=== PATIENT | male | born 1965 | race Caucasian/White ===

== ENCOUNTER 2016-03-19 06:31 | Outpatient (CLI) | payer OTHER ==
[2016-01-05 14:41] VITALS: BMI 33.6
--- NOTE | 2016-03-20 09:15 | ECHO2D ---
Date of Exam: 03/19/16 Ordering Physician: KAUSHIK GONZALES Reason for Echo: SOB, CABG 2013 M-Mode Normal Adult Results LV Dimensions Normal Adult Results AoV Opening excursions >1.6 >1.6 LVEDD-base- 3.5-5.8 4.9 Ao root dimensions 2.0-3.7 3.4 LVESD-base- 3.1-4.6 L. Atrium dimensions 1.9-3.8 5.0 Post. Wall thickness 0.8-1.1 1.1 IV septum (thickness) 0.7-1.2 1.2 Post. Wall excursion 0.72-1.3 NORMAL Septal motion 0.4 Systolic motion R. Ventricular cavity 1.5-2.0 NORMAL LVEF 60% 45% Paradoxical septal wall motion 2-D : HYPOKINETIC SEPTUM/ENLARGED LEFT ATRIAL SIZE/NO EFFUSION, NO THROMBUS-- NORMAL LEFT VENTRICULAR SIZE M-MODE: MV: NORMAL AV: NORMAL TV: NORMAL PV: CHAMBER SIZE: ENLARGED LEFT ATRIAL CAVITY WALL MOTION: HYPOKINETIC SEPTUM PERICARDIUM: NORMAL INTERPRETATION: 1. BORDERLINE LEFT VENTRICULAR HYPERTROPHY, ENLARGED LEFT ATRIAL CAVITY 2. HYPOKINETIC SEPTUM--LEFT VENTRICULAR EJECTION FRACTION 45% 3. NORMAL VALVES MTDD
== END 2016-03-19 06:32 | disposition home or self-care (01) ==
LOC: CAR 06:31
PROVIDERS: ATTEND Emergency Medicine
DX: R06.02 Shortness of breath (principal)

== ENCOUNTER 2016-05-24 17:00 | Emergency (ER) ==
[2016-05-24 17:05] VITALS: BP 146/81; TEMP 99.2; BMI 34.2
[2016-05-24] MEDS ORDERED: DEMEROL 25 MG/ML SYRINGE IM STA (17:32)
[2016-05-24] MEDS ORDERED: ZOFRAN 4 MG/2 ML IM STA (17:32)
--- NOTE | 2016-05-24 17:35 | ED.PDOC ---
General ED Provider: Dr. KAUSHIK GONZALES Chief Complaint: Neck Injury Stated Complaint: Patient fell at home on , hurt right side of the neck. hurts to move, Time Seen by Physician: 17:33 Mode of Arrival: Walk-In Information Source: Patient Primary Care Provider: AIME MONROE Nursing and Triage Documentation Reviewed and Agree: Yes Musculoskeletal Complaint Exam - Neck Pain Complaint/Exam Mechanism of Injury: Reports: Trauma Symptoms Are: Still present Timing: Constant Episodes Lasting: Days Initial Severity: Moderate Current Severity: Severe Location: Reports: Radiating Character: Reports: Aching, Throbbing Aggravating: Reports: Movement Alleviating: Reports: None Associated Signs and Symptoms: Denies: Swelling, Redness, Bruising, Fever, Nuchal rigidity, Weakness, Headache, Paresthesia Meningitis Risk Factors: Reports: None Cervical Spine Injury Risk Factors: Reports: None Related Surgical History: Reports: None Carotid Bruit Present: No Pain on Passive Flexion: No Positive Kernig's Sign: No ROM Limited In: Present: Flexion, Extension Tenderness: Present: Midline, Paraspinal Radiates to: Present: Right arm Focal Weakness: Present: None Focal Sensory Loss: Reports: None Differential Diagnoses: Sprain, Trauma Review of Systems - Review Of Systems Constitutional: Reports: No symptoms Eyes: Reports: No symptoms Ears, Nose, Mouth, Throat: Reports: No symptoms Respiratory: Reports: No symptoms Cardiac: Reports: No symptoms GI: Reports: No symptoms : Reports: No symptoms Musculoskeletal: Reports: Back pain, Joint pain Skin: Reports: No symptoms Neurological: Reports: No symptoms Endocrine: Reports: No symptoms Hematologic/Lymphatic: Reports: No symptoms All Other Systems: Reviewed and Negative Past Medical History - Past Medical History Previously Healthy: Yes Endocrine: Reports: DM 2 Cardiovascular: Reports: None Respiratory: Reports: None Hematological: Reports: None Gastrointestinal: Reports: None Genitourinary: Reports: Kidney stones Neuro/Psych: Reports: None Musculoskeletal: Reports: Arthritis Cancer: Reports: None - Surgical History General Surgical History: Reports: CABG (2014), Back Surgery (left knee surgery , right shoulder, back surgery x 4) - Family History Family History: Reports: Unknown - Social History Smoking Status: Never smoker Hx Substance Use: No Alcohol Screening: None Physical Exam - Physical Exam Appearance: Ill-appearing, Obese Pain Distress: Moderate Eyes: MOUNA, EOMI, Conjunctiva clear ENT: Ears normal, Nose normal, Oropharynx normal Respiratory: Airway patent, Breath sounds clear, Breath sounds equal, Respirations nonlabored Cardiovascular: RRR, Pulses normal, No rub, No murmur GI/: Soft, Nontender, No masses, Bowel sounds normal, No Organomegaly Musculoskeletal: Limited ROM Skin: Warm, Dry, Normal color Neurological: Sensation intact, Motor intact, Reflexes intact, Cranial nerves intact, Alert, Oriented Psychiatric: Affect appropriate, Mood appropriate Interpretation - Radiology Interpretation Radiology Interpretation By: Radiologist Radiology Results: Negative Exam Interpreted: CT Scan Critical Care Note - Critical Care Note Total Time (mins): 0 Course - Course Orders, Labs, Meds: Orders Category Date Time Status Meperidine HCl/Pf [Demerol 25 mg/ml Syringe] MEDS 05/24/16 17:32 Discontinued 25 mg IM ONCE STA Ondansetron HCl/Pf [Zofran 4 mg/2 ml] MEDS 05/24/16 17:32 Discontinued 4 mg IM ONCE STA CT CERVICAL SPINE W/O CONTRAST Stat RADS 05/24/16 17:10 Completed Medications Discontinued Medications Generic Name Dose Route Start Last Admin Trade Name Konstantinq PRN Reason Stop Dose Admin Meperidine HCl 25 mg 05/24/16 17:32 Demerol 25 Mg/Ml Syringe IM 05/24/16 17:33 ONCE STA Ondansetron HCl 4 mg 05/24/16 17:32 Zofran 4 Mg/2 Ml IM 05/24/16 17:33 ONCE STA Vital Signs: Temp Pulse Resp BP Pulse Ox 05/24/16 17:01 99.2 F 89 16 146/81 H 96 Departure - Departure Time of Disposition: 18:09 Disposition: HOME SELF-CARE Discharge Problem: Injury of neck Cervical sprain Qualifiers: Encounter type: initial encounter Qualifier Code: (S13.9XXA) Sprain of joints and ligaments of unspecified parts of neck, initial encounter Instructions: Cervical Strain (ED) Condition: Stable Pt referred to PMD for follow-up: Yes Additional Instructions: rest hot pack [place] 7.5 po tid x 12 flexeril 5 po bid x 7 days prednisone 10 po bid x 7 days Prescriptions: Cyclobenzaprine HCl [Flexeril] 5 mg PO BID #14 tablet Hydrocodone Bit/Acetaminophen [[place] 7.5-325] 1 each PO Q8H #12 tablet Prednisone 10 mg PO BIDWM #14 tablet Allergies/Adverse Reactions: Allergies No Known Allergies Allergy (Unverified 05/24/16 17:06) Home Medications: Ambulatory Orders Atorvastatin Calcium [Lipitor] 40 mg PO BEDTIME 05/24/16 Cyclobenzaprine HCl [Flexeril] 5 mg PO BID #14 tablet 05/24/16 Hydrocodone Bit/Acetaminophen [[place] 7.5-325] 1 each PO Q8H #12 tablet 05/24/16 Lisinopril/Hydrochlorothiazide [Lisinopril-Hctz 10-12.5 mg Tab] 1 each PO DAILY 05/24/16 Prednisone 10 mg PO BIDWM #14 tablet 05/24/16 Propranolol HCl 40 mg PO DAILY 05/24/16 Disposition Discussed With: Patient, Family
--- NOTE | 2016-05-24 17:41 | CT ---
EXAM: CT scan cervical spine HISTORY: Trauma COMPARISON: None. FINDINGS: Contiguous axial images were obtained through the cervical spine utilizing 2-mm collimati on. Sagittal and coronal reconstructions were imaged and reviewed.. There is loss of the normal ce rvical lordosis suggesting paraspinal muscle spasm. The vertebral bodies are normal in height and a lignment. Degenerate disc disease is noted at C5-C6 and C6-C7. The facet joints are intact. There is multilevel central canal and foraminal stenosis. IMPRESSION: Loss normal cervical lordosis suggesting muscle spasm. No acute findings.
== END 2016-05-24 18:45 | disposition home or self-care (01) ==
LOC: ED 17:00
DX: S13.9XXA Sprain of joints and ligaments of unspecified parts of neck, initial encounter (principal); W19.XXXA Unspecified fall, initial encounter; Y92.009 Unspecified place in unspecified non-institutional (private) residence as the place of occurrence of the external cause
CPT/HCPCS: 96372; 99283

== ENCOUNTER 2016-06-23 14:16 | Emergency (ER) ==
[2016-06-23 14:16] VITALS: BMI 34.2
[2016-06-23 14:21] VITALS: BP 132/93; TEMP 98.5
--- NOTE | 2016-06-23 15:16 | ED.PDOC ---
General ED Provider: Dr. LAURA AGOSTO JR Chief Complaint: Back Pain Stated Complaint: patient felt pop in lower back when helping father out of wheelchair. states he has pain in both legs when he tries to put weight on them. c/o numbness to left leg all the way to toes. 45 MINUTES 98.5 8620 95% 132/93 8/10 Time Seen by Physician: 15:16 Mode of Arrival: Wheelchair Information Source: Patient Exam Limitations: No limitations Primary Care Provider: AIME MONROE Nursing and Triage Documentation Reviewed and Agree: No Review of Systems - Review Of Systems Constitutional: Reports: No symptoms Eyes: Reports: No symptoms Ears, Nose, Mouth, Throat: Reports: No symptoms Respiratory: Reports: No symptoms Cardiac: Reports: No symptoms GI: Reports: No symptoms : Reports: No symptoms Musculoskeletal: Reports: Back pain Skin: Reports: No symptoms Neurological: Reports: Tingling, Weakness Endocrine: Reports: No symptoms Hematologic/Lymphatic: Reports: No symptoms All Other Systems: Other Past Medical History - Past Medical History Previously Healthy: Yes Endocrine: Reports: DM 2 Cardiovascular: Reports: CAD Respiratory: Reports: None Hematological: Reports: None Gastrointestinal: Reports: None Genitourinary: Reports: Kidney stones Neuro/Psych: Reports: None Musculoskeletal: Reports: Arthritis Cancer: Reports: None - Surgical History General Surgical History: Reports: CABG (2014), Back Surgery (left knee surgery , right shoulder, back surgery x 4) - Family History Family History: Reports: Unknown - Social History Smoking Status: Never smoker Hx Substance Use: No Alcohol Screening: None Physical Exam - Physical Exam Appearance: Well-appearing, Obese Pain Distress: Moderate Eyes: MOUNA, EOMI, Conjunctiva clear ENT: Ears normal, Nose normal, Oropharynx normal Neck: Supple Respiratory: Airway patent, Breath sounds clear, Breath sounds equal, Respirations nonlabored Cardiovascular: RRR, Pulses normal, No rub, No murmur GI/: Soft, Nontender, No masses, Bowel sounds normal, No Organomegaly Musculoskeletal: Normal strength, ROM intact, No edema, No calf tenderness ( tender low back left>>right) Skin: Warm, Dry, Normal color Neurological: Sensation intact, Motor intact, Reflexes intact, Cranial nerves intact, Alert, Oriented Psychiatric: Affect appropriate, Mood appropriate Critical Care Note - Critical Care Note Total Time (mins): 0 Course - Course Orders, Labs, Meds: Orders Category Date Time Status Hydromorphone HCl/Pf [Dilaudid 2 mg/ml Syringe] MEDS 06/23/16 17:04 Discontinued 2 mg IM ONCE STA Ketorolac Tromethamine [Toradol] MEDS 06/23/16 15:34 Discontinued 60 mg IM ONCE STA Ondansetron HCl/Pf [Zofran 4 mg/2 ml] MEDS 06/23/16 17:04 Discontinued 4 mg IM ONCE STA Promethazine HCl [Phenergan 25 mg/ml Vial] MEDS 06/23/16 15:35 Discontinued 25 mg IM ONCE STA CT LUMBAR SPINE W/O CONTRAST Stat RADS 06/23/16 15:35 Completed Medications Discontinued Medications Generic Name Dose Route Start Last Admin Trade Name Freq PRN Reason Stop Dose Admin Hydromorphone HCl 2 mg 06/23/16 17:04 06/23/16 17:28 Dilaudid 2 Mg/Ml Syringe IM 06/23/16 17:05 2 mg ONCE STA Administration Ketorolac Tromethamine 60 mg 06/23/16 15:34 06/23/16 16:12 Toradol IM 06/23/16 15:35 60 mg ONCE STA Administration Ondansetron HCl 4 mg 06/23/16 17:04 06/23/16 17:28 Zofran 4 Mg/2 Ml IM 06/23/16 17:05 4 mg ONCE STA Administration Promethazine HCl 25 mg 06/23/16 15:35 06/23/16 16:13 Phenergan 25 Mg/Ml Vial IM 06/23/16 15:36 25 mg ONCE STA Administration Vital Signs: Temp Pulse Resp BP Pulse Ox 06/23/16 14:17 98.5 F 86 20 132/93 H 95 Departure - Departure Time of Disposition: 17:47 Disposition: HOME SELF-CARE Discharge Problem: Low back strain Instructions: Low Back Strain (ED), Lower Back Exercises (ED) Condition: Good Pt referred to PMD for follow-up: Yes Additional Instructions: limit lifting for two weeks recheck PMD one week avoid bed rest Please follow-up with Dr. Monroe in 1-5 days. Prescriptions: Hydrocodone Bit/Acetaminophen [[place] 10-325] 1 each PO Q6HR PRN #14 tablet PRN Reason: Severe Pain Naproxen [Naprosyn] 500 mg PO Q12HR PRN #30 tablet PRN Reason: PAIN Cyclobenzaprine HCl [Flexeril] 5 mg PO TID PRN #15 tablet PRN Reason: Spasms Allergies/Adverse Reactions: Allergies No Known Allergies Allergy (Unverified 05/24/16 17:06) Home Medications: Ambulatory Orders Atorvastatin Calcium [Lipitor] 40 mg PO BEDTIME 05/24/16 Lisinopril/Hydrochlorothiazide [Lisinopril-Hctz 10-12.5 mg Tab] 1 each PO DAILY 05/24/16 Propranolol HCl 40 mg PO DAILY 05/24/16 Canagliflozin [Invokana] 300 mg PO DAILY 06/23/16 Cyclobenzaprine HCl [Flexeril] 5 mg PO TID PRN #15 tablet 06/23/16 Hydrocodone Bit/Acetaminophen [[place] 10-325] 1 each PO Q6HR PRN #14 tablet 06/23 Insulin Glargine,Hum.rec.anlog [Lantus Solostar] 100 unit SQ BEDTIME 06/23/16 Insulin Lispro [Humalog] 10 unit SUBCUT TIDWM PRN 06/23/16 Naproxen [Naprosyn] 500 mg PO Q12HR PRN #30 tablet 06/23/16
[2016-06-23] MEDS ORDERED: TORADOL IM STA (15:34)
[2016-06-23] MEDS ORDERED: PHENERGAN 25 MG/ML VIAL IM STA (15:35)
--- NOTE | 2016-06-23 16:39 | CT ---
Exam: CT exam of the lumbar spine without intravenous contrast. Comparison: 12/16/2015. Reason for exam: Acute pain left lumbar spine. FINDINGS: Multilevel degenerative disc disease is seen throughout the lumbar spine with anterior and posterior osteophyte formation and facet hypertrophy and loss of intervertebral body disc space height. No acute fracture. The vertebral body heights are relatively well maintained. There is a similar a ppearing grade 1 retrolithesis of L5 on S1. T11-T12: Small broad-based disc bulge with minimal impression on the thecal sac and minimal foramin al narrowing secondary to facet hypertrophy. T11-L1: No significant impression on the central canal or foraminal narrowing. L1-L2: Small broad-based disc bulge with minimal impression on the thecal sac and mild foraminal na rrowing bilaterally secondary to a combination of extruded disc and facet hypertrophy. L2-L3: Small broad-based disc bulge with minimal impression on the thecal sac and mild bilateral fo raminal narrowing secondary to a combination of disc disease, ligamentous and facet hypertrophy. L3-L4: Small broad-based disc bulge causing minimal impression on the thecal sac and mild central c anal narrowing. There is mild right and moderate left foraminal narrowing secondary to a combinatio n of extruded disc with ligamentous and facet hypertrophy. There is vacuum disc phenomenon with mod erate degenerative changes in the left superior and inferior articulating facets at this level. L4-L5: Small broad-based disc bulge with vacuum disc phenomenon causing minimal impression on the ce ntral canal with mild right-sided foraminal narrowing and moderate left-sided foraminal narrowing se condary to a combination of ligamentous hypertrophy and facet arthropathy. There is moderate degene rative change in the articulating facets on the left at this level with vacuum disc phenomenon. L5-S1: Broad-based disc bulge with mild to moderate narrowing of the foramina bilaterally left wors e right secondary to extruded disc, posterior osteophyte formation, with ligamentous and facet hyper trophy. Impression: 1. No acute fracture is seen within the lumbar spine. 2. Multilevel degenerative disc disease with moderate to marked facet arthropathy and vacuum disc p henomenon with anterior osteophyte formation and intervertebral body disc space height loss. If clinical conc shena exists for radiculopathy or myelopathy MRI may be performed.
[2016-06-23] MEDS ORDERED: DILAUDID 2 MG/ML SYRINGE IM STA (17:04)
[2016-06-23] MEDS ORDERED: ZOFRAN 4 MG/2 ML IM STA (17:04)
== END 2016-06-23 18:22 | disposition home or self-care (01) ==
LOC: ED 14:16
DX: S39.012A Strain of muscle, fascia and tendon of lower back, initial encounter (principal); X50.0XXA Overexertion from strenuous movement or load, initial encounter
CPT/HCPCS: 96372; 99283

== ENCOUNTER 2016-06-27 10:19 | Inpatient (IN) ==
[2016-06-27 10:55] VITALS: BMI 36.1
[2016-06-27] MEDS ORDERED: DILAUDID 2 MG/ML SYRINGE IM STA (11:03)
[2016-06-27] MEDS ORDERED: DECADRON 4 MG/ML SDV IM STA (11:03)
[2016-06-27] MEDS ORDERED: DILAUDID 2 MG/ML SYRINGE ONE (11:37)
[2016-06-27] MEDS: TORADOL IVP SCH ×2 (14:42→21:50)
[2016-06-27] MEDS: NORCO 7.5-325 PO SCH ×2 (14:43→20:27)
[2016-06-27] MEDS: MOBIC PO SCH (17:08)
[2016-06-27] MEDS: PREDNISONE PO SCH (17:08)
[2016-06-27] MEDS: HUMULIN R SUBCUT PRN ×2 (17:20→20:21)
[2016-06-27] MEDS: LYRICA PO SCH (20:20)
[2016-06-27] MEDS: LIPITOR PO SCH (20:20)
[2016-06-27] MEDS: LANTUS SUBCUT SCH (20:21)
[2016-06-27] MEDS ORDERED: NON-FORMULARY MEDICATION (Atorvastatin Calcium [Lipitor] 40 MG) PO SCH ×22 (21:00)
[2016-06-27] MEDS ORDERED: FLEXERIL PO SCH (21:00)
[2016-06-27] MEDS ORDERED: INSULIN GLARGINE HUM REC ANLOG 70 UNIT SQ SCH (21:00)
[2016-06-27] MEDS ORDERED: VALIUM PO SCH (21:00)
[2016-06-28] MEDS: TORADOL IVP SCH ×3 (05:42→17:50)
[2016-06-28] MEDS: PROTONIX PO SCH (05:42)
[2016-06-28] MEDS: NORCO 7.5-325 PO SCH ×3 (05:42→20:47)
[2016-06-28] MEDS: HUMULIN R SUBCUT PRN ×4 (06:54→20:48)
[2016-06-28] MEDS: HYDROCHLOROTHIAZIDE PO SCH (08:55)
[2016-06-28] MEDS: PREDNISONE PO SCH ×2 (08:55→16:58)
[2016-06-28] MEDS: LANTUS SUBCUT SCH ×2 (09:07→20:47)
[2016-06-28] MEDS: LYRICA PO SCH ×2 (09:12→20:47)
[2016-06-28] MEDS: ZESTRIL PO SCH (09:12)
[2016-06-28] MEDS: TOPROL XL PO SCH (09:12)
[2016-06-28] MEDS: NON-FORMULARY MEDICATION (Canagliflozin [Invokana] 300 MG) PO SCH (09:18)
[2016-06-28 11:58] LABS: BASOPHILS % (AUTO) 0.2 % (0.0-3.0); EOSINOPHILS # (AUTO) 0.1 K/ul (0.0-0.7); EOSINOPHILS % (AUTO) 0.4 % (0.0-7.0); HEMOGLOBIN 13.7 g/dl (14.0-18.0); IMMATURE GRANULOCYTE % (AUTO) 0.5 % (0.0-5.0); LYMPHOCYTES # (AUTO) 1.8 K/uL (0.60-3.4); LYMPHOCYTES % (AUTO) 13.1 (10.0-50.0); MEAN CORPUSCULAR HEMOGLOBIN 31.1 pg (27.0-31.0); MEAN CORPUSCULAR HGB CONC 34.3 (31.8-35.4); MEAN CORPUSCULAR VOLUME 90.9 fl (80.0-94.0); MONOCYTES # (AUTO) 0.8 K/uL (0.4-2.0); MONOCYTES % (AUTO) 5.5 (0-10); NEUTROPHILS % (AUTO) 80.3; PLATELET COUNT 286 10^3/uL (140-440); WHITE BLOOD COUNT 13.73 K/ul (4.2-10.2)
[2016-06-28 12:19] LABS: ALBUMIN 3.8 g/dL (3.4-5.0); ANION GAP 16.1; BILIRUBIN,TOTAL 0.34 mg/dL (0.00-1.20); BUN/CREATININE RATIO 29.7; CALCIUM 10.1 mg/dL (8.2-10.2); CREATININE 1.01 mg/dL (0.60-1.10); POTASSIUM 4.1 mmol/L (3.5-5.1); TOTAL PROTEIN 7.6 g/dL (6.4-8.2)
--- NOTE | 2016-06-28 14:48 | DI ---
EXAM: Chest two views HISTORY: Cough COMPARISON: 05/20/2012 TECHNIQUE: Two views of the chest were performed FINDINGS: The lungs are clear. There is no pleural effusion or pneumothorax. The heart is mildly enlarged and unchanged in size. The mediastinal contour is normal. There are median sternotomy wire s. There are no acute abnormalities of the bones. IMPRESSION: Cardiomegaly. No acute cardiopulmonary process.
--- NOTE | 2016-06-28 16:51 | MRI ---
EXAM: Lumbar spine MRI without contrast. HISTORY: Back pain. COMPARISON: Lumbar spine CT scan 06/23/2016 and lumbar spine MRI 05/20/2010. TECHNIQUE: Multiplanar, multisequence MR images were acquired of the lumbar spine without contrast. FINDINGS: Five lumbar-type vertebra are present. There is there is 2.3 mm retrolisthesis of L3 on L 4 and 5.4 mm retrolisthesis of L5 on S1. The superior endplate of S1 is mildly smaller than the inf erior endplate of L5. The lumbar vertebra are normal in height and intrinsic bone marrow signal. A t L1-2, there is mild disc space narrowing and endplate irregularity with small chronic Schmorl's no ariane and disc desiccation. At L3-4, L4-5 and L5-S1, there is moderate disc space narrowing with mild to moderate degenerative endplate changes, disc desiccation and vacuum phenomenon. Conus medullari s ends at L1 and has normal signal intensity. Canal diameter is developmentally narrow. The visualized liver and kidneys are unremarkable. There are no paravertebral masses. L1-2: There is a minimal disc bulge and mild bilateral hypertrophic facet arthropathy and ligamentu m flavum hypertrophy. L2-3: There is a minimal disc bulge that minimally narrows inferior neural foramina bilaterally and mild to moderate bilateral hypertrophic facet arthropathy and ligamentum flavum hypertrophy. There is mild spinal stenosis and minor right and mild left neural foraminal stenosis. AP diameter of th e thecal sac is 9 mm. L3-4: There is a mild disc bulge and mild to moderate bilateral hypertrophic facet arthropathy and ligamentum flavum hypertrophy. This causes mild spinal stenosis, left lateral recess stenosis with possible encroachment on the left L4 nerve roots and mild right and mild to moderate left neural for aminal stenosis with encroachment on the exiting left L3 nerve. AP diameter of the thecal sac is 9. 4 mm. L4-5: There is a diffuse disc bulge that is asymmetric to the left with mild to moderate right and moderate left hypertrophic facet arthropathy and ligamentum flavum hypertrophy. There is a moderate left facet effusion. These findings cause mild spinal stenosis, left lateral recess stenosis with p ossible encroachment on the left L5 nerve roots and mild right and moderate left neural foraminal st enosis with encroachment on the left L4 nerve. AP diameter of the thecal sac is 9.4 mm. L5-S1: There are postoperative bilateral hemilaminectomy and partial medial facetectomy changes. T here is hypointense T1 soft tissue signal in the anterior and right lateral epidural space which ext ends into the medial right neural foramen partially surrounding the right L5 nerve and right S1 nerv e in the lateral recess. There is more focal soft tissue signal along the right posterolateral charles in of the disc that extends into the right neural foramen that may represent asymmetry of the disc b ulge and fibrosis. Contrast was not administered. There is a dorsal spondylotic ridge with a more focal central component that effaces the ventral thecal sac, contacts both anterior S1 nerves, grea ter on the right and narrows the inferior right neural foramen. Residual bilateral facet hypertrophy is present. There is severe bilateral neural foraminal stenosis, greater on the right with encroac hment on both L5 nerves. IMPRESSION: 1. Moderate lumbar degenerative spondylosis. 2. Mild spinal stenosis at L2-3, L3-4 and L4-5. 3. Status post bilateral L5-S1 hemilaminectomies and partial medial facetectomies. No central nina l stenosis. 4. Mild to moderate left L3-4, moderate left L4-5 and severe bilateral L5-S1 neural foraminal steno sis, greater on the right with encroachment on both L5 nerves.
[2016-06-28] MEDS: MOBIC PO SCH (16:58)
[2016-06-28] MEDS: LIPITOR PO SCH (20:47)
[2016-06-29] MEDS: TORADOL IVP SCH ×3 (00:50→17:11)
[2016-06-29] MEDS: HUMULIN R SUBCUT PRN ×4 (06:16→20:39)
[2016-06-29] MEDS: NORCO 7.5-325 PO SCH ×3 (06:17→20:40)
[2016-06-29] MEDS: PROTONIX PO SCH (06:17)
[2016-06-29 06:52] LABS: BASOPHILS % (AUTO) 0.3 % (0.0-3.0); EOSINOPHILS # (AUTO) 0.3 K/ul (0.0-0.7); EOSINOPHILS % (AUTO) 2.3 % (0.0-7.0); HEMATOCRIT 40.2 % (42.0-52.0); HEMOGLOBIN 13.7 g/dl (14.0-18.0); IMMATURE GRANULOCYTE % (AUTO) 0.3 % (0.0-5.0); LYMPHOCYTES # (AUTO) 3.3 K/uL (0.60-3.4); LYMPHOCYTES % (AUTO) 27.6 (10.0-50.0); MEAN CORPUSCULAR HEMOGLOBIN 31.1 pg (27.0-31.0); MEAN CORPUSCULAR HGB CONC 34.1 (31.8-35.4); MEAN CORPUSCULAR VOLUME 91.2 fl (80.0-94.0); MONOCYTES # (AUTO) 0.8 K/uL (0.4-2.0); MONOCYTES % (AUTO) 6.5 (0-10); NEUTROPHILS # (AUTO) 7.4 K/ul (2.0-6.9); PLATELET COUNT 270 10^3/uL (140-440); RED BLOOD COUNT 4.41 10^6/ul (4.70-6.10)
[2016-06-29 07:09] LABS: ALBUMIN 3.7 g/dL (3.4-5.0); ALBUMIN/GLOBULIN RATIO 1.03; ANION GAP 15.7; BILIRUBIN,TOTAL 0.34 mg/dL (0.00-1.20); BUN/CREATININE RATIO 26.89; CALCIUM 9.6 mg/dL (8.2-10.2); CREATININE 1.19 mg/dL (0.60-1.10); POTASSIUM 3.7 mmol/L (3.5-5.1); TOTAL PROTEIN 7.3 g/dL (6.4-8.2)
[2016-06-29] MEDS: ZESTRIL PO SCH (08:58)
[2016-06-29] MEDS: HYDROCHLOROTHIAZIDE PO SCH (08:58)
[2016-06-29] MEDS: TOPROL XL PO SCH (08:59)
[2016-06-29] MEDS: PREDNISONE PO SCH ×2 (08:59→16:46)
[2016-06-29] MEDS: LYRICA PO SCH ×2 (08:59→20:40)
[2016-06-29] MEDS: NON-FORMULARY MEDICATION (Canagliflozin [Invokana] 300 MG) PO SCH (09:00)
[2016-06-29] MEDS: LANTUS SUBCUT SCH ×2 (09:00→20:39)
[2016-06-29] MEDS: MOBIC PO SCH (16:45)
[2016-06-29] MEDS: LIPITOR PO SCH (20:39)
[2016-06-30] MEDS: TORADOL IVP SCH ×3 (01:43→17:35)
[2016-06-30] MEDS: PROTONIX PO SCH (05:48)
[2016-06-30] MEDS: HUMULIN R SUBCUT PRN ×4 (05:49→21:18)
[2016-06-30] MEDS: NORCO 7.5-325 PO SCH ×3 (05:49→21:17)
[2016-06-30 06:06] LABS: BASOPHILS # (AUTO) 0.1 K/uL (0-0.2); BASOPHILS % (AUTO) 0.5 % (0.0-3.0); EOSINOPHILS # (AUTO) 0.3 K/ul (0.0-0.7); EOSINOPHILS % (AUTO) 2.4 % (0.0-7.0); HEMATOCRIT 39.3 % (42.0-52.0); HEMOGLOBIN 13.5 g/dl (14.0-18.0); IMMATURE GRANULOCYTE % (AUTO) 0.6 % (0.0-5.0); LYMPHOCYTES # (AUTO) 2.9 K/uL (0.60-3.4); LYMPHOCYTES % (AUTO) 27.1 (10.0-50.0); MEAN CORPUSCULAR HGB CONC 34.4 (31.8-35.4); MEAN CORPUSCULAR VOLUME 90.3 fl (80.0-94.0); MONOCYTES # (AUTO) 0.9 K/uL (0.4-2.0); NEUTROPHILS # (AUTO) 6.6 K/ul (2.0-6.9); NEUTROPHILS % (AUTO) 61.4; PLATELET COUNT 262 10^3/uL (140-440); RED BLOOD COUNT 4.35 10^6/ul (4.70-6.10); WHITE BLOOD COUNT 10.79 K/ul (4.2-10.2)
[2016-06-30 06:23] LABS: ALBUMIN 3.5 g/dL (3.4-5.0); ALBUMIN/GLOBULIN RATIO 1.03; ANION GAP 13.9; BILIRUBIN,TOTAL 0.34 mg/dL (0.00-1.20); BUN/CREATININE RATIO 31.25; CALCIUM 9.3 mg/dL (8.2-10.2); CREATININE 0.96 mg/dL (0.60-1.10); POTASSIUM 3.9 mmol/L (3.5-5.1); TOTAL PROTEIN 6.9 g/dL (6.4-8.2)
[2016-06-30] MEDS ORDERED: NUBAIN IM STA (08:08)
[2016-06-30 08:27] LABS: CHOL/HDL RATIO 3.7 (4.5-6.4)
[2016-06-30] MEDS: ZESTRIL PO SCH (08:36)
[2016-06-30] MEDS: LYRICA PO SCH ×2 (08:36→21:17)
[2016-06-30] MEDS: PREDNISONE PO SCH (08:37)
[2016-06-30] MEDS: TOPROL XL PO SCH (08:37)
[2016-06-30] MEDS: HYDROCHLOROTHIAZIDE PO SCH (08:37)
[2016-06-30] MEDS: LANTUS SUBCUT SCH ×2 (08:39→21:17)
[2016-06-30] MEDS: NON-FORMULARY MEDICATION (Canagliflozin [Invokana] 300 MG) PO SCH (09:36)
--- NOTE | 2016-06-30 11:40 | PCM.PROG ---
Attending Provider: ATTENDING PROVIDER: Dr. AIME MONROE DATE OF SERVICE: 06/30/16 SUBJECTIVE: This 50 year old WHITE/ M was hospitalized 06/27/16. The patient is admitted with severe left sciatica with severe pain in left lower extremity with tingling and numbness. The pain is less than before 5 to 7 on a scale of 1 to 10. The patient is up to the bathroom with walker. The left lower extremity is thinner than the right. The patient is up and about. The pain is continuous; he had surgery done on his lower back. REVIEW OF SYSTEMS: CONSTITUTIONAL: No night sweats. No fatigue, malaise, lethargy. No fever or chills. HEENT: Eyes: No visual changes. No eye pain. No eye discharge. ENT: No runny nose. No epistaxis. No sinus pain. No odynophagia. No congestion. RESPIRATORY: No cough, no congestion. No hemoptysis. CARDIOVASCULAR: No angina symptoms. No CHF symptoms. No atypical chest pain for CAD. No palpitations. No shortness of breath. GASTROINTESTINAL: No abdominal pain. No nausea or vomiting. No diarrhea or constipation. No hematemesis. No hematochezia. GENITOURINARY: No urgency. No frequency. No dysuria. No hematuria. No obstructive symptoms. No discharge. No pain. No significant abnormal bleeding. MUSCULOSKELETAL: Pain in in left lower extremity with tingling and numbness. NEUROLOGICAL: Awake, alert, oriented to time, place and person. No headache. No neck pain. No syncope. No seizures. No dizziness. PSYCHIATRIC: Not anxious. No depression. No suicidal thoughts. No homicidal thoughts. SKIN: No rash. No lesions. No wounds. ENDOCRINE: No unexplained weight loss. No weight gain. HEMATOLOGIC/LYMPHATIC: No anemia. No purpura. No petechiae. No prolonged or excessive bleeding. No palpable lymph nodes. PHYSICAL EXAMINATION: GENERAL: The patient is awake, alert and oriented, lying/sitting in bed in no distress. VITAL SIGNS: Temperature 97.6 F, Pulse 64, Respiratory Rate 20, BP 92/56, Pulse Ox 95% HEENT: Head normocephalic, atraumatic. Eyes: Extraocular muscles are intact. Pupils are equal, round and reactive to light and accommodation. Ears: No lesions. Nose appeared normal. Throat: No exudate or erythema. NECK: Supple. No JVD, no carotid bruit. No lymphadenopathy or thyromegaly. LUNGS: Clear to auscultation. Percussion note normal. Chest symmetrical. HEART: S1, S2, no S3. No murmurs. No cyanosis or clubbing. No ascites. Pulses: Dorsalis pedis and posterior tibial pulses +1 to +2 both sides. ABDOMEN: Soft. Non-tender. Bowel sounds active. No CVA tenderness. No mass felt. EXTREMITIES: No edema. Full range of motion of all extremities, equal. NEUROLOGIC: Increased reflexes on left lower extremity. No headache, no double vision or headache. SKIN: Not dry. Intact. Turgor-normal. LYMPHATIC: No palpable lymph nodes/no lymphedema. MUSCULOSKELETAL: Normal joints with no swelling. Muscle tone is normal. LAB REVIEW: 06/30/16 06:02 06/30/16 06:02 06/30/16 06:02: WBC 10.79 H, RBC 4.35 L, Hgb 13.5 L, Hct 39.3 L, MCV 90.3, MCH 31.0, MCHC 34.4, RDW Coeff of Marit[place] 13.5, Plt Count 262, Immature Gran % (Auto) 0.6, Neut % (Auto) 61.4, Lymph % (Auto) 27.1, Hall % (Auto) 8.0, Eos % (Auto) 2.4, Baso % (Auto) 0.5, Immature Gran # (Auto) 0.1, Neut # 6.6, Lymph # 2.9, Hall # 0.9, Eos # 0.3, Baso # 0.1, Sodium 138, Potassium 3.9, Chloride 104, Carbon Dioxide 24, Anion Gap 13.9, BUN 30 H, Creatinine 0.96, Estimated GFR ( MDRD) 82.00, BUN/Creatinine Ratio 31.25, Glucose 176 H, Calcium 9.3, Total Bilirubin 0.34, AST 12 L, ALT 16, Alkaline Phosphatase 43 L, Total Protein 6.9, Albumin 3.5, Globulin 3.4, Albumin/Globulin Ratio 1.03 ASSESSMENT: 1. Sciatica with radiculopathy. 2. Status post back surgery. 3. Abnormal EKG. 4. Hypertension. 5. Hyperglycemia could be from steroids. PLAN: 1. Refer to [facility] to be seen by back specialist, the patient is to go to the walk in clinic. Also, could be picked up by pain management with them; however, the patient has a scheduled appointment on July 09, 2016, Dr. Gross [facility]. 2. Continue Toradol, [place] and Mobic. 3. Continue Prednisone 10 mg b.i.d. 4. Nubain 10 mg IM once STAT 5. EKG shows inferior wall, will do lipid profile and A1C. Plan and coordination of the patient's care discussed in the presence of Services Rep and nurse. CONDITION: Stable SCRIBED BY: NINA BAKER Surface Grinder Tender scribed while in presence of service performed by Dr. AIME MONROE on 06/30/16 ([id number])
--- NOTE | 2016-06-30 14:43 | PN ---
DATE OF SERVICE: 06/28/16 SUBJECTIVE: The patient is a 50 year old white male hospitalized with left sciatica with severe DJD of spine with couple of surgeries, discectomy in the past. The patient was practically unable to walk, the pain was 8-10 on scale of 1-10 and now the pain is rated as 5 out of scale of 1-10. He is feeling somewhat better and able to move around in the room. The numbness in the left foot and left leg is a little less. REVIEW OF SYSTEMS: CONSTITUTIONAL: No night sweats. No fatigue, malaise, lethargy. No fever or chills. HEENT: Eyes: No visual changes. No eye pain. No eye discharge. ENT: No runny nose. No epistaxis. No sinus pain. No sore throat. No odynophagia. No congestion. RESPIRATORY: No cough, no congestion. No hemoptysis. CARDIOVASCULAR: No angina symptoms. No CHF symptoms. No atypical chest pain for CAD. No palpitations. No shortness of breath. No. PND. No Orthopnea. GASTROINTESTINAL: No abdominal pain. No nausea or vomiting. No diarrhea or constipation. No hematemesis. No hematochezia. GENITOURINARY: No urgency. No frequency. No dysuria. No hematuria. No obstructive symptoms. No discharge. No pain. No significant abnormal bleeding. MUSCULOSKELETAL: No musculoskeletal pain; no joint swelling. Left sciatica pain better, rated as 5-6 on a scale of 1-10. NEUROLOGICAL: No headache. No neck pain. No syncope. No seizures. No dizziness. PSYCHIATRIC: Not anxious. No depression. No suicidal thoughts. No homicidal thoughts. SKIN: No rash. No lesions. No wounds. ENDOCRINE: No unexplained weight loss. No weight gain. HEMATOLOGIC/LYMPHATIC: No anemia. No purpura. No petechiae. No prolonged or excessive bleeding. No palpable lymph nodes. PHYSICAL EXAMINATION: GENERAL: The patient is oriented to time, place and person. VITAL SIGNS: Temperature 97.5, pulse 84, respiratory rate 20, blood pressure 109 /63 and pulse ox 96%. HEENT: Head normocephalic, atraumatic. Eyes: Extraocular muscles are intact. Pupils are equal, round and reactive to light and accommodation. Ears: No lesions. Nose appeared normal. Throat: No exudate or erythema. NECK: Supple. No JVD, no carotid bruit. No lymphadenopathy or thyromegaly. LUNGS: Decreased breath sounds but clear to auscultation. Percussion note normal. Chest symmetrical. HEART: S1, S2, no S3. No murmurs. No cyanosis or clubbing. No ascites. Pulses: Dorsalis pedis and posterior tibial pulses +1 to +2 both sides. ABDOMEN: Soft. Nontender. Bowel sounds active. No CVA tenderness. No mass felt. EXTREMITIES: No edema. Full range of motion of all extremities, equal. NEUROLOGIC: No focal deficit. Cranial nerves II through XII are grossly intact. No headache, no double vision or headache. SKIN: Not dry. Intact. Turgor - normal. LYMPHATIC: No palpable lymph nodes/no lymphedema. MUSCULOSKELETAL: Normal joints with no swelling. Muscle tone is normal. ASSESSMENT: 1. Left sciatica with history of two discectomies in the past PLAN: 1. Continue steroids 2. Continue analgesics 3. Continue exercises 4. MRI showed DJD of the spine. The patient explained about the findings and the patient is going to be referred to neurosurgeon and he agreed. The neurosurgeon may decided to [facility]. The patient already has an appointment with Pain Management with Dr. Hagen CONDITION: Stable. TIME SPENT: More than 30 minutes. Plan and coordination of the patient's care discussed in the presence of nurse. SUHA
--- NOTE | 2016-06-30 14:53 | PN ---
DATE OF SERVICE: 06/29/16 SUBJECTIVE: The patient is a 50 year old white male hospitalized with left sciatica. The patient had tingling and numbness practically unable to walk with severe pain, 9 -10 on scale of 1-10 on admission. The patient's condition has improved and his pain is still there but much less. He has been on steroids and analgesics and anti-inflammatory. MRI report again discussed with the patient and the patient is agreeable to be seen by neurosurgeon. The patient also has an appointment with Pain Management at [facility] pain clinic. REVIEW OF SYSTEMS: CONSTITUTIONAL: No night sweats. No fatigue, malaise, lethargy. No fever or chills. HEENT: Eyes: No visual changes. No eye pain. No eye discharge. ENT: No runny nose. No epistaxis. No sinus pain. No sore throat. No odynophagia. No congestion. RESPIRATORY: No cough, no congestion. No hemoptysis. CARDIOVASCULAR: No angina symptoms. No CHF symptoms. No atypical chest pain for CAD. No palpitations. No shortness of breath. GASTROINTESTINAL: No abdominal pain. No nausea or vomiting. No diarrhea or constipation. No hematemesis. No hematochezia. GENITOURINARY: No urgency. No frequency. No dysuria. No hematuria. No obstructive symptoms. No discharge. No pain. No significant abnormal bleeding. MUSCULOSKELETAL: No musculoskeletal pain; no joint swelling. Back pain. NEUROLOGICAL: No headache. No neck pain. No syncope. No seizures. No dizziness. PSYCHIATRIC: Not anxious. No depression. No suicidal thoughts. No homicidal thoughts. SKIN: No rash. No lesions. No wounds. ENDOCRINE: No unexplained weight loss. No weight gain. HEMATOLOGIC/LYMPHATIC: No anemia. No purpura. No petechiae. No prolonged or excessive bleeding. No palpable lymph nodes. PHYSICAL EXAMINATION: GENERAL: The patient is oriented to time, place and person. VITAL SIGNS: Temperature 97.6, pulse 68, respiratory rate 16, blood pressure 103/65 and pulse ox 96%. HEENT: Head normocephalic, atraumatic. Eyes: Extraocular muscles are intact. Pupils are equal, round and reactive to light and accommodation. Ears: No lesions. Nose appeared normal. Throat: No exudate or erythema. NECK: Supple. No JVD, no carotid bruit. No lymphadenopathy or thyromegaly. LUNGS: Decreased breath sounds but clear to auscultation. Percussion note normal. Chest symmetrical. HEART: S1, S2, no S3. No murmurs. No cyanosis or clubbing. No ascites. Pulses: Dorsalis pedis and posterior tibial pulses +1 to +2 both sides. ABDOMEN: Soft. Nontender. Bowel sounds active. No CVA tenderness. No mass felt. EXTREMITIES: No edema. Full range of motion of all extremities, equal. NEUROLOGIC: No focal deficit. Cranial nerves II through XII are grossly intact. No headache, no double vision or headache. SKIN: Not dry. Intact. Turgor - normal. LYMPHATIC: No palpable lymph nodes/no lymphedema. MUSCULOSKELETAL: Normal joints with no swelling. Muscle tone is normal. LABS: hgb 13.7, hct 40,WBC 11,800 normal differential, creatinine 1.1, BUN 32, potassium 3.7 and T4 TSH normal. ASSESSMENT: 1. Left sciatica with severe DJD of the spine with statue post back surgery PLAN: 1. BMI is 36 and advised to lose weight 2. Weight loss diet discussed 3. Back exercises discussed with the patient and advised back exercises every day 4. The patient is going to be referred to neurosurgeon. 5. Continue followup with Dr. Hagen pain clinic. 6. Narcotics and pain medication with addiction been discussed, Advised not to mix pain medication Narcotics with alcohol or over the counter medications. Advised to stagger the medicine. 7. The patient was explained about steroids, Prednisone, Decadron shot etc with side effects like avascular necrosis of the femur, cataracts, osteoporosis, hyperglycemia, fluid retention and weight gain in detail. CONDITION: Stable Again, discussed about non-steroidal anti-inflammatory and CKD and GI bleed and hypertension. TIME SPENT: More than 30 minutes. Plan and coordination of the patient's care discussed in the presence of nurse. SUHA
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
[2016-06-30] MEDS: MOBIC PO SCH (17:25)
[2016-06-30] MEDS: LIPITOR PO SCH (21:17)
[2016-07-01] MEDS: TORADOL IVP SCH ×3 (00:08→16:12)
[2016-07-01] MEDS: NORCO 7.5-325 PO SCH ×2 (04:53→12:09)
[2016-07-01 05:17] LABS: BASOPHILS # (AUTO) 0.1 K/uL (0-0.2); BASOPHILS % (AUTO) 0.5 % (0.0-3.0); EOSINOPHILS # (AUTO) 0.3 K/ul (0.0-0.7); EOSINOPHILS % (AUTO) 3.1 % (0.0-7.0); HEMATOCRIT 41.2 % (42.0-52.0); HEMOGLOBIN 13.8 g/dl (14.0-18.0); IMMATURE GRANULOCYTE % (AUTO) 0.4 % (0.0-5.0); LYMPHOCYTES # (AUTO) 4.1 K/uL (0.60-3.4); LYMPHOCYTES % (AUTO) 36.7 (10.0-50.0); MEAN CORPUSCULAR HEMOGLOBIN 30.7 pg (27.0-31.0); MEAN CORPUSCULAR HGB CONC 33.5 (31.8-35.4); MEAN CORPUSCULAR VOLUME 91.6 fl (80.0-94.0); MONOCYTES % (AUTO) 8.5 (0-10); NEUTROPHILS # (AUTO) 5.7 K/ul (2.0-6.9); NEUTROPHILS % (AUTO) 50.8; PLATELET COUNT 243 10^3/uL (140-440); WHITE BLOOD COUNT 11.14 K/ul (4.2-10.2)
[2016-07-01 05:40] LABS: ALBUMIN 3.3 g/dL (3.4-5.0); ANION GAP 13.6; BILIRUBIN,TOTAL 0.31 mg/dL (0.00-1.20); BUN/CREATININE RATIO 30.61; CALCIUM 9.3 mg/dL (8.2-10.2); CREATININE 0.98 mg/dL (0.60-1.10); POTASSIUM 3.6 mmol/L (3.5-5.1); TOTAL PROTEIN 6.6 g/dL (6.4-8.2)
[2016-07-01] MEDS: PROTONIX PO SCH (05:59)
[2016-07-01] MEDS ORDERED: PREDNISONE PO SCH (08:00)
[2016-07-01] MEDS ORDERED: VALIUM SYRINGE IVP STA (08:02)
[2016-07-01] MEDS: HYDROCHLOROTHIAZIDE PO SCH (08:25)
[2016-07-01] MEDS: NON-FORMULARY MEDICATION (Canagliflozin [Invokana] 300 MG) PO SCH (08:25)
[2016-07-01] MEDS: TOPROL XL PO SCH (08:26)
[2016-07-01] MEDS: LYRICA PO SCH (08:26)
[2016-07-01] MEDS: ZESTRIL PO SCH (08:26)
[2016-07-01] MEDS: LANTUS SUBCUT SCH (08:27)
[2016-07-01] MEDS ORDERED: NUBAIN IM PRN (08:45)
--- NOTE | 2016-07-01 10:13 | PCM.PROG ---
Attending Provider: ATTENDING PROVIDER: Dr. AIME MONROE DATE OF SERVICE: 07/01/16 SUBJECTIVE: This 50 year old WHITE/ M was hospitalized 06/27/16. The patient is hospitalized with left sciatica. The patient's condition improved initially. This morning he is having a muscle spasm, left lumbar area 6 to 8 on scale of 1 to 10 and quite painful. He states he went to the bathroom and his back started hurting. REVIEW OF SYSTEMS: CONSTITUTIONAL: No night sweats. No fatigue, malaise, lethargy. No fever or chills. HEENT: Eyes: No visual changes. No eye pain. No eye discharge. ENT: No runny nose. No epistaxis. No sinus pain. No odynophagia. No congestion. RESPIRATORY: No cough, no congestion. No hemoptysis. CARDIOVASCULAR: No angina symptoms. No CHF symptoms. No atypical chest pain for CAD. No palpitations. No shortness of breath. GASTROINTESTINAL: No abdominal pain. No nausea or vomiting. No diarrhea or constipation. No hematemesis. No hematochezia. GENITOURINARY: No urgency. No frequency. No dysuria. No hematuria. No obstructive symptoms. No discharge. No pain. No significant abnormal bleeding. MUSCULOSKELETAL: Left sciatica type of pain with muscle spasm. NEUROLOGICAL: Awake, alert, oriented to time, place and person. No headache. No neck pain. No syncope. No seizures. No dizziness. PSYCHIATRIC: Not anxious. No depression. No suicidal thoughts. No homicidal thoughts. SKIN: No rash. No lesions. No wounds. ENDOCRINE: No unexplained weight loss. No weight gain. HEMATOLOGIC/LYMPHATIC: No anemia. No purpura. No petechiae. No prolonged or excessive bleeding. No palpable lymph nodes. PHYSICAL EXAMINATION: GENERAL: The patient is awake, alert and oriented, lying in bed in mild distress. VITAL SIGNS: Temperature 97.0 F, Pulse 74, Respiratory Rate 20, BP 116/73, Pulse Ox 97% HEENT: Head normocephalic, atraumatic. Eyes: Extraocular muscles are intact. Pupils are equal, round and reactive to light and accommodation. Ears: No lesions. Nose appeared normal. Throat: No exudate or erythema. NECK: Supple. No JVD, no carotid bruit. No lymphadenopathy or thyromegaly. LUNGS: Clear to auscultation. Percussion note normal. Chest symmetrical. HEART: S1, S2, no S3. No murmurs. No cyanosis or clubbing. No ascites. Pulses: Dorsalis pedis and posterior tibial pulses +1 to +2 both sides. ABDOMEN: Soft. Non-tender. Bowel sounds active. No CVA tenderness. No mass felt. EXTREMITIES: No edema. Full range of motion of all extremities, equal. NEUROLOGIC: No focal deficit. Cranial nerves II through XII are grossly intact. No headache, no double vision or headache. SKIN: Not dry. Intact. Turgor-normal. LYMPHATIC: No palpable lymph nodes/no lymphedema. MUSCULOSKELETAL: Normal joints with no swelling. Muscle tone is normal. LAB REVIEW: 07/01/16 05:12 07/01/16 05:12 07/01/16 05:12: WBC 11.14 H, RBC 4.50 L, Hgb 13.8 L, Hct 41.2 L, MCV 91.6, MCH 30.7, MCHC 33.5, RDW Coeff of [place]it[place] 13.6, Plt Count 243, Immature Gran % (Auto) 0.4, Neut % (Auto) 50.8, Lymph % (Auto) 36.7, [place] % (Auto) 8.5, Eos % (Auto) 3.1, Baso % (Auto) 0.5, Immature Gran # (Auto) 0.1, Neut # 5.7, Lymph # 4.1 H, Min[place] # 1.0, Eos # 0.3, Baso # 0.1, Sodium 141, Potassium 3.6, Chloride 105, Carbon Dioxide 26, Anion Gap 13.6, BUN 30 H, Creatinine 0.98, Estimated GFR ( MDRD) 80.00, BUN/Creatinine Ratio 30.61, Glucose 133 H, Calcium 9.3, Total Bilirubin 0.31, AST 11 L, ALT 15, Alkaline Phosphatase 53, Total Protein 6.6, Albumin 3.3 L, Globulin 3.3, Albumin/Globulin Ratio 1.00 06/30/16 05:40: Hemoglobin A1c 10.0 H, Triglycerides 214 H, Cholesterol 140, LDL Cholesterol, Calc 59, VLDL Cholesterol 43 H, HDL Cholesterol 38, Cholesterol /HDL Ratio 3.7 L ASSESSMENT: 1. Sciatica, left with radiculopathy. 2. Severe DJD spine status post back surgery 3. CABG status post stents times two 4. Status post back surgery 5. Abnormal EKG. 6. Hypertension. 7. Hyperglycemia could be from steroids. PLAN: 1. Left hip x-ray 2. Valium 2 mg IV now 3. Toradol 30 mg IV 4. Nubain 2 mg IM if needed 5. Again, advised walk-in at the [facility] - will instruct him and we will see how his condition is and depending on that may discharge him. Plan and coordination of the patient's care discussed in the presence of Ophthalmic Technologist and nurse. CONDITION: Stable SCRIBED BY: NINA BAKER Inspector Barrel scribed while in presence of service performed by Dr. AIME MONROE on 07/01/16 ([id number])
--- NOTE | 2016-07-01 11:13 | CT ---
EXAM: CT left hip without contrast HISTORY: Fell a week ago, pain in left hip COMPARISON: CT abdomen pelvis 01/05/2016 TECHNIQUE: CT left hip performed without intravenous contrast. Coronal and sagittal reformatted im ages obtained. FINDINGS: Bone mineralization is normal. No fracture or dislocation. Mild osteoarthritis left hip with joint space narrowing and small osteophyte formation. Left sacroiliac joints intact. Degenera tive change in the spine is incompletely imaged. There is atherosclerosis. Small fat-containing left inguinal hernia. IMPRESSION: 1. No fracture or dislocation. 2. Mild osteoarthritis left hip. 3. Degenerative change in the spine, incompletely imaged. 4. Atherosclerosis
[2016-07-01] MEDS: HUMULIN R SUBCUT PRN ×2 (11:21→17:10)
--- NOTE | 2016-07-01 13:36 | CM.DICTOOL ---
ADMISSION: 06/27/16 10:19 DISCHARGE: 07/01/16 DATE OF SERVICE: 07/01/16 FINAL DIAGNOSIS LEFT SCIATICA WITH RADICULOPATHY SEVERE DJD OF THE SPINE HYPERTENSION HYPERGLYCEMIA (POSSIBLY STERIOD ETIOLOGY) DM, TYPE 2 CAD HYPERTENSION ARTHRITIS RENAL STONES NEVER SMOKER CABG, 2014 BACK SURGERIES X4 LEFT KNEE SURGERY RIGHT SHOULDER SURGERY LAST VITALS Temp Pulse Resp BP Pulse Ox 97.4 F L 79 20 126/85 98 07/01/16 10:00 07/01/16 10:00 07/01/16 10:00 07/01/16 10:00 07/01/16 10:00 ACTIVE MEDICATIONS Acetaminophen/Hydrocodone Bitart ([place] 10-325) 1 tab PO Q8HR [facility] Last Admin: 07/01/16 04:53 Dose: 1 tab Atorvastatin Calcium (Lipitor) 40 mg PO BEDTIME [facility] Last Admin: 06/30/16 21:17 Dose: 40 mg Insulin Glargine (Lantus) 70 unit SUBCUT BID [facility] Last Admin: 07/01/16 08:27 Dose: 70 unit Lisinopril (Zestril) 10 mg/Hydrochlorothiazide (Hydrochlorothiazide) 12.5 mg PO DAILY [facility] Last Admin: 07/01/16 08:26 Dose: 10-12.5 mg Metoprolol Succinate (Toprol Xl) 25 mg PO DAILY [facility] Last Admin: 07/01/16 08:26 Dose: 25 mg Canagliflozin [Invokana] 300 mg PO DAILY [facility] Last Admin: 07/01/16 08:25 Dose: Not Given Pantoprazole Sodium (Protonix) 40 mg PO QDAC [facility] Last Admin: 07/01/16 05:59 Dose: 40 mg Prednisone (Prednisone) 10 mg PO DAILYWM X 5 DAYS [facility] Last Admin: 07/01/16 08:26 Dose: 10 mg Pregabalin (Lyrica) 75 mg PO BID [facility] Last Admin: 07/01/16 08:26 Dose: 75 mg MEDICATIONS TO BE PRESCRIBED AT DISCHARGE ALLERGIES No Known Allergies Allergy (Unverified 05/24/16 17:06) NEW PRESCRIPTIONS: PREDNISONE 10 MG, TAKE ONE TABLET BY MOUTH DAILY FOR 5 DAYS WITH FOOD PROTONIX 30 MG, TAKE ONE TABLET BY MOUTH DAILY WITH A MEAL SMOKING: NONSMOKER DISEASE SPECIFIC EDUCATION: RADICULOPATHY BACK PAIN FOLLOW UP HOME MEDICATIONS NEW PRESCRIPTIONS [facility]TH[facility] REFERRAL PAIN MANAGEMENT REFERRAL LAB REVIEW: 07/01/16 05:12 07/01/16 05:12 07/01/16 05:12: WBC 11.14 H, RBC 4.50 L, Hgb 13.8 L, Hct 41.2 L, MCV 91.6, MCH 30.7, MCHC 33.5, RDW Coeff of [place] 13.6, Plt Count 243, Immature Gran % (Auto) 0.4, Neut % (Auto) 50.8, Lymph % (Auto) 36.7, [place] % (Auto) 8.5, Eos % (Auto) 3.1, Baso % (Auto) 0.5, Immature Gran # (Auto) 0.1, Neut # 5.7, Lymph # 4.1 H, [place] # 1.0, Eos # 0.3, Baso # 0.1, Sodium 141, Potassium 3.6, Chloride 105, Carbon Dioxide 26, Anion Gap 13.6, BUN 30 H, Creatinine 0.98, Estimated GFR ( MDRD) 80.00, BUN/Creatinine Ratio 30.61, Glucose 133 H, Calcium 9.3, Total Bilirubin 0.31, AST 11 L, ALT 15, Alkaline Phosphatase 53, Total Protein 6.6, Albumin 3.3 L, Globulin 3.3, Albumin/Globulin Ratio 1.00 PLAN: DISCHARGE HOME TODAY RETURN TO SEE DR. MONROE IN 7-10 DAYS. PLEASE PHONE HIS OFFICE TO SCHEDULE YOUR FOLLOW UP APPOINTMENT [phone] KEEP YOUR APPOINTMENT AT PAIN MANAGEMENT ON 07/09/16. [facility] [address][phone] RESUME YOUR HOME MEDICATIONS PER LIST PROVIDED BY THE NURSING STAFF NEW PRESCRIPTIONS: PREDNISONE 10 MG, TAKE ONE TABLET BY MOUTH DAILY FOR 5 DAYS WITH FOOD PROTONIX 30 MG, TAKE ONE TABLET BY MOUTH DAILY WITH A MEAL ACTIVITY: REST AT HOME. GRADUALLY INCREASE YOUR ACTIVITY LEVEL ACCORDING TO YOUR TOLERATION DIET: CONSISTENT CARBS SUMMARY: THE PATIENT IS ALERT AND ORIENTED X3. HE CURRENTLY RESIDES AT HOME WITH HIS GIRLFRIEND AND DESIRES TO RETURN THERE AT DISCHARGE. HE HAS BEEN INDEPENDENT WITH [employer]. HE HAS A CANE AVAILABLE FOR USE IF NEEDED BUT SAYS HE HAS NOT NEEDED TO USE IT. HE HAS NO HOME HEALTH OR HOMEMAKING SERVICES CURRENTLY AND WILL NOT REQUIRE THESE SERVICES AT DISCHARGE. HIS SKIN TURGOR IS INTACT AND WITHOUT DECUBITUS ULCERS AT DISCHARGE. HIS HYDRATION STATUS AND APPETITE ARE GOOD. HE IS AWARE AND AGREEABLE FOR DISCHARGE TODAY. AIME MONROE M.D.
[2016-07-01 14:10] VITALS: TEMP 97
[2016-07-01] MEDS: MOBIC PO SCH (16:10)
[2016-07-01] MEDS ORDERED: NORCO 7.5-325 PO STA (16:41)
[2016-07-01 17:41] VITALS: BP 131/60
--- NOTE | 2016-07-02 10:42 | ECHO2D ---
Date of Exam: 07/01/16 Ordering Physician: AIME MONROE Reason for Echo: CAD, HTN, HX CHF, COPD, CABG 2013 M-Mode Normal Adult Results LV Dimensions Normal Adult Results AoV Opening excursions >1.6 >1.6 LVEDD-base- 3.5-5.8 5.2 Ao root dimensions 2.0-3.7 3.2 LVESD-base- 3.1-4.6 L. Atrium dimensions 1.9-3.8 4.3 Post. Wall thickness 0.8-1.1 1.3 IV septum (thickness) 0.7-1.2 1.2 Post. Wall excursion 0.72-1.3 NORMAL Septal motion 0.3 Systolic motion R. Ventricular cavity 1.5-2.0 NORMAL LVEF 60% 40% Paradoxical septal wall motion NORMAL 2-D : HYPOKINETIC SEPTUM, NORMAL VALVES, ENLARGED LEFT ATRIAL CAVITY--NO EFFUSION, NO THROMBUS, NORMAL LEFT VENTRICULAR CONTRACTILITY M-MODE: MV: NORMAL AV: NORMAL TV: NORMAL PV: CHAMBER SIZE: ENLARGED LEFT ATRIAL CAVITY WALL MOTION: HYPOKINETIC SEPTUM PERICARDIUM: NORMAL INTERPRETATION: 1. HYPOKINETIC SEPTUM--LEFT VENTRICULAR EJECTION FRACTION 40% 2. LEFT VENTRICULAR HYPERTROPHY 3. ENLARGED LEFT ATRIAL CAVITY 4. NORMAL VALVES MTDD
--- NOTE | 2016-07-02 15:12 | DS ---
DATE OF SERVICE: 07/01/16 FINAL DIAGNOSIS: 1. Left sciatica with radiculopathy 2. Severe DJD of the spine 3. Hypertension 4. Hyperglycemia (possibly steroid etiology) 5. Diabetes mellitus, type 2 6. Coronary artery disease 7. Hypertension 8. Arthritis 9. Renal stone 10.CABG, 2014 11.Back surgeries x4 12.Left knee surgery 13.Right shoulder surgery LAST VITALS: Temperature 97.4, pulse 79, respiratory 20, blood pressure 126/85 and pulse ox 98%. DISCHARGE INSTRUCTIONS: Discharge home today. Return to see Dr. Murphy in 7-10 days. Keep appointment at Pain management on 07/09/16. Go to [facility]. Resume home medication as per list provided by the nursing staff. MEDICATIONS AT DISCHARGE: [place] 10-325 PO Q 8 hours Lipitor 40mg PO bedtime Lantus 70 units SUBCUT twice a day Zestril 10mg/Hydrochlorothiazide 12.5mg PO daily Toprol XL 25mg Po daily Invokana 300mg Po daily Protonix 40mg PO QDAC Prednisone 10mg Po daily Lyrica 75mg PO twice a day ALLERGIES: No known allergies NEW PRESCRIPTIONS: Prednisone 10mg take one tablet by mouth daily for five days with food Protonix 30mg take one tablet by mouth daily with a meal DIET INSTRUCTIONS: Consistent Carbohydrates. ACTIVITY: Rest at home. Gradually increase your activity level according to toleration. SMOKING: Non-smoker DISEASE SPECIFIC EDUCATION: Radiculopathy Back pain Followup Home medications New Prescriptions Ortho referral Pain management referral LABS: Hgb 13.8, hct 41, WBC 11,000 normal differential, creatinine 0.9, BUN 30, potassium 3.6, glucose 133. The patient's cholesterol was 140 with triglycerides dropped to 14. T4 TSH were negative. His A1c is more than 9. Adjustment of his medications will be made as an outpatient. HOSPITAL COURSE: The patient is a 50 year old white male hospitalized with severe left sciatica. The patient's pain was rated at 8-9 or even 10 out of 10 on 1-10 scale on admission. The patient's pain is still fluctuating. The patient is up and about going to the bathroom and still has pain rated from 2-6. The patient had muscle spasm the morning of discharge which was taken care by Marylou. The patient has been on narcotic also the patient has been waiting for his appointment at [facility] at Dr. Hagen but in the mean time the MRI showed that his DJD of the spine is creating neural foramen narrowing with spinal stenosis and he needs to see Neurosurgeon for which he has agreed. The patient could walk in. The patient was explained about this [facility] in [place]. The patient says that the doesn't have transportation so he is going to go whenever he could get transportation to [facility]. If the patient goes to [facility] he will be taken care of immediately and be able to get help in a way of seeing Neurosurgeons along with possibility of pain management. The patient's BMI is 36 and he is advised to lose weight. Counseling for that was done. Back exercises were also discussed with the patient. The patient has history of coronary bypass surgery and EKG showing inferior wall TN. Echocardiogram was done which revealed hypokinetic septal wall motion with LV ejection fraction of 40% with enlarged LA cavity. The patient's cardiovascular status is stable. Condition at the time of discharge is stable. CONDITION: Stable. TIME SPENT: More than 60 minutes. MTDD
== END 2016-07-01 18:55 | disposition home or self-care (01) | DRG 552 ==
LOC: MEDSURG B 10:19
PROVIDERS: ADMIT Internal Medicine; ATTEND Internal Medicine
DX: M47.26 Other spondylosis with radiculopathy, lumbar region (principal); M54.42 Lumbago with sciatica, left side; M48.06 Spinal stenosis, lumbar region; I51.7 Cardiomegaly; R94.39 Abnormal result of other cardiovascular function study; I10 Essential (primary) hypertension; E11.9 Type 2 diabetes mellitus without complications; R73.9 Hyperglycemia, unspecified; I25.10 Atherosclerotic heart disease of native coronary artery without angina pectoris; M19.90 Unspecified osteoarthritis, unspecified site; F17.220 Nicotine dependence, chewing tobacco, uncomplicated; I25.2 Old myocardial infarction; Z98.890 Other specified postprocedural states; Z95.1 Presence of aortocoronary bypass graft; Z79.4 Long term (current) use of insulin; Z79.899 Other long term (current) drug therapy
CPT/HCPCS: 36415; 80053; 80061; 82962; 83036; 84439; 84443; 85025; 93005; 93010

== ENCOUNTER 2016-07-21 17:28 | Emergency (ER) ==
[2016-07-21 17:30] VITALS: BP 107/73; TEMP 99.4; BMI 34.9
[2016-07-21] MEDS ORDERED: PHENERGAN 25 MG/ML VIAL IM STA (18:41)
[2016-07-21] MEDS ORDERED: DILAUDID 2 MG/ML SYRINGE IM STA (18:41)
--- NOTE | 2016-07-21 18:44 | ED.PDOC ---
General ED Provider: Dr. CAYETANO BOWLING-ER Chief Complaint: Back Pain Stated Complaint: my back hurts--im scheduled to see dr tee this week Time Seen by Physician: 17:30 Mode of Arrival: Wheelchair Information Source: Patient Exam Limitations: No limitations Primary Care Provider: AIME MONROE Nursing and Triage Documentation Reviewed and Agree: Yes Musculoskeletal Complaint Exam - Back Pain Complaint/Exam Mechanism of Injury: Reports: No known trauma Onset/Duration: several weeks Symptoms Are: Still present Timing: Constant Episodes Lasting: Weeks Initial Severity: Moderate Location: Reports: Discrete Character: Reports: Spasmodic, Stiffness Aggravating: Reports: Movements, Lifting, Bending, Walking Alleviating: Reports: None Associated Signs and Symptoms: Denies: Swelling, Redness, Bruising, Fever, Weakness, Numbness, Tingling, Abdominal pain, Flank pain, Bladder incontinence, Bowel incontinence, Weight loss, Pain with weight bearing TAD Risk Factors: Reports: None AAA Risk Factors: Reports: None Cauda Equina Risk Factors: Reports: None Epidural Abcess Risk Factors: Reports: None Related Surgical History: Reports: None Focal Tenderness: Yes Paraspinal Muscle Tenderness: Yes Paraspinal Muscle Spasm: No Scoliosis: No Lordosis: No Kyphosis: No SLR Test: Right Negative, Left Negative Hip Motion Testing Pain: Right Negative, Left Negative Focal Weakness: Present: None Focal Sensory Loss: Present: None Gait: Present: Abnormal Differential Diagnoses: Strain, Sprain Review of Systems - Review Of Systems Constitutional: Reports: No symptoms Eyes: Reports: No symptoms Ears, Nose, Mouth, Throat: Reports: No symptoms Respiratory: Reports: No symptoms Cardiac: Reports: No symptoms GI: Reports: No symptoms : Reports: No symptoms Musculoskeletal: Reports: Back pain Skin: Reports: No symptoms Neurological: Reports: No symptoms Endocrine: Reports: No symptoms Hematologic/Lymphatic: Reports: No symptoms All Other Systems: Reviewed and Negative Past Medical History - Past Medical History Previously Healthy: Yes Endocrine: Reports: DM 2 Cardiovascular: Reports: CAD Respiratory: Reports: None Hematological: Reports: None Gastrointestinal: Reports: None Genitourinary: Reports: Kidney stones Neuro/Psych: Reports: None Musculoskeletal: Reports: Arthritis Cancer: Reports: None - Surgical History General Surgical History: Reports: CABG (2014), Back Surgery (left knee surgery , right shoulder, back surgery x 4) - Family History Family History: Reports: Unknown - Social History Smoking Status: Former smoker Hx Substance Use: No Alcohol Screening: None Lives: With family Physical Exam - Physical Exam Appearance: Well-appearing, No pain distress, Well-nourished Pain Distress: Moderate Eyes: MOUNA ENT: Ears normal, Nose normal, Oropharynx normal Neck: Supple Respiratory: Airway patent, Breath sounds clear, Breath sounds equal, Respirations nonlabored Cardiovascular: RRR, Pulses normal, No rub, No murmur GI/: Soft Musculoskeletal: Limited ROM Skin: Warm, Dry, Normal color Neurological: Sensation intact, Motor intact, Reflexes intact, Cranial nerves intact, Alert, Oriented Psychiatric: Affect appropriate Re-Evaluation - Re-Evaluation Time of Re-Evaluation: 18:43 Status: Improved Critical Care Note - Critical Care Note Total Time (mins): 0 Course - Course Orders, Labs, Meds: Orders Category Date Time Status Hydromorphone HCl/Pf [Dilaudid 2 mg/ml Syringe] MEDS 07/21/16 18:41 Discontinued 2 mg IM ONCE STA Promethazine HCl [Phenergan 25 mg/ml Vial] MEDS 07/21/16 18:41 Discontinued 25 mg IM ONCE STA Medications Discontinued Medications Generic Name Dose Route Start Last Admin Trade Name Freq PRN Reason Stop Dose Admin Hydromorphone HCl 2 mg 07/21/16 18:41 Dilaudid 2 Mg/Ml Syringe IM 07/21/16 18:42 ONCE STA Promethazine HCl 25 mg 07/21/16 18:41 Phenergan 25 Mg/Ml Vial IM 07/21/16 18:42 ONCE STA Vital Signs: Temp Pulse Resp BP Pulse Ox 07/21/16 17:28 99.4 F 77 22 107/73 96 Departure - Departure Time of Disposition: 18:44 Disposition: HOME SELF-CARE Discharge Problem: Low back pain Qualifiers: Chronicity: unspecified Back pain laterality: unspecified Sciatica presence: with sciatica Sciatica laterality: sciatica laterality unspecified Qualifier Code: (M54.40) Lumbago with sciatica, unspecified side Instructions: Lumbar Radiculopathy (ED) Condition: Good Pt referred to PMD for follow-up: Yes Additional Instructions: keep appt with back specialist Allergies/Adverse Reactions: Allergies No Known Allergies Allergy (Verified 07/21/16 17:30) Home Medications: Ambulatory Orders Atorvastatin Calcium [Lipitor] 40 mg PO BEDTIME 05/24/16 Lisinopril/Hydrochlorothiazide [Lisinopril-Hctz 10-12.5 mg Tab] 1 each PO DAILY 05/24/16 Canagliflozin [Invokana] 300 mg PO DAILY 06/23/16 Insulin Glargine,Hum.rec.anlog [Lantus Solostar] 70 unit SQ BID 06/23/16 Insulin Lispro [Humalog] 10 unit SUBCUT TIDWM PRN 06/23/16 Diazepam [Valium] 2 mg PO DAILY 06/27/16 Pregabalin [Lyrica] 75 mg PO BID 06/27/16 Pantoprazole Sodium [Protonix] 40 mg PO QDAC #30 tablet. 07/01/16 Disposition Discussed With: Patient, Family
== END 2016-07-21 19:05 | disposition home or self-care (01) ==
LOC: ED 17:28
DX: M54.40 Lumbago with sciatica, unspecified side (principal)
CPT/HCPCS: 96372; 99282

== ENCOUNTER 2016-09-24 15:24 | Observation (INO) | payer OTHER ==
[2016-09-24 16:15] LABS: BASOPHILS # (AUTO) 0.1 K/uL (0-0.2); BASOPHILS % (AUTO) 0.4 % (0.0-3.0); EOSINOPHILS # (AUTO) 0.3 K/ul (0.0-0.7); EOSINOPHILS % (AUTO) 2.2 % (0.0-7.0); HEMATOCRIT 43.9 % (42.0-52.0); HEMOGLOBIN 15.7 g/dl (14.0-18.0); IMMATURE GRANULOCYTE % (AUTO) 0.4 % (0.0-5.0); LYMPHOCYTES # (AUTO) 2.5 K/uL (0.60-3.4); LYMPHOCYTES % (AUTO) 18.9 (10.0-50.0); MEAN CORPUSCULAR HEMOGLOBIN 31.2 pg (27.0-31.0); MEAN CORPUSCULAR HGB CONC 35.8 (31.8-35.4); MEAN CORPUSCULAR VOLUME 87.1 fl (80.0-94.0); MONOCYTES # (AUTO) 0.8 K/uL (0.4-2.0); MONOCYTES % (AUTO) 5.6 (0-10); NEUTROPHILS # (AUTO) 9.8 K/ul (2.0-6.9); NEUTROPHILS % (AUTO) 72.5; PLATELET COUNT 311 10^3/uL (140-440); RED BLOOD COUNT 5.04 10^6/ul (4.70-6.10); WHITE BLOOD COUNT 13.47 K/ul (4.2-10.2)
[2016-09-24 16:50] LABS: ALANINE AMINOTRANSFERASE 24 U/L (12-78); ALBUMIN 3.7 g/dL (3.4-5.0); ALBUMIN/GLOBULIN RATIO 0.93; ALKALINE PHOSPHATASE 68 U/L (50-136); AMYLASE 18 U/L (25-115); ANION GAP 21.7; ASPARTATE AMINO TRANSFERASE 17 U/L (15-37); BILIRUBIN,TOTAL 0.32 mg/dL (0.00-1.20); BLOOD UREA NITROGEN 14 mg/dL (7-18); BUN/CREATININE RATIO 14.14; CALCIUM 8.8 mg/dL (8.2-10.2); CARBON DIOXIDE 17 mmol/L (21-32); CHLORIDE 101 mmol/L (98-107); CREATINE KINASE 62 U/L; CREATININE 0.99 mg/dL (0.60-1.10); GLUCOSE 283 mg/dL (70-100); LIPASE 10 U/L (8-78); POTASSIUM 3.7 mmol/L (3.5-5.1); SODIUM 136 mmol/L (136-145); TOTAL PROTEIN 7.7 g/dL (6.4-8.2)
--- NOTE | 2016-09-24 16:50 | CT ---
EXAM: CT ABDOMEN AND PELVIS HISTORY: Abdominal pain, nausea and vomiting TECHNIQUE: CT abdomen and pelvis without intravenous contrast. Images were reconstructed using 5 m m section thickness. Reformations were prepared. COMPARISON: 01/05/2016 FINDINGS: Diagnostic limitations exist without including contrast enhanced images. No focal hepatic or spleni c lesions. Gallbladder, pancreas and adrenal glands are within normal limits. There is no hydronep hrosis or definite nephrolithiasis. Ureters are clear. Minimal atherosclerotic disease. Stomach is unremarkable. Normal appendix. Mild distension of the rectum with retained fecal matter. Otherwise no excessive retention is identified and the bowel gas pattern is normal. Urinary bladd er and prostate appear normal. There is no ascites or inflammatory infiltration of the abdominal fa t. Abdominal wall is intact. The bones reveal moderate degenerative disc and facet disease of the lowe r lumbar spine and lumbosacral junction as well as the sacroiliac joints. Bilateral mild to moderat e hip osteoarthritis. Lung bases are clear. No pneumoperitoneum. IMPRESSION: 1. Slight excess fecal retention within the rectum. Consider constipation. Normal bowel gas patte rn. 2. Minimal atherosclerosis. 3. Arthritic changes.
[2016-09-24 17:11] LABS: BILIRUBIN,URINE Negative (NEGATIVE); KETONES,URINE 1+ (NEGATIVE); LEUKOCYTE ESTERASE ,URINE Negative (NEGATIVE); NITRITE,URINE Negative (NEGATIVE); PH,URINE 5.5 (5-9); PROTEIN,URINE Negative (NEGATIVE); URINE, BLOOD Negative (NEGATIVE)
[2016-09-24 17:12] LABS: ADD URINE MICROSCOPIC NO
--- NOTE | 2016-09-24 17:28 | ED.PDOC ---
General ED Provider: Dr. BERNA ENAMORADO Chief Complaint: Abdominal Pain Stated Complaint: abdominal pain/constipation Time Seen by Physician: 15:25 (see with staff had stent place 4 days ago) Information Source: Patient Exam Limitations: No limitations Primary Care Provider: AIME MONROE Nursing and Triage Documentation Reviewed and Agree: Yes (pmd notified ) GI Complaint Exam - Abdominal Pain Complaint/Exam Onset: Gradual Duration: 2 days ago Symptoms Are: Still present Timing: Intermittent Initial Severity: Moderate Current Severity: Moderate Location of Pain: Diffuse Character: Reports: Aching Aggravating: Reports: None Alleviating: Reports: None Associated Signs and Symptoms: Denies: Diaphoresis, Fever, Cough, Chest pain, Dizziness, Back pain, Constipation, Blood in stool, Dysuria, Urinary frequency, Decreased urine output, Decreased appetite, Discharge, Nausea, Vomiting, Diarrhea, Decreased activity Related History: Reports: Similar episode AAA Risk Factors: Reports: None Cardiac Risk Factors: Reports: DM, CAD Testicular Torsion Risk Factors: Reports: None Surgical Obstruction Risk Factors: Reports: None Related Surgical History: Reports: None Abdominal Findings: Present: None Differential Diagnoses: Appendicitis, Bowel Obstruction, Constipation, Diverticulitis, Gastroenteritis, Pancreatitis Review of Systems - Review Of Systems Constitutional: Reports: No symptoms Eyes: Reports: No symptoms Ears, Nose, Mouth, Throat: Reports: No symptoms Respiratory: Reports: No symptoms Cardiac: Reports: No symptoms GI: Reports: Abdominal pain : Reports: No symptoms Musculoskeletal: Reports: No symptoms Skin: Reports: No symptoms Neurological: Reports: No symptoms Endocrine: Reports: No symptoms Hematologic/Lymphatic: Reports: No symptoms All Other Systems: Reviewed and Negative Past Medical History - Past Medical History Previously Healthy: Yes Endocrine: Reports: DM 2 Cardiovascular: Reports: CAD Respiratory: Reports: None Hematological: Reports: None Gastrointestinal: Reports: None Genitourinary: Reports: Kidney stones Neuro/Psych: Reports: None Musculoskeletal: Reports: Arthritis Cancer: Reports: None - Surgical History General Surgical History: Reports: CABG (2014), Back Surgery (left knee surgery , right shoulder, back surgery x 4) - Family History Family History: Reports: Unknown - Social History Smoking Status: Former smoker Hx Substance Use: No Alcohol Screening: None Physical Exam - Physical Exam Appearance: Well-appearing, No pain distress, Well-nourished Eyes: MOUNA, EOMI, Conjunctiva clear ENT: Ears normal, Nose normal, Oropharynx normal Respiratory: Airway patent, Breath sounds clear, Breath sounds equal, Respirations nonlabored Cardiovascular: RRR, Pulses normal, No rub, No murmur GI/: Soft, Nontender, No masses, Bowel sounds normal, No Organomegaly Musculoskeletal: Normal strength, ROM intact, No edema, No calf tenderness Skin: Warm, Dry, Normal color Neurological: Sensation intact, Motor intact, Reflexes intact, Cranial nerves intact, Alert, Oriented Psychiatric: Affect appropriate, Mood appropriate Interpretation - Radiology Interpretation Radiology Interpretation By: Radiologist Radiology Results: No acute changes Physician Notification - Case Discussed Physician Notified: pmd Time of Notification: 17:29 Critical Care Note - Critical Care Note Total Time (mins): 0 Course - Course Hematology/Chemistry: 09/24/16 15:50 09/24/16 15:50 Orders, Labs, Meds: Lab Review 09/24/16 09/24/16 15:50 17:05 WBC 13.47 H RBC 5.04 Hgb 15.7 Hct 43.9 MCV 87.1 MCH 31.2 H MCHC 35.8 H RDW Coeff of Maritza 13.1 Plt Count 311 Immature Gran % (Auto) 0.4 Neut % (Auto) 72.5 Lymph % (Auto) 18.9 Kaufman % (Auto) 5.6 Eos % (Auto) 2.2 Baso % (Auto) 0.4 Immature Gran # (Auto) 0.1 Neut # 9.8 H Lymph # 2.5 Kaufman # 0.8 Eos # 0.3 Baso # 0.1 Sodium 136 Potassium 3.7 Chloride 101 Carbon Dioxide 17 L Anion Gap 21.7 BUN 14 Creatinine 0.99 Estimated GFR (MDRD) 79.00 BUN/Creatinine Ratio 14.14 Glucose 283 H Calcium 8.8 Total Bilirubin 0.32 AST 17 ALT 24 Alkaline Phosphatase 68 Total Creatine Kinase 62 Troponin I < 0.0100 Total Protein 7.7 Albumin 3.7 Globulin 4.0 Albumin/Globulin Ratio 0.93 Amylase 18 L Lipase 10 Urine Color Yellow Urine Clarity Clear Urine pH 5.5 Ur Specific [place] 1.010 Urine Protein Negative Urine Glucose (UA) 2+ Urine Ketones 1+ Urine Blood Negative Urine Nitrite Negative Urine Bilirubin Negative Urine Urobilinogen 0.2 Ur Leukocyte Esterase Negative Orders Category Date Time Status EKG-(ED ONLY) Stat CARDIO 09/24/16 16:01 Completed AMYLASE Stat LAB 09/24/16 15:50 Completed CBC W/ AUTO DIFF Stat LAB 09/24/16 15:50 Completed COMPREHENSIVE METABOLIC PANEL Stat LAB 09/24/16 15:50 Completed CREATINE KINASE Stat LAB 09/24/16 15:50 Completed LIPASE Stat LAB 09/24/16 15:50 Completed TROPONIN I Stat LAB 09/24/16 15:50 Completed URINALYSIS C & S IF INDICATED Stat LAB 09/24/16 17:[address] ABDOMEN/PELVIS WO CONTRAST Stat RADS 09/24/16 16:01 Completed Vital Signs: Temp Pulse Resp BP Pulse Ox 09/24/16 15:25 97.7 F 84 20 117/77 96 Departure - Departure Time of Disposition: 17:30 (admiited after discussion with PMD ) Disposition: PLACED OBSERVATION Discharge Problem: Abdominal pain Instructions: Abdominal Pain (ED) Condition: Good Pt referred to PMD for follow-up: Yes Allergies/Adverse Reactions: Allergies No Known Allergies Allergy (Verified 09/24/16 15:31) Home Medications: Ambulatory Orders Atorvastatin Calcium [Lipitor] 40 mg PO BEDTIME 05/24/16 Lisinopril/Hydrochlorothiazide [Lisinopril-Hctz 10-12.5 mg Tab] 1 each PO DAILY 05/24/16 Canagliflozin [Invokana] 300 mg PO DAILY 06/23/16 Insulin Glargine,Hum.rec.anlog [Lantus Solostar] 70 unit SQ BID 06/23/16 Insulin Lispro [Humalog] 10 unit SUBCUT TIDWM PRN 06/23/16 Diazepam [Valium] 2 mg PO DAILY 06/27/16 Pregabalin [Lyrica] 75 mg PO BID 06/27/16 Pantoprazole Sodium [Protonix] 40 mg PO QDAC #30 tablet. 07/01/16 Ticagrelor [Brilinta] 90 mg PO BID 09/24/16
[2016-09-24] MEDS ORDERED: CITRATE OF MAGNESIA PO STA (17:34)
[2016-09-24] MEDS ORDERED: HUMULIN R SUBCUT STA (17:37)
[2016-09-24] MEDS ORDERED: SODIUM CHLORIDE 1,000 ML IV SCH (18:00)
[2016-09-24 19:49] VITALS: BMI 34.4
[2016-09-24] MEDS ORDERED: VALIUM ONE (20:17)
[2016-09-24] MEDS ORDERED: NORCO 10-325 ONE (20:17)
[2016-09-24] MEDS ORDERED: LIPITOR ONE (20:17)
[2016-09-24] MEDS ORDERED: BRILINTA ONE (20:18)
[2016-09-24] MEDS ORDERED: NON-FORMULARY MEDICATION (Atorvastatin Calcium [Lipitor] 40 MG) PO SCH ×22 (21:00)
[2016-09-24] MEDS ORDERED: INSULIN GLARGINE HUM REC ANLOG 75 UNIT SQ SCH (21:00)
[2016-09-24] MEDS ORDERED: BRILINTA PO SCH (21:00)
[2016-09-24] MEDS ORDERED: NORCO 5-325 PO SCH (21:00)
[2016-09-24] MEDS ORDERED: VALIUM PO SCH (21:00)
[2016-09-24] MEDS ORDERED: NORCO 10-325 PO SCH (21:00)
[2016-09-24] MEDS ORDERED: PROTONIX PO STA (21:20)
[2016-09-24] MEDS ORDERED: GI COCKTAIL PO STA (21:21)
[2016-09-24] MEDS ORDERED: NEURONTIN PO SCH (21:30)
[2016-09-24] MEDS ORDERED: PROTONIX ONE (21:34)
[2016-09-25] MEDS ORDERED: HUMALOG SUBCUT PRN (01:25)
[2016-09-25 04:49] LABS: BASOPHILS # (AUTO) 0.1 K/uL (0-0.2); BASOPHILS % (AUTO) 0.7 % (0.0-3.0); EOSINOPHILS # (AUTO) 0.4 K/ul (0.0-0.7); EOSINOPHILS % (AUTO) 3.2 % (0.0-7.0); HEMATOCRIT 43.6 % (42.0-52.0); HEMOGLOBIN 14.7 g/dl (14.0-18.0); IMMATURE GRANULOCYTE % (AUTO) 0.3 % (0.0-5.0); LYMPHOCYTES # (AUTO) 3.3 K/uL (0.60-3.4); LYMPHOCYTES % (AUTO) 27.5 (10.0-50.0); MEAN CORPUSCULAR HGB CONC 33.7 (31.8-35.4); MONOCYTES # (AUTO) 0.9 K/uL (0.4-2.0); MONOCYTES % (AUTO) 7.2 (0-10); NEUTROPHILS # (AUTO) 7.3 K/ul (2.0-6.9); NEUTROPHILS % (AUTO) 61.1; PLATELET COUNT 288 10^3/uL (140-440); WHITE BLOOD COUNT 11.88 K/ul (4.2-10.2)
[2016-09-25 05:17] LABS: ALBUMIN 3.6 g/dL (3.4-5.0); ALBUMIN/GLOBULIN RATIO 0.95; ANION GAP 22.1; BILIRUBIN,TOTAL 0.29 mg/dL (0.00-1.20); BUN/CREATININE RATIO 17.34; CALCIUM 9.1 mg/dL (8.2-10.2); CREATININE 0.98 mg/dL (0.60-1.10); POTASSIUM 4.1 mmol/L (3.5-5.1); TOTAL PROTEIN 7.4 g/dL (6.4-8.2)
[2016-09-25 05:24] VITALS: TEMP 97.8
[2016-09-25] MEDS ORDERED: PROTONIX ONE (05:58)
[2016-09-25] MEDS ORDERED: PROTONIX PO SCH (06:30)
[2016-09-25] MEDS ORDERED: ASPIRIN EC PO SCH (08:00)
[2016-09-25] MEDS ORDERED: VALIUM PO SCH ×2 (09:00→21:00)
[2016-09-25] MEDS ORDERED: NON-FORMULARY MEDICATION (Canagliflozin [Invokana] 300 MG) PO SCH (09:00)
[2016-09-25] MEDS ORDERED: TOPROL XL PO SCH (09:00)
[2016-09-25] MEDS ORDERED: INSULIN GLARGINE HUM REC ANLOG 75 UNIT SQ SCH (09:00)
[2016-09-25] MEDS ORDERED: BRILINTA PO SCH (09:00)
[2016-09-25 09:57] VITALS: BP 111/76
--- NOTE | 2016-09-25 10:19 | HP ---
DATE OF SERVICE: 09/24/16 REASON FOR HOSPITALIZATION: Abdominal pain HISTORY OF PRESENT ILLNESS: The patient is a 50 year old white male called the office because he has abdominal pain with reflux type of symptoms. We advised him to go the emergency room because the patient just had a stent placement four days ago at [facility] by Dr. Tirado. REVIEW OF SYSTEMS: CONSTITUTIONAL: No night sweats. Mild fatigue, malaise, lethargy. No fever or chills. HEENT: Eyes: No visual changes. No eye pain. No eye discharge. ENT: No runny nose. No epistaxis. No sinus pain. No sore throat. No odynophagia. No ear pain. No congestion. RESPIRATORY: No cough, no congestion. No hemoptysis. CARDIOVASCULAR: No angina symptoms. No CHF symptoms. No atypical chest pain for CAD. No palpitations. No shortness of breath. Reflux type of symptoms with heartburns with epigastric pain. No PND. No orthopnea. GASTROINTESTINAL: No abdominal pain. No nausea or vomiting. No diarrhea or constipation. No hematemesis. No hematochezia. GENITOURINARY: No urgency. No frequency. No dysuria. No hematuria. No obstructive symptoms. No discharge. No pain. No significant abnormal bleeding. MUSCULOSKELETAL: No musculoskeletal pain. No joint swelling. No arthritis. NEUROLOGICAL: No headache. No neck pain. No syncope. No seizures. No dizziness. PSYCHIATRIC: Not anxious. No depression. No suicidal thoughts. No homicidal thoughts. SKIN: No rash. No lesions. No wounds. ENDOCRINE: No unexplained weight loss. No weight gain. HEMATOLOGIC/LYMPHATIC: No anemia. No purpura. No petechiae. No prolonged or excessive bleeding. No palpable lymph nodes. PERSONAL/FAMILY/SOCIAL HISTORY: The patient is a former smoker. He does all activity of daily living with no alcohol abuse. PAST MEDICAL/SURGICAL PROBLEMS: Coronary bypass surgery, 2013; stent in March 2016 and stent put in he same bypass graft by [facility] just four days ago. Status post back surgery x4 Left knee surgery Right shoulder MEDICATIONS: Atorvastatin 40mg PO daily Lisinopril/ Hydrochlorothiazide 10-12.5mg daily Invokana 300mg PO daily Insulin Glargine, Lantus Solostar 70 SUBCUT twice a day Humalog 10 units SUBCUT three times a day Valium 2mg PO daily Lyrica 75mg twice a day Pantoprazole 40mg PO QAM Brilinta 90mg PO twice a day ALLERGIES: No known allergies PHYSICAL EXAMINATION: GENERAL: The patient is oriented to time, place and person. VITAL SIGNS: Temperature 97.7, pulse 84, respiratory rate 20, blood pressure 117/77 and pulse ox 96%. HEENT: Head normocephalic, atraumatic. Eyes: Extraocular muscles are intact. Pupils are equal, round and reactive to light and accommodation. Ears: No lesions. Nose appeared normal. Throat: No exudate or erythema. NECK: Supple. No JVP, no carotid bruit. No lymphadenopathy or thyromegaly. LUNGS: Decreased breath sounds but clear to auscultation. Percussion note normal. Chest symmetrical. HEART: S1, S2, no S3. No murmurs. No cyanosis or clubbing. No ascites. Pulses: Dorsalis pedis and posterior tibial pulses +1 bilaterally. No pericardial rub. ABDOMEN: Soft. Nontender. Bowel sounds active. No CVA tenderness. No mass felt. EXTREMITIES: No edema. Full range of motion of all extremities, equal. NEUROLOGIC: No focal deficit. Cranial nerves II through XII are grossly intact. No headache, no double vision or headache. SKIN: Not dry. Intact. Turgor - normal. LYMPHATIC: No palpable lymph nodes/no lymphedema. MUSCULOSKELETAL: Normal joints with no swelling. Muscle tone is normal. LABS: WBC 13,000 normal differential, hgb 15, creatinine 0.9, BUN 14, liver profile is negative, cardiac markers are negative. UA showed 2+ glucose, negative for protein. ASSESSMENT: 1. Reflux symptoms 2. Abdominal pain, likely combination of reflux and constipation. CT scan shows excess of retention within rectum. 3. Coronary bypass surgery, 2014 followed by two stents last one four days ago 4. Obesity 5. Dyslipidemia 6. Hypertension 7. Diabetes Mellitus 8. Left knee surgery 9. Right shoulder surgery 10.Back surgery x4 PLAN: 1. Bottle of Magnesium Citrate 2. Fluid enema if needed 3. Monitor telemetry 4. EKG showed sinus rhythm, inferior wall CT and no acute changes 5. Cardiac Markers are negative CONDITION: Stable TIME SPENT: More than 70 minutes. [facility]
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
--- NOTE | 2016-09-25 11:52 | PCM.PROG ---
Attending Provider: ATTENDING PROVIDER: Dr. AIME MONROE DATE OF SERVICE: 09/25/16 - ADMITTING NOTE SUBJECTIVE: This 50 year old WHITE/ M was hospitalized 09/24/16. The patient is seen with Audra, Nurse Practitioner. The patient is lying in bed alert. The patient was admitted for fecal retention. He had large bowel movement last night and is feeling better today. Appetite is good. No abdominal pain. REVIEW OF SYSTEMS: CONSTITUTIONAL: No night sweats. No fatigue, malaise, lethargy. No fever or chills. HEENT: Eyes: No visual changes. No eye pain. No eye discharge. ENT: No runny nose. No epistaxis. No sinus pain. No odynophagia. No congestion. RESPIRATORY: No cough, no congestion. No hemoptysis. CARDIOVASCULAR: No angina symptoms. No CHF symptoms. No atypical chest pain for CAD. No palpitations. No shortness of breath. GASTROINTESTINAL: No abdominal pain. No nausea or vomiting. No diarrhea or constipation. No hematemesis. No hematochezia. GENITOURINARY: No urgency. No frequency. No dysuria. No hematuria. No obstructive symptoms. No discharge. No pain. No significant abnormal bleeding. MUSCULOSKELETAL: No musculoskeletal pain; no joint swelling. NEUROLOGICAL: Awake, alert, oriented to time, place and person. No headache. No neck pain. No syncope. No seizures. No dizziness. PSYCHIATRIC: Not anxious. No depression. No suicidal thoughts. No homicidal thoughts. SKIN: No rash. No lesions. No wounds. ENDOCRINE: No unexplained weight loss. No weight gain. HEMATOLOGIC/LYMPHATIC: No anemia. No purpura. No petechiae. No prolonged or excessive bleeding. No palpable lymph nodes. PHYSICAL EXAMINATION: GENERAL: The patient is awake, alert and oriented, lying in bed in no distress. VITAL SIGNS: Temperature 97.8 F, Pulse 73, Respiratory Rate 20, BP 107/71, Pulse Ox 98% HEENT: Head normocephalic, atraumatic. Eyes: Extraocular muscles are intact. Pupils are equal, round and reactive to light and accommodation. Ears: No lesions. Nose appeared normal. Throat: No exudate or erythema. NECK: Supple. No JVD, no carotid bruit. No lymphadenopathy or thyromegaly. LUNGS: Clear to auscultation and equally diminished. Percussion note normal. Chest symmetrical. HEART: S1, S2, no S3. No murmurs. No cyanosis or clubbing. No ascites. Pulses: Dorsalis pedis and posterior tibial pulses +1 to +2 both sides. ABDOMEN: Soft. Non-tender. Bowel sounds active. No CVA tenderness. No mass felt. EXTREMITIES: No edema. Full range of motion of all extremities, equal. NEUROLOGIC: No focal deficit. Cranial nerves II through XII are grossly intact. No headache, no double vision or headache. SKIN: Not dry. Intact. Turgor-normal. LYMPHATIC: No palpable lymph nodes/no lymphedema. MUSCULOSKELETAL: Normal joints with no swelling. Muscle tone is normal. LAB REVIEW: 09/25/16 04:15 09/25/16 04:15 09/25/16 04:15: WBC 11.88 H, RBC 4.90, Hgb 14.7, Hct 43.6, MCV 89.0, MCH 30.0, MCHC 33.7, RDW Coeff of Maritza 13.1, Plt Count 288, Immature Gran % (Auto) 0.3, Neut % (Auto) 61.1, Lymph % (Auto) 27.5, [place] % (Auto) 7.2, Eos % (Auto) 3.2, Baso % (Auto) 0.7, Immature Gran # (Auto) 0.0, Neut # 7.3 H, Lymph # 3.3, [place] # 0.9, Eos # 0.4, Baso # 0.1, Sodium 138, Potassium 4.1, Chloride 100, Carbon Dioxide 20 L, Anion Gap 22.1, BUN 17, Creatinine 0.98, Estimated GFR (MDRD) 80.00, BUN/Creatinine Ratio 17.34, Glucose 166 H D, Calcium 9.1, Total Bilirubin 0.29, AST 13 L, ALT 21, Alkaline Phosphatase 68, Total Protein 7.4, Albumin 3.6, Globulin 3.8, Albumin/Globulin Ratio 0.95 ASSESSMENT: 1. Fecal retention 2. Abdominal pain, resolved 3. Neuropathy 4. CAD with stents 09/21/16 PLAN: 1. Discharge home 2. Colace 100 mg at h.s. 3. Discontinue Lyrica 4. Start Neurontin 300 mg b.i.d. Plan and coordination of the patient's care discussed in the presence of Payroll Master and nurse. EDUCATION: Discussed with the patient constipation with opiate use. The side effects of Neurontin discussed. CONDITION: Stable SCRIBED BY: NINA BAKER Senior Manager [employer] scribed while in presence of service performed by Dr. AIME MONROE/AUDRA SINGH APRN on 09/25/16 ([id number])
[2016-09-25] MEDS ORDERED: NORCO 10-325 PO SCH (21:00)
[2016-09-25] MEDS ORDERED: NON-FORMULARY MEDICATION (Atorvastatin Calcium [Lipitor] 40 MG) PO SCH ×22 (21:00)
[2016-09-26] MEDS ORDERED: PROTONIX PO SCH (06:30)
== END 2016-09-25 10:40 | disposition home or self-care (01) ==
LOC: ED 15:24 → MEDSURG B 17:52
PROVIDERS: ADMIT Internal Medicine; ATTEND Internal Medicine
DX: K59.00 Constipation, unspecified (principal); R10.13 Epigastric pain; I10 Essential (primary) hypertension; E11.9 Type 2 diabetes mellitus without complications; I25.10 Atherosclerotic heart disease of native coronary artery without angina pectoris; E78.5 Hyperlipidemia, unspecified; G62.9 Polyneuropathy, unspecified; Z95.5 Presence of coronary angioplasty implant and graft; Z68.35 Body mass index [BMI] 35.0-35.9, adult; Z79.4 Long term (current) use of insulin; Z79.899 Other long term (current) drug therapy; Z87.891 Personal history of nicotine dependence; Z98.890 Other specified postprocedural states
CPT/HCPCS: 36415; 80053; 81001; 82150; 82550; 82962; 83690; 84484; 85025; 87081; 93005; 93010; 99284

== ENCOUNTER 2016-10-07 16:38 | Emergency (ER) | payer OTHER ==
[2016-10-07 16:47] VITALS: BP 153/96; TEMP 97.6; BMI 34.2
[2016-10-07] MEDS ORDERED: MORPHINE 4 MG/ML SYRINGE IM STA (17:13)
[2016-10-07] MEDS ORDERED: ZOFRAN 4 MG/2 ML IM STA (17:13)
[2016-10-07 17:31] LABS: BASOPHILS # (AUTO) 0.1 K/uL (0-0.2); BASOPHILS % (AUTO) 0.7 % (0.0-3.0); EOSINOPHILS # (AUTO) 0.4 K/ul (0.0-0.7); HEMATOCRIT 42.2 % (42.0-52.0); HEMOGLOBIN 14.6 g/dl (14.0-18.0); IMMATURE GRANULOCYTE % (AUTO) 0.4 % (0.0-5.0); LYMPHOCYTES # (AUTO) 2.3 K/uL (0.60-3.4); LYMPHOCYTES % (AUTO) 22.8 (10.0-50.0); MEAN CORPUSCULAR HEMOGLOBIN 30.5 pg (27.0-31.0); MEAN CORPUSCULAR HGB CONC 34.6 (31.8-35.4); MEAN CORPUSCULAR VOLUME 88.1 fl (80.0-94.0); MONOCYTES # (AUTO) 0.7 K/uL (0.4-2.0); MONOCYTES % (AUTO) 6.9 (0-10); NEUTROPHILS # (AUTO) 6.6 K/ul (2.0-6.9); NEUTROPHILS % (AUTO) 65.2; PLATELET COUNT 276 10^3/uL (140-440); RED BLOOD COUNT 4.79 10^6/ul (4.70-6.10); WHITE BLOOD COUNT 10.13 K/ul (4.2-10.2)
[2016-10-07 17:48] LABS: ALBUMIN 3.9 g/dL (3.4-5.0); ANION GAP 16.3; BILIRUBIN,TOTAL 0.23 mg/dL (0.00-1.20); BUN/CREATININE RATIO 11.23; CALCIUM 9.9 mg/dL (8.2-10.2); CREATININE 0.89 mg/dL (0.60-1.10); POTASSIUM 4.3 mmol/L (3.5-5.1); TOTAL PROTEIN 7.8 g/dL (6.4-8.2)
--- NOTE | 2016-10-07 18:00 | ED.PDOC ---
General ED Provider: Dr. BERNA ENAMORADO Chief Complaint: Headache Stated Complaint: headache Time Seen by Physician: 16:40 (notice small amount of blood from right ear) Mode of Arrival: Walk-In Information Source: Patient Exam Limitations: No limitations Primary Care Provider: AIME MONROE Nursing and Triage Documentation Reviewed and Agree: Yes Neurological Complaint Exam - Headache Complaint/Exam Onset: Gradual Duration: today Symptoms Are: Still present Timing: Constant Worst Headache Ever: Yes (almost) Initial Severity: Moderate Current Severity: Moderate Location: Temporal Character: Reports: Dull Aggravating: Reports: None Alleviating: Reports: None Associated Signs and Symptoms: Denies: Dizziness, Seizure, Nausea, Vomiting, Sinus pressure, Fever, Neck pain, Neck stiffness, Decreased LOC, Visual changes Related History: Reports: Similar episode Related Surgical History: Reports: None SAH Risk Factors: Reports: None Meningitis Risk Factors: Reports: None SDH Risk Factors: Reports: Male Temporal Arteritis Risk Factors: Reports: Fundoscopic Exam: Present: Normal Findings Papilledema Present: No Temporal Artery Tenderness: Present: None Sinus Tenderness: Present: None TMJ Tenderness: Present: None Glascow Coma Scale (see protocol): 15 Meningeal Signs Positive: No Pain on Passive Flexion-Positive Kernig's: No ROM Limited In: No Limitiations Focal Weakness: Present: None Focal Sensory Loss: Present: None Gait: Normal Nystagmus Present: No Gag Reflex Present: Yes Differential Diagnoses: Tension Headache Review of Systems - Review Of Systems Constitutional: Reports: No symptoms Eyes: Reports: No symptoms Ears, Nose, Mouth, Throat: Reports: No symptoms Respiratory: Reports: No symptoms Cardiac: Reports: No symptoms GI: Reports: No symptoms : Reports: No symptoms Musculoskeletal: Reports: No symptoms Skin: Reports: No symptoms Neurological: Reports: Headache Endocrine: Reports: No symptoms Hematologic/Lymphatic: Reports: No symptoms All Other Systems: Reviewed and Negative Past Medical History - Past Medical History Previously Healthy: Yes Endocrine: Reports: DM 2 Cardiovascular: Reports: CAD Respiratory: Reports: None Hematological: Reports: None Gastrointestinal: Reports: None Genitourinary: Reports: Kidney stones Neuro/Psych: Reports: None Musculoskeletal: Reports: Arthritis Cancer: Reports: None - Surgical History General Surgical History: Reports: CABG (2014), Back Surgery (left knee surgery , right shoulder, back surgery x 4) - Family History Family History: Reports: Unknown - Social History Smoking Status: Former smoker Hx Substance Use: No Alcohol Screening: None Physical Exam - Physical Exam Appearance: Well-appearing, No pain distress, Well-nourished Eyes: MOUNA, EOMI, Conjunctiva clear ENT: Ears normal, Nose normal, Oropharynx normal Respiratory: Airway patent, Breath sounds clear, Breath sounds equal, Respirations nonlabored Cardiovascular: RRR, Pulses normal, No rub, No murmur GI/: Soft, Nontender, No masses, Bowel sounds normal, No Organomegaly Musculoskeletal: Normal strength, ROM intact, No edema, No calf tenderness Skin: Warm, Dry, Normal color Neurological: Sensation intact, Motor intact, Reflexes intact, Cranial nerves intact, Alert, Oriented Psychiatric: Affect appropriate, Mood appropriate Interpretation - Radiology Interpretation Radiology Interpretation By: Radiologist Radiology Results: No acute changes Critical Care Note - Critical Care Note Total Time (mins): 0 Course - Course Hematology/Chemistry: 10/07/16 17:25 10/07/16 17:25 Orders, Labs, Meds: Lab Review 10/07/16 17:25 WBC 10.13 RBC 4.79 Hgb 14.6 Hct 42.2 MCV 88.1 MCH 30.5 MCHC 34.6 RDW Coeff of Maritza 13.0 Plt Count 276 Immature Gran % (Auto) 0.4 Neut % (Auto) 65.2 Lymph % (Auto) 22.8 [place] % (Auto) 6.9 Eos % (Auto) 4.0 Baso % (Auto) 0.7 Immature Gran # (Auto) 0.0 Neut # 6.6 Lymph # 2.3 [place] # 0.7 Eos # 0.4 Baso # 0.1 Sodium 136 Potassium 4.3 Chloride 100 Carbon Dioxide 24 Anion Gap 16.3 BUN 10 Creatinine 0.89 Estimated GFR (MDRD) 89.00 BUN/Creatinine Ratio 11.23 Glucose 328 H Calcium 9.9 Total Bilirubin 0.23 AST 12 L ALT 26 Alkaline Phosphatase 83 Total Protein 7.8 Albumin 3.9 Globulin 3.9 Albumin/Globulin Ratio 1.00 Orders Category Date Time Status BLOOD CULTURE Stat LAB 10/07/16 17:13 Ordered CBC W/ AUTO DIFF Stat LAB 10/07/16 17:13 Ordered COMPREHENSIVE METABOLIC PANEL Stat LAB 10/07/16 17:13 Ordered Morphine Sulfate [Morphine 4 mg/ml Syringe] MEDS 10/07/16 17:13 Stat 4 mg IM ONCE STA Ondansetron HCl/Pf [Zofran 4 mg/2 ml] MEDS 10/07/16 17:13 Stat 4 mg IM ONCE STA CT HEAD W/O CONTRAST Stat RADS 10/07/16 17:13 Ordered Medications Discontinued Medications Generic Name Dose Route Start Last Admin Trade Name Freq PRN Reason Stop Dose Admin Morphine Sulfate 4 mg 10/07/16 17:13 10/07/16 17:31 Morphine 4 Mg/Ml Syringe IM 10/07/16 17:14 4 mg ONCE STA Administration Ondansetron HCl 4 mg 10/07/16 17:13 10/07/16 17:30 Zofran 4 Mg/2 Ml IM 10/07/16 17:14 4 mg ONCE STA Administration Vital Signs: Temp Pulse Resp BP Pulse Ox 10/07/16 16:39 97.6 F 82 20 153/96 H 96 Departure - Departure Time of Disposition: 17:59 Disposition: HOME SELF-CARE Discharge Problem: Headache, Otitis media Instructions: Acute Headache (ED) Condition: Good Pt referred to PMD for follow-up: Yes Allergies/Adverse Reactions: Allergies No Known Allergies Allergy (Verified 10/07/16 16:45) Home Medications: Ambulatory Orders Atorvastatin Calcium [Lipitor] 40 mg PO BEDTIME 05/24/16 Lisinopril/Hydrochlorothiazide [Lisinopril-Hctz 10-12.5 mg Tab] 1 each PO DAILY 05/24/16 Canagliflozin [Invokana] 300 mg PO DAILY 06/23/16 Insulin Glargine,Hum.rec.anlog [Lantus Solostar] 75 unit SQ BID 06/23/16 Insulin Lispro [Humalog] 10 unit SUBCUT TIDWM PRN 06/23/16 Diazepam [Valium] 2 mg PO BEDTIME 06/27/16 Pantoprazole Sodium [Protonix] 40 mg PO QDAC #30 tablet. 07/01/16 Aspirin [Aspirin EC] 81 mg PO 0800 09/24/16 Hydrocodone Bit/Acetaminophen [[place] 5-325] 2 tab PO BEDTIME 09/24/16 Metoprolol Succinate 25 mg PO DAILY 09/24/16 Ticagrelor [Brilinta] 90 mg PO BID 09/24/16 Docusate Sodium [Colace] 100 mg PO DAILY #30 capsule 09/25/16 Gabapentin [Neurontin] 300 mg PO BID #60 capsule 09/25/16 Disposition Discussed With: Patient
--- NOTE | 2016-10-07 18:10 | CT ---
EXAM: CT head without contrast. HISTORY: Headache. PROCEDURE: Contiguous axial CT images of the head without contrast with coronal reformats. FINDINGS : The ventricles and basal cisterns are normal in size and configuration. No evidence of m ass or midline shift. No intracranial hemorrhage or evidence of large vessel infarct. No extra-axi al fluid collection. There is minimal mucosal thickening in the paranasal sinuses. The mastoid air cells are well-aerated. Impression: Negative CT of the head. Paranasal sinusitis.
== END 2016-10-07 18:16 | disposition home or self-care (01) ==
LOC: ED 16:38
DX: J32.9 Chronic sinusitis, unspecified (principal); H66.90 Otitis media, unspecified, unspecified ear; E11.9 Type 2 diabetes mellitus without complications; I25.810 Atherosclerosis of coronary artery bypass graft(s) without angina pectoris; Z79.899 Other long term (current) drug therapy
CPT/HCPCS: 36415; 80053; 85025; 87040; 96372; 99283

== ENCOUNTER 2016-11-26 10:53 | Inpatient (IN) | payer OTHER ==
--- NOTE | 2016-11-26 10:59 | ED.PDOC ---
General ED Provider: Dr. BAYRON TAYLOR Chief Complaint: Chest Pain Stated Complaint: Chest pain, left arm pain and posterior head and neck pain, intermittently for several weeks, constant x 4 days. Saw PCP today who sent him to ED. Time Seen by Physician: 11:02 Mode of Arrival: Walk-In Information Source: Patient Exam Limitations: No limitations Primary Care Provider: AIME MONROE Nursing and Triage Documentation Reviewed and Agree: Yes Cardiovascular Complaint Exam - Chest Pain Complaint/Exam Onset: Sudden Duration: 4 days Symptoms Are: Still present Timing: Constant, Intermittent (intermittent x 3 weeks, constant x 4 days) Length of Chest Pain Episodes: 5- 10 minutes Initial Severity: Moderate Current Severity: Moderate Location: Reports: Midsternal Pain Radiates: Reports: Left shoulder, Neck, Other (occiput) Character: Reports: Aching, Tightness Aggravating: Reports: Exertion Alleviating: Reports: None Associated Signs and Symptoms: Reports: Diaphoresis, Nausea, Short of air Related History: Reports: Similar episode (same symptoms in 2013 which were dx' d as angina and led to 6V CABG) Related Surgical History: Reports: Cardiac Cath, CABG (02/2014) History of Healthcare-Acquired Pneumonia: Reports: No AMI/ACS Risk Factors: Reports: Myocardial Infarction, Diabetes, Hypertension, Smoking TAD Risk Factors: Reports: Hypertension, Smoking Prior Care for this Complaint: No Recent Stress Test: No Recent Echo/LV Function: No JVD Present: No Subcutaneous Emphysema Present: No Diminshed Breath Sounds: No Reproducible Chest Wall Pain: No Bilateral Pulses Present: No Unequal Pulses Noted: No If Risk Factors for AMI/ACS Consider: EKG, Cardiac Enzymes, Oxygen, Aspirin Documents Reviewed: Labs, Imaging, EKG Care and Dx Studies Discussed With: Family Differential Diagnoses: Acute NV, Unstable Angina, GI Diseasae, Lower Resp. Infection Quality Indicators For Acute NV or Cardiac Chest Pain: EKG in 10min., ASA if indicated Quality Indicator For Non-Traumatic Chest Pain/Syncope: EKG Performed Patient Advised to Stop Smoking: Yes Review of Systems - Review Of Systems Constitutional: Reports: Weakness Eyes: Reports: No symptoms Ears, Nose, Mouth, Throat: Reports: No symptoms Respiratory: Reports: Short of air Cardiac: Reports: Chest pain GI: Reports: Nausea : Reports: No symptoms Musculoskeletal: Reports: No symptoms Skin: Reports: No symptoms Neurological: Reports: No symptoms All Other Systems: Reviewed and Negative Past Medical History - Past Medical History Previously Healthy: Yes Endocrine: Reports: DM 2 Cardiovascular: Reports: CAD Respiratory: Reports: None Hematological: Reports: None Gastrointestinal: Reports: None Genitourinary: Reports: Kidney stones Neuro/Psych: Reports: None Musculoskeletal: Reports: Arthritis Cancer: Reports: None - Surgical History General Surgical History: Reports: CABG (2014), Back Surgery (left knee surgery , right shoulder, back surgery x 4) - Family History Family History: Reports: Unknown - Social History Smoking Status: Former smoker Hx Substance Use: No Alcohol Screening: None Lives: With family - Immunizations Tetanus Shot up to Date: No Influenza Vaccine within 12 Months: No Pneumococcal Vaccine up to Date: No Physical Exam - Physical Exam Appearance: Well-appearing, Well-nourished, Obese Ill-appearing: None Pain Distress: Mild Eyes: MOUNA, EOMI, Conjunctiva clear ENT: Ears normal, Nose normal, Oropharynx normal Neck: Supple Respiratory: Airway patent, Breath sounds clear, Breath sounds equal, Respirations nonlabored Cardiovascular: RRR, Pulses normal, No rub, No murmur GI/: Soft, Nontender, No masses, Bowel sounds normal, No Organomegaly Musculoskeletal: Normal strength, ROM intact, No edema, No calf tenderness Skin: Warm, Dry, Normal color Neurological: Sensation intact, Motor intact, Reflexes intact, Cranial nerves intact, Alert, Oriented Psychiatric: Affect appropriate, Mood appropriate Interpretation - Radiology Interpretation Radiology Interpretation By: Radiologist Radiology Results: Negative Exam Interpreted: Portable CXR Xray Comments: unremarkable - EKG Interpretation Time of EKG #1: 11:10 Rate: Normal Rhythm: Sinus Ectopy: None [place]: NL ST Segment: Normal Interpretation: Old inf wall NV, possible lateral infarct, age undetermined Re-Evaluation - Re-Evaluation Time of Re-Evaluation: 13:19 Status: Improved Vital Signs Stable: Yes (except BP) Pain Level: 6 Appearance: NAD Lungs: Clear Skin: Warm and Dry Neuro: Alert and Oriented X3 CV: RRR Additional Comments: Pain persists after SL nitro, but hurts more with movement Physician Notification - Case Discussed Physician Notified: Dr. Monroe Time of Notification: 13:15 (observation admission & give Toradol IV for pain) Critical Care Note - Critical Care Note Total Time (mins): 0 Course - Course Hematology/Chemistry: 11/26/16 11:05 11/26/16 11:05 Orders, Labs, Meds: Lab Review 11/26/16 11/26/16 11:05 11:05 WBC 11.14 H RBC 4.97 Hgb 14.7 Hct 43.3 MCV 87.1 MCH 29.6 MCHC 33.9 RDW Coeff of Maritza 13.6 Plt Count 304 Immature Gran % (Auto) 0.4 Neut % (Auto) 70.5 Lymph % (Auto) 18.2 [place] % (Auto) 5.7 Eos % (Auto) 4.4 Baso % (Auto) 0.8 Immature Gran # (Auto) 0.0 Neut # 7.9 H Lymph # 2.0 [place] # 0.6 Eos # 0.5 Baso # 0.1 Sodium 133 L Potassium 4.1 Chloride 98 Carbon Dioxide 22 Anion Gap 17.1 BUN 18 Creatinine 1.16 H Estimated GFR (MDRD) 66.00 BUN/Creatinine Ratio 15.51 Glucose 415 H Calcium 9.9 Total Bilirubin 0.43 AST 16 ALT 25 Alkaline Phosphatase 83 Total Creatine Kinase 107 Troponin I 0.0230 Total Protein 8.2 Albumin 4.0 Globulin 4.2 Albumin/Globulin Ratio 0.95 Orders Category Date Time Status EKG-(ED ONLY) Stat CARDIO 11/26/16 11:09 Completed ED APPLY O2 .ONCE EMERGENCY 11/26/16 11:09 Active ED PLATEN PRESS OPERATOR APPRENTICE APPLIED .ONCE EMERGENCY 11/26/16 11:09 Active CBC W/ AUTO DIFF Stat LAB 11/26/16 11:05 Completed COMPREHENSIVE METABOLIC PANEL Stat LAB 11/26/16 11:05 Completed CREATINE KINASE Stat LAB 11/26/16 11:05 Completed TROPONIN I Stat LAB 11/26/16 11:05 Completed Aspirin [Aspirin Chewable] MEDS 11/26/16 11:24 Discontinued 243 mg .ROUTE .STK-MED ONE Aspirin [Aspirin Chewable] MEDS 11/26/16 11:24 Discontinued 243 mg PO ONCE STA Nitroglycerin [Nitrostat] MEDS 11/26/16 11:41 Discontinued 0.4 mg SL ONCE STA Nitroglycerin [Nitrostat] MEDS 11/26/16 12:25 Discontinued 0.4 mg SL ONCE STA CHEST, 1V AP ONLY Stat RADS 11/26/16 11:09 Completed Medications Discontinued Medications Generic Name Dose Route Start Last Admin Trade Name Freq PRN Reason Stop Dose Admin Aspirin 243 mg 11/26/16 11:24 11/26/16 11:40 Aspirin Chewable PO 11/26/16 11:25 Not Given ONCE STA Nitroglycerin 0.4 mg 11/26/16 11:41 11/26/16 11:46 Nitrostat SL 11/26/16 11:42 0.4 mg ONCE STA Administration Nitroglycerin 0.4 mg 11/26/16 12:25 11/26/16 12:26 Nitrostat SL 11/26/16 12:26 0.4 mg ONCE STA Administration Vital Signs: Temp Pulse Resp BP Pulse Ox 11/26/16 10:54 99.0 F 84 20 121/79 97 AMI Core - Clinical Trial Participant Clinical Trial Participant: No - Statins Reason for not ordering Statins: not indicated - EKG Initial Interpretation EKG Initial Interpretation Date: 11/26/16 (old IWMI, nothing acute) DAMIÁN Risk Score Age >/= 65: No >/= 3 CAD Risk Factors: Yes Known CAD (Stenosis >/= 50%): Yes ASA Use in Past 7 Days: Yes Severe Angina (>/= 2 episodes in 24 hours): Yes EKG ST Changes >/= 0.5mm: No Postive Cardiac Marker: No DAMIÁN Total Score: 4 DAMIÁN Risk Score: Risk Score Odds of by 30D 0 0.1 (0.1-0.2) 1 0.3 (0.2-0.3) 2 0.4 (0.3-0.5) 3 0.7 (0.6-0.9) 4 1.2 (1.0-1.5) 5 2.2 (1.9-2.6) 6 3.0 (2.5-3.6) 7 4.8 (3.8-6.1) Departure - Departure Time of Disposition: 13:34 Disposition: PLACED OBSERVATION Discharge Problem: Chest pain in adult Instructions: Chest Pain (ED) Condition: Good Pt referred to PMD for follow-up: Yes (Will see as inpatient) Allergies/Adverse Reactions: Allergies No Known Allergies Allergy (Verified 11/26/16 11:03) Home Medications: Ambulatory Orders Atorvastatin Calcium [Lipitor] 40 mg PO BEDTIME 05/24/16 Lisinopril/Hydrochlorothiazide [Lisinopril-Hctz 10-12.5 mg Tab] 1 each PO DAILY 05/24/16 Canagliflozin [Invokana] 300 mg PO DAILY 06/23/16 Insulin Glargine,Hum.rec.anlog [Lantus Solostar] 75 unit SQ BID 06/23/16 Insulin Lispro [Humalog] 10 unit SUBCUT TIDWM PRN 06/23/16 Diazepam [Valium] 2 mg PO BEDTIME 06/27/16 Pantoprazole Sodium [Protonix] 40 mg PO QDAC #30 tablet. 07/01/16 Aspirin [Aspirin EC] 81 mg PO 0800 09/24/16 Metoprolol Succinate 25 mg PO DAILY 09/24/16 Ticagrelor [Brilinta] 90 mg PO BID 09/24/16 Gabapentin [Neurontin] 300 mg PO BID #60 capsule 09/25/16 Docusate Sodium [Colace] 100 mg PO DAILY PRN 11/26/16 Hydrocodone/Acetaminophen [[place] 10-325 Tablet] 1 each PO Q8HR PRN 11/26/16 Disposition Discussed With: Patient
[2016-11-26] MEDS ORDERED: ASPIRIN CHEWABLE ONE (11:24)
[2016-11-26] MEDS ORDERED: ASPIRIN CHEWABLE PO STA (11:24)
[2016-11-26 11:35] LABS: BASOPHILS # (AUTO) 0.1 K/uL (0-0.2); BASOPHILS % (AUTO) 0.8 % (0.0-3.0); EOSINOPHILS # (AUTO) 0.5 K/ul (0.0-0.7); EOSINOPHILS % (AUTO) 4.4 % (0.0-7.0); HEMATOCRIT 43.3 % (42.0-52.0); HEMOGLOBIN 14.7 g/dl (14.0-18.0); IMMATURE GRANULOCYTE % (AUTO) 0.4 % (0.0-5.0); LYMPHOCYTES % (AUTO) 18.2 (10.0-50.0); MEAN CORPUSCULAR HEMOGLOBIN 29.6 pg (27.0-31.0); MEAN CORPUSCULAR HGB CONC 33.9 (31.8-35.4); MEAN CORPUSCULAR VOLUME 87.1 fl (80.0-94.0); MONOCYTES # (AUTO) 0.6 K/uL (0.4-2.0); MONOCYTES % (AUTO) 5.7 (0-10); NEUTROPHILS # (AUTO) 7.9 K/ul (2.0-6.9); NEUTROPHILS % (AUTO) 70.5; PLATELET COUNT 304 10^3/uL (140-440); RED BLOOD COUNT 4.97 10^6/ul (4.70-6.10); WHITE BLOOD COUNT 11.14 K/ul (4.2-10.2)
[2016-11-26] MEDS ORDERED: NITROSTAT SL STA ×2 (11:41→12:25)
[2016-11-26 11:58] LABS: ALBUMIN/GLOBULIN RATIO 0.95; ANION GAP 17.1; BILIRUBIN,TOTAL 0.43 mg/dL (0.00-1.20); BUN/CREATININE RATIO 15.51; CALCIUM 9.9 mg/dL (8.2-10.2); CREATININE 1.16 mg/dL (0.60-1.10); POTASSIUM 4.1 mmol/L (3.5-5.1); TOTAL PROTEIN 8.2 g/dL (6.4-8.2); TROPONIN I 0.023 ng/ml (0.0000-0.4000)
--- NOTE | 2016-11-26 11:58 | DI ---
EXAM: Single frontal view of the chest HISTORY: Chest pain. COMPARISON: Chest x-ray 06/28/2016 and multiple priors FINDINGS: Cardiomediastinal silhouette is unchanged and minimally enlarged with intact sternotomy wir es. There is no pneumothorax or pleural effusion. There is no consolidation, nodule or mass. The o sseous structures are unremarkable. IMPRESSION: No acute cardiopulmonary process or significant interval change.
[2016-11-26] MEDS ORDERED: TORADOL IVP STA (13:16)
[2016-11-26] MEDS ORDERED: MORPHINE 4 MG/ML VIAL IVP PRN (13:23)
[2016-11-26] MEDS ORDERED: NITROSTAT SL PRN (13:23)
[2016-11-26] MEDS ORDERED: ATROPINE SULFATE PFS IVP PRN (13:23)
[2016-11-26] MEDS ORDERED: TYLENOL PO PRN (13:23)
[2016-11-26] MEDS ORDERED: MORPHINE 4 MG/ML SYRINGE IVP PRN (14:20)
[2016-11-26 14:57] VITALS: BMI 36.0
[2016-11-26] MEDS ORDERED: DECADRON 4 MG/ML SDV IM STA (14:58)
[2016-11-26] MEDS ORDERED: TORADOL IVP PRN (15:02)
--- NOTE | 2016-11-26 16:17 | CT ---
EXAM: CT cervical spine without contrast HISTORY: Back pain, left shoulder and neck 4 days, numbness right arm, no known injury COMPARISON: 05/23/2016 TECHNIQUE: CT cervical spine performed without intravenous contrast. Coronal and sagittal reformatt ed images obtained. FINDINGS: Vertebral bodies normal in height. No fracture. No subluxation. Straightening of the no rmal cervical lordosis. Multilevel marginal osteophyte formation. Mild to moderate intervertebral s pace narrowing C6-C7. Multilevel facet and uncovertebral hypertrophy. Prevertebral soft tissues hema ear normal. C2-C3: No central canal or neural foraminal narrowing. C3-C4: Posterior disc osteophyte complex and facet arthrosis causing mild bilateral neural foraminal narrowing. C4-C5: Posterior disc osteophyte complex and facet arthrosis causing mild central canal and mild michelle ateral neural foraminal narrowing. C5-C6: Posterior disc osteophyte complex and facet arthrosis causing mild central canal narrowing. C6-C7: Central canal partially obscured secondary to streak artifact. Posterior disc osteophyte com plex and facet arthrosis causing probably mild central canal, fall mild right and moderate left neura l foramen and C7-C1: No definite central canal or neural foraminal narrowing. IMPRESSION: 1. No fracture or subluxation. 2. Chronic discogenic degenerative disease and facet arthrosis. Please see segmental analysis. 3. Straightening of the normal cervical lordosis.
--- NOTE | 2016-11-26 16:22 | US ---
EXAM: Bilateral carotid artery Doppler History: Headaches and chest pain. Technique: Multiple sonographic images through the bilateral internal carotid arteries were obtained . Color duplex Doppler was used to interrogate vascular flow. Findings: The right ICA peak systolic velocity is within normal limits measuring 80 cm/sec. The right ICA/cca PSV ratio is normal at 1.3. The right vertebral artery was not visualized. Katz scale images demons trate mild plaque buildup within the right internal carotid artery. The left ICA peak systolic velocity is within normal limits measuring 90 cm/sec. The left ICA/cca PS V ratio is normal at 0.8. The left vertebral artery is patent and demonstrates antegrade flow. Katz scale images demonstrate mild to moderate plaque buildup within the left internal carotid artery Impression: 1. No significant hemodynamic stenosis of the bilateral internal carotid arteries. 2. Nonvisualization of the right vertebral artery.
[2016-11-26] MEDS ORDERED: NORCO 10-325 PO PRN (16:57)
[2016-11-26] MEDS ORDERED: COLACE PO PRN (16:57)
[2016-11-26] MEDS ORDERED: HUMALOG SUBCUT PRN (16:57)
[2016-11-26] MEDS ORDERED: NORCO 10-325 ONE (17:33)
[2016-11-26] MEDS: NORCO 10-325 PO PRN (17:44)
[2016-11-26 19:14] LABS: TROPONIN I 0.01 ng/ml (0.0000-0.4000)
[2016-11-26] MEDS ORDERED: VALIUM PO SCH (21:00)
[2016-11-26] MEDS ORDERED: TICAGRELOR 90 MG PO SCH ×21 (21:00)
[2016-11-26] MEDS ORDERED: INSULIN GLARGINE HUM REC ANLOG 75 UNIT SQ SCH (21:00)
[2016-11-26] MEDS ORDERED: NON-FORMULARY MEDICATION (Atorvastatin Calcium [Lipitor] 40 MG) PO SCH ×22 (21:00)
[2016-11-26] MEDS ORDERED: LANTUS SUBCUT ONE (21:25)
[2016-11-26] MEDS ORDERED: LIPITOR ONE (21:25)
[2016-11-26] MEDS: NEURONTIN PO SCH (21:29)
[2016-11-26] MEDS: MORPHINE 2 MG/ML SYRINGE IVP PRN (21:37)
[2016-11-27] MEDS: SODIUM CHLORIDE 1,000 ML IV SCH ×2 (00:28→05:54)
[2016-11-27 03:18] LABS: BASOPHILS % (AUTO) 0.3 % (0.0-3.0); EOSINOPHILS % (AUTO) 0.2 % (0.0-7.0); HEMATOCRIT 44.4 % (42.0-52.0); HEMOGLOBIN 14.8 g/dl (14.0-18.0); IMMATURE GRANULOCYTE % (AUTO) 0.6 % (0.0-5.0); LYMPHOCYTES # (AUTO) 0.9 K/uL (0.60-3.4); LYMPHOCYTES % (AUTO) 10.1 (10.0-50.0); MEAN CORPUSCULAR HEMOGLOBIN 29.1 pg (27.0-31.0); MEAN CORPUSCULAR HGB CONC 33.3 (31.8-35.4); MEAN CORPUSCULAR VOLUME 87.4 fl (80.0-94.0); MONOCYTES # (AUTO) 0.1 K/uL (0.4-2.0); MONOCYTES % (AUTO) 1.3 (0-10); NEUTROPHILS # (AUTO) 7.8 K/ul (2.0-6.9); NEUTROPHILS % (AUTO) 87.5; PLATELET COUNT 321 10^3/uL (140-440); RED BLOOD COUNT 5.08 10^6/ul (4.70-6.10); WHITE BLOOD COUNT 8.93 K/ul (4.2-10.2)
[2016-11-27 03:41] LABS: TROPONIN I 0.017 ng/ml (0.0000-0.4000)
[2016-11-27 03:57] LABS: ALBUMIN 3.9 g/dL (3.4-5.0); ALBUMIN/GLOBULIN RATIO 0.91; ANION GAP 17.6; BILIRUBIN,TOTAL 0.58 mg/dL (0.00-1.20); BUN/CREATININE RATIO 18.44; CALCIUM 10.4 mg/dL (8.2-10.2); CREATININE 1.03 mg/dL (0.60-1.10); POTASSIUM 4.6 mmol/L (3.5-5.1); TOTAL PROTEIN 8.2 g/dL (6.4-8.2)
[2016-11-27] MEDS ORDERED: NORCO 10-325 ONE (05:43)
[2016-11-27] MEDS: NORCO 10-325 PO PRN (05:44)
[2016-11-27] MEDS ORDERED: PROTONIX PO SCH (06:30)
[2016-11-27] MEDS ORDERED: ASPIRIN EC PO SCH (08:00)
[2016-11-27] MEDS: NEURONTIN PO SCH (08:38)
[2016-11-27] MEDS: MORPHINE 2 MG/ML SYRINGE IVP PRN (08:46)
[2016-11-27] MEDS ORDERED: LANTUS SUBCUT SCH (09:00)
[2016-11-27] MEDS ORDERED: TOPROL XL PO SCH (09:00)
[2016-11-27] MEDS ORDERED: NON-FORMULARY MEDICATION (Canagliflozin [Invokana] 300 MG) PO SCH (09:00)
[2016-11-27] MEDS ORDERED: BRILINTA PO SCH (09:00)
--- NOTE | 2016-11-27 09:27 | PCM.PROG ---
Attending Provider: ATTENDING PROVIDER: Dr. AIME MONROE DATE OF SERVICE: 11/27/16 SUBJECTIVE: This 51 year old WHITE/ M was hospitalized 11/26/16. The patient is seen with Audra, Nurse Practitioner. The patient is alert, lying in bed. He states he feels right-sided pain is a tingly feeling. CT scan showed degenerative disk disease of C-Spine. REVIEW OF SYSTEMS: CONSTITUTIONAL: No night sweats. No fatigue, malaise, lethargy. No fever or chills. HEENT: Eyes: No visual changes. No eye pain. No eye discharge. ENT: No runny nose. No epistaxis. No sinus pain. No odynophagia. No congestion. RESPIRATORY: No cough, no congestion. No hemoptysis. No shortness of breath. CARDIOVASCULAR: No angina symptoms. No CHF symptoms. No atypical chest pain for CAD. No palpitations. No orthopnea.. GASTROINTESTINAL: No abdominal pain. No nausea or vomiting. No diarrhea or constipation. No hematemesis. No hematochezia. GENITOURINARY: No urgency. No frequency. No dysuria. No hematuria. No obstructive symptoms. No discharge. No pain. No significant abnormal bleeding. MUSCULOSKELETAL: No musculoskeletal pain; no joint swelling. NEUROLOGICAL: Awake, alert, oriented to time, place and person. Positive for neck pain. Arm tingling. No headache. No syncope. No seizures. No dizziness. PSYCHIATRIC: Not anxious. No depression. No suicidal thoughts. No homicidal thoughts. SKIN: No rash. No lesions. No wounds. ENDOCRINE: No unexplained weight loss. No weight gain. HEMATOLOGIC/LYMPHATIC: No anemia. No purpura. No petechiae. No prolonged or excessive bleeding. No palpable lymph nodes. PHYSICAL EXAMINATION: GENERAL: The patient is awake, alert and oriented, lying in bed in no distress. VITAL SIGNS: Temperature 98.0 F, Pulse 87, Respiratory Rate 16, BP 136/95, Pulse Ox 98% HEENT: Head normocephalic, atraumatic. Eyes: Extraocular muscles are intact. Pupils are equal, round and reactive to light and accommodation. Ears: No lesions. Nose appeared normal. Throat: No exudate or erythema. NECK: Supple. No JVD, no carotid bruit. No lymphadenopathy or thyromegaly. LUNGS: Diminished breath sounds bilaterally. Clear to auscultation. Percussion note normal. Chest symmetrical. HEART: S1, S2, no S3. No murmurs. No cyanosis or clubbing. No ascites. Pulses: Dorsalis pedis and posterior tibial pulses +1 to +2 both sides. ABDOMEN: Soft. Non-tender. Bowel sounds active. No CVA tenderness. No mass felt. EXTREMITIES: No edema. Full range of motion of all extremities, equal. NEUROLOGIC: No focal deficit. Cranial nerves II through XII are grossly intact. Neck pain. Arm tingly. No headache, no double vision or headache. SKIN: Not dry. Intact. Turgor-normal. LYMPHATIC: No palpable lymph nodes/no lymphedema. MUSCULOSKELETAL: Normal joints with no swelling. Muscle tone is normal. LAB REVIEW: 11/27/16 03:10 11/27/16 03:10 11/27/16 03:10: Sodium 136, Potassium 4.6, Chloride 101, Carbon Dioxide 22, Anion Gap 17.6, BUN 19 H, Creatinine 1.03, Estimated GFR (MDRD) 76.00, BUN/ Creatinine Ratio 18.44, Glucose 246 H D, Calcium 10.4 H, Total Bilirubin 0.58, AST 16, ALT 25, Alkaline Phosphatase 71, Total Protein 8.2, Albumin 3.9, Globulin 4.3, Albumin/Globulin Ratio 0.91 11/27/16 03:10: WBC 8.93, RBC 5.08, Hgb 14.8, Hct 44.4, MCV 87.4, MCH 29.1, MCHC 33.3, RDW Coeff of Maritza 13.4, Plt Count 321, Immature Gran % (Auto) 0.6, Neut % (Auto) 87.5, Lymph % (Auto) 10.1, [place] % (Auto) 1.3, Eos % (Auto) 0.2, Baso % (Auto) 0.3, Immature Gran # (Auto) 0.1, Neut # 7.8 H, Lymph # 0.9, Mcleod # 0.1 L, Eos # 0.0, Baso # 0.0 11/27/16 03:10: Total Creatine Kinase 91, Myoglobin 43, Troponin I 0.0170 11/26/16 18:45: Total Creatine Kinase 79, Myoglobin 47, Troponin I 0.0100 ASSESSMENT: 1. Atypical chest pain 2. Right cervical radiculopathy 3. C-spine DJD PLAN: 1. Decadron 1 cc today 2. Stretching and exercises discussed 3. Smoking cessation provided Plan and coordination of the patient's care discussed in the presence of Masonry Teacher and nurse. CONDITION: Stable SCRIBED BY: NINA BAKER Veterinary Receptionist scribed while in presence of service performed by Dr. AIME MONROE/AUDRA SINGH APRN on 11/27/16 ([id number])
[2016-11-27 10:20] VITALS: BP 119/67; TEMP 98
[2016-11-27] MEDS ORDERED: HYDROCHLOROTHIAZIDE PO SCH (11:00)
[2016-11-27] MEDS ORDERED: ZESTRIL PO SCH (11:00)
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
[2016-11-27] MEDS ORDERED: LIPITOR PO SCH (21:00)
[2016-11-28] MEDS ORDERED: DECADRON 4 MG/ML SDV IM SCH (06:00)
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
== END 2016-11-27 11:23 | disposition home or self-care (01) | DRG 313 ==
LOC: ED 10:53 → MEDSURG B 13:35 → OBSVTOIN 13:35
PROVIDERS: ADMIT Internal Medicine; ATTEND Internal Medicine
DX: R07.89 Other chest pain (principal); M54.12 Radiculopathy, cervical region; M50.33 Other cervical disc degeneration, cervicothoracic region; M47.9 Spondylosis, unspecified; I10 Essential (primary) hypertension; E11.9 Type 2 diabetes mellitus without complications; E66.9 Obesity, unspecified; E78.5 Hyperlipidemia, unspecified; K21.9 Gastro-esophageal reflux disease without esophagitis; G62.9 Polyneuropathy, unspecified; F41.9 Anxiety disorder, unspecified; M79.602 Pain in left arm; R51 Headache; R61 Generalized hyperhidrosis; R11.0 Nausea; R06.02 Shortness of breath; I25.10 Atherosclerotic heart disease of native coronary artery without angina pectoris; I25.2 Old myocardial infarction; Z95.1 Presence of aortocoronary bypass graft; Z79.4 Long term (current) use of insulin; Z95.5 Presence of coronary angioplasty implant and graft; Z87.891 Personal history of nicotine dependence; Z68.36 Body mass index [BMI] 36.0-36.9, adult
CPT/HCPCS: 36415; 80053; 82550; 82962; 83874; 84484; 85025; 85379; 93005; 93010; 96361; 96374; 99284

== ENCOUNTER 2016-12-16 18:34 | Outpatient (CLI) ==
[2016-12-17 00:21] VITALS: BMI 33.0
== END 2016-12-16 18:55 | disposition short-term general hospital (02) ==
LOC: AMBL 18:34
PROVIDERS: ATTEND Internal Medicine
DX: M54.5 Low back pain (principal); G89.29 Other chronic pain

== ENCOUNTER 2016-12-16 23:46 | Outpatient (CLI) ==
[2016-12-17 00:21] VITALS: BMI 33.0
== END 2016-12-16 23:50 | disposition short-term general hospital (02) ==
LOC: AMBL 23:46
PROVIDERS: ATTEND Internal Medicine Geriatric Medicine
DX: M54.5 Low back pain (principal)

== ENCOUNTER 2016-12-17 00:19 | Emergency (ER) | payer OTHER ==
[2016-12-17 00:21] VITALS: BP 148/78; TEMP 98.1; BMI 33.0
[2016-12-17] MEDS: DECADRON 4 MG/ML SDV IM STA (00:34)
[2016-12-17] MEDS: ZOFRAN ODT PO STA (00:34)
--- NOTE | 2016-12-17 00:35 | ED.PDOC ---
General ED Provider: Dr. VANNESSA HENDERSON Chief Complaint: Back Pain Stated Complaint: Patient states he was seen at [facility] today for acute excercerbation of chronic back pain. He was given Toradol and Flexeril. He states that he had some nausea and vomiting after. He states that his pain is still not controlled. Refused to be taken back to [facility]. Is on chronic norco and states that pain management doctors will not see him due to being on some medications that they cannot stop. Reports back pain as spasms denies any trauma. Time Seen by Physician: 00:30 Mode of Arrival: Ambulance Information Source: Patient Primary Care Provider: AIME MONROE Seen Within Last 72 Hours for Same Complaint By: ED (today relased at 1030 pm from [facility]) Nursing and Triage Documentation Reviewed and Agree: Yes Musculoskeletal Complaint Exam - Back Pain Complaint/Exam Mechanism of Injury: Reports: No known trauma Onset/Duration: today Symptoms Are: Still present Timing: Constant Initial Severity: Moderate Current Severity: Severe Location: Reports: Radiating (Left leg ) Character: Reports: Aching, Throbbing, Spasmodic Aggravating: Reports: Movements, Bending, Walking Alleviating: Reports: None Associated Signs and Symptoms: Denies: Swelling, Redness, Bruising, Fever, Weakness, Numbness, Tingling, Abdominal pain, Flank pain, Bladder incontinence, Bowel incontinence, Weight loss, Pain with weight bearing Related History: Reports: Similar episode (chronic back pain ) TAD Risk Factors: Reports: None AAA Risk Factors: Reports: None Cauda Equina Risk Factors: Reports: None Epidural Abcess Risk Factors: Reports: None Related Surgical History: Reports: None Focal Tenderness: No Paraspinal Muscle Tenderness: No Paraspinal Muscle Spasm: Yes Scoliosis: No Lordosis: No Kyphosis: No SLR Test: Right Positive Focal Weakness: Present: None Focal Sensory Loss: Present: None Differential Diagnoses: Strain, Sprain Review of Systems - Review Of Systems Constitutional: Reports: No symptoms Eyes: Reports: No symptoms Ears, Nose, Mouth, Throat: Reports: No symptoms Respiratory: Reports: No symptoms Cardiac: Reports: No symptoms GI: Reports: Nausea, Vomiting : Reports: No symptoms Musculoskeletal: Reports: Back pain Skin: Reports: No symptoms Neurological: Reports: No symptoms Endocrine: Reports: No symptoms Hematologic/Lymphatic: Reports: No symptoms All Other Systems: Reviewed and Negative Past Medical History - Past Medical History Previously Healthy: Yes Endocrine: Reports: DM 2 Cardiovascular: Reports: CAD Respiratory: Reports: None Hematological: Reports: None Gastrointestinal: Reports: None Genitourinary: Reports: Kidney stones Neuro/Psych: Reports: None Musculoskeletal: Reports: Arthritis, Back Pain Cancer: Reports: None - Surgical History General Surgical History: Reports: CABG (2014), Back Surgery (left knee surgery , right shoulder, back surgery x 4) - Family History Family History: Reports: Unknown - Social History Smoking Status: Former smoker Hx Substance Use: No Alcohol Screening: None - Immunizations Tetanus Shot up to Date: Yes Influenza Vaccine within 12 Months: No Pneumococcal Vaccine up to Date: No Physical Exam - Physical Exam Appearance: Ill-appearing, Well-nourished Pain Distress: Severe Neck: Supple Respiratory: Airway patent, Breath sounds clear, Breath sounds equal, Respirations nonlabored Cardiovascular: RRR, Pulses normal, No rub, No murmur GI/: Soft, Nontender Musculoskeletal: Normal strength, Limited ROM (of lower ext due to back pain and Spasms) Skin: Warm, Dry Neurological: Sensation intact, Motor intact, Reflexes intact, Cranial nerves intact, Alert, Oriented Psychiatric: Anxious Critical Care Note - Critical Care Note Total Time (mins): 0 Course - Course Orders, Labs, Meds: Orders Category Date Time Status Butorphanol Tartrate [Stadol] MEDS 12/17/16 00:45 Discontinued 1 mg IM ONCE STA Dexamethasone 4 mg/ml Inj [Decadron 4 mg/ml Sdv] MEDS 12/17/16 00:28 Discontinued 8 mg IM ONCE STA Ondansetron [Zofran Odt] MEDS 12/17/16 00:28 Discontinued 4 mg PO ONCE STA Medications Discontinued Medications Generic Name Dose Route Start Last Admin Trade Name Freq PRN Reason Stop Dose Admin Butorphanol Tartrate 1 mg 12/17/16 00:45 12/17/16 00:57 Stadol IM 12/17/16 00:46 1 mg ONCE STA Administration Dexamethasone Sodium Phosphate 8 mg 12/17/16 00:28 12/17/16 00:34 Decadron 4 Mg/Ml Sdv IM 12/17/16 00:29 8 mg ONCE STA Administration Ondansetron HCl 4 mg 12/17/16 00:28 12/17/16 00:34 Zofran Odt PO 12/17/16 00:29 4 mg ONCE STA Administration Vital Signs: Temp Pulse Resp BP Pulse Ox 12/17/16 00:20 98.1 F 78 22 148/78 H 96 Departure - Departure Time of Disposition: 01:15 Disposition: HOME SELF-CARE Discharge Problem: Backache Sciatic pain Qualifiers: Laterality: left Qualified Code(s): M54.32 - Sciatica, left side Instructions: Chronic Back Pain (ED), Back Pain (ED) Condition: Stable Pt referred to PMD for follow-up: Yes (1 day ) Additional Instructions: Continue home medications Follow up with PCP in 1-2 days Allergies/Adverse Reactions: Allergies No Known Allergies Allergy (Verified 11/26/16 11:03) Home Medications: Ambulatory Orders Atorvastatin Calcium [Lipitor] 40 mg PO BEDTIME 05/24/16 Lisinopril/Hydrochlorothiazide [Lisinopril-Hctz 10-12.5 mg Tab] 1 each PO DAILY 05/24/16 Canagliflozin [Invokana] 300 mg PO DAILY 06/23/16 Insulin Glargine,Hum.rec.anlog [Lantus Solostar] 75 unit SQ BID 06/23/16 Insulin Lispro [Humalog] 10 unit SUBCUT TIDWM PRN 06/23/16 Diazepam [Valium] 2 mg PO BEDTIME 06/27/16 Pantoprazole Sodium [Protonix] 40 mg PO QDAC #30 tablet. 07/01/16 Aspirin [Aspirin EC] 81 mg PO 0800 09/24/16 Metoprolol Succinate 25 mg PO DAILY 09/24/16 Ticagrelor [Brilinta] 90 mg PO BID 09/24/16 Gabapentin [Neurontin] 300 mg PO BID #60 capsule 09/25/16 Docusate Sodium [Colace] 100 mg PO DAILY PRN 11/26/16 Hydrocodone/Acetaminophen [[place] 10-325 Tablet] 1 each PO Q8HR PRN 11/26/16 Methylprednisolone [Medrol Dosepak] 4 mg PO DIRECTED #1 tab.ds.pk 11/27/16
[2016-12-17] MEDS: STADOL IM STA (00:57)
== END 2016-12-17 01:14 | disposition home or self-care (01) ==
LOC: ED 00:19
DX: M54.40 Lumbago with sciatica, unspecified side (principal); G89.29 Other chronic pain
CPT/HCPCS: 36415; 80053; 80061; 84443; 85025; 96372; 99283

== ENCOUNTER 2016-12-17 15:53 | Outpatient (CLI) | payer OTHER ==
[2016-12-17 17:24] VITALS: BMI 34.2
== END 2016-12-17 16:17 | disposition short-term general hospital (02) ==
LOC: AMBL 15:53
DX: M54.5 Low back pain (principal)

== ENCOUNTER 2016-12-17 17:13 | Emergency (ER) | payer OTHER ==
[2016-12-17 17:24] VITALS: BP 125/76; TEMP 97.4; BMI 34.2
[2016-12-17] MEDS: DILAUDID 2 MG/ML SYRINGE IM STA (19:02)
[2016-12-17] MEDS: ZOFRAN 4 MG/2 ML IM STA (19:03)
--- NOTE | 2016-12-17 19:18 | CT ---
Examination: CT lumbar spine without contrast 12/17/2016 Clinical information: Low back pain. Comparison: MRI lumbar spine 06/27/2016. TECHNIQUE: Noncontrast helical imaging was performed through the lumbar spine. 2 mm sagittal, 2 mm coronal and 3 mm axial images are submitted for review. FINDINGS: There is no acute fracture or subluxation. There are minor chronic anterior wedge deformi ties of T12, L1 and L2 which are likely developmental. Slight retrolistheses of L1 on L2, L3 on L4 a nd L5 on S1 up to 4 mm. There is multilevel ventral spondylosis. There is loss of disc height and v acuum disc phenomenon at L1-L2, L3-L4, L4-L5 and L5-S1. Dorsal discogenic endplate irregularity at L 5-S1 eccentric toward the right. Minor discogenic endplate irregularity at L3-L4 and L4-L5. There a re bridging lower thoracic ventral osteophytes. Bridging right sacroiliac ventral osteophytes. At the T12-L1 level, there is mild bilateral hypertrophic facet arthropathy. At the L1-L2 level, there is a diffuse spondylotic disc bulge eccentric right. There is modest left greater than right hypertrophic facet arthropathy. No significant central spinal canal stenosis. Th ere is minimal right neural foraminal stenosis. At the L2-L3 level, there is mild central spinal canal stenosis. A diffuse spondylotic disc bulge. Moderate bilateral hypertrophic facet arthropathy. There is mild bilateral foraminal stenosis. At the L3-L4 level, there is mild central spinal canal stenosis. A diffuse spondylotic disc bulge ec centric left with asymmetric left lateral recess stenosis. There is moderate bilateral facet hypertr ophy. There is severe left and mild-moderate right foraminal stenosis. At the L4-L5 level, there is a diffuse spondylotic disc bulge eccentric left with far left lateral en dplate osteophyte formation. There are postoperative left hemilaminotomy changes. Marked right grea ter than left hypertrophic facet arthropathy. There is no significant central spinal canal stenosis. There is severe left and moderate right foraminal stenosis. At the L5-S1 level, there is a diffuse spondylotic disc bulge eccentric right with far right lateral endplate osteophyte formation. There are postoperative laminectomy changes. Moderate right and left hypertrophic facet arthropathy. No significant central spinal canal stenosis. Marked bilateral for aminal stenosis. Impression: 1. No acute fracture or subluxation. 2. Multilevel degenerative spondylosis and hypertrophic facet arthropathy. Mild L2-L3 and L3-L4 angella tral spinal canal stenosis. 3. Multilevel foraminal stenosis as noted level by level, most severe at L5-S1. 4. Postoperative L5-S1 laminectomies. Left L4-L5 hemilaminotomy changes. 5. Slight retrolistheses of L1 on L2, L3 on L4, and L5 on S1.
--- NOTE | 2016-12-17 19:25 | ED.PDOC ---
General ED Provider: Dr. CAYETANO BOWLING-ER Chief Complaint: Back Pain Stated Complaint: my back hurts to move Time Seen by Physician: 19:00 Information Source: Patient, EMT Exam Limitations: No limitations Primary Care Provider: AIME ESPINO Nursing and Triage Documentation Reviewed and Agree: Yes Musculoskeletal Complaint Exam - Back Pain Complaint/Exam Mechanism of Injury: Reports: No known trauma Onset/Duration: several days Symptoms Are: Still present Timing: Constant Initial Severity: Mild Current Severity: Moderate Location: Reports: Discrete (lumbar spuine) Character: Reports: Dull, Aching, Throbbing, Spasmodic, Stiffness Aggravating: Reports: Movements, Lifting, Bending, Walking Alleviating: Reports: None Associated Signs and Symptoms: Denies: Swelling, Redness, Bruising, Fever, Weakness, Numbness, Tingling, Abdominal pain, Flank pain, Bladder incontinence, Bowel incontinence, Weight loss, Pain with weight bearing Related History: Reports: Previous back injury TAD Risk Factors: Reports: None AAA Risk Factors: Reports: None Cauda Equina Risk Factors: Reports: None Epidural Abcess Risk Factors: Reports: None Related Surgical History: Reports: Back Surgery Focal Tenderness: Yes Paraspinal Muscle Tenderness: Yes Paraspinal Muscle Spasm: No Scoliosis: No Lordosis: No Kyphosis: No SLR Test: Right Negative, Left Negative Hip Motion Testing Pain: Right Negative, Left Negative Focal Weakness: Present: None Focal Sensory Loss: Present: None Gait: Present: Normal Differential Diagnoses: Fracture, Herniated Disk Review of Systems - Review Of Systems Constitutional: Reports: No symptoms Eyes: Reports: No symptoms Ears, Nose, Mouth, Throat: Reports: No symptoms Respiratory: Reports: No symptoms Cardiac: Reports: No symptoms GI: Reports: No symptoms : Reports: No symptoms Musculoskeletal: Reports: Muscle stiffness Skin: Reports: No symptoms Neurological: Reports: No symptoms Endocrine: Reports: No symptoms Hematologic/Lymphatic: Reports: No symptoms All Other Systems: Reviewed and Negative Past Medical History - Past Medical History Previously Healthy: Yes Endocrine: Reports: DM 2 Cardiovascular: Reports: CAD Respiratory: Reports: None Hematological: Reports: None Gastrointestinal: Reports: None Genitourinary: Reports: Kidney stones Neuro/Psych: Reports: None Musculoskeletal: Reports: Arthritis, Back Pain Cancer: Reports: None - Surgical History General Surgical History: Reports: CABG (2014), Back Surgery (left knee surgery , right shoulder, back surgery x 4) - Family History Family History: Reports: Unknown - Social History Smoking Status: Former smoker Hx Substance Use: No Alcohol Screening: None Lives: With family - Immunizations Influenza Vaccine within 12 Months: No Pneumococcal Vaccine up to Date: No Physical Exam - Physical Exam Appearance: Well-appearing, No pain distress, Well-nourished Pain Distress: Moderate Eyes: MOUNA, EOMI, Conjunctiva clear ENT: Ears normal, Nose normal, Oropharynx normal Neck: Supple Respiratory: Airway patent, Breath sounds clear, Breath sounds equal, Respirations nonlabored Cardiovascular: RRR, Pulses normal, No rub, No murmur GI/: Soft, Nontender, No masses, Bowel sounds normal, No Organomegaly Musculoskeletal: Limited ROM Skin: Warm, Dry, Normal color Neurological: Sensation intact, Motor intact, Reflexes intact, Cranial nerves intact, Alert, Oriented Psychiatric: Affect appropriate, Mood appropriate Interpretation - Radiology Interpretation Radiology Interpretation By: Radiologist Radiology Results: Positive Exam Interpreted: CT Scan Critical Care Note - Critical Care Note Total Time (mins): 0 Course - Course Orders, Labs, Meds: Orders Category Date Time Status Hydromorphone HCl/Pf [Dilaudid 2 mg/ml Syringe] MEDS 12/17/16 18:43 Discontinued 2 mg IM ONCE STA Ondansetron HCl/Pf [Zofran 4 mg/2 ml] MEDS 12/17/16 18:43 Discontinued 4 mg IM ONCE STA CT LUMBAR SPINE W/O CONTRAST Stat RADS 12/17/16 18:43 Completed Medications Discontinued Medications Generic Name Dose Route Start Last Admin Trade Name Freq PRN Reason Stop Dose Admin Hydromorphone HCl 2 mg 12/17/16 18:43 12/17/16 19:02 Dilaudid 2 Mg/Ml Syringe IM 12/17/16 18:44 2 mg ONCE STA Administration Ondansetron HCl 4 mg 12/17/16 18:43 12/17/16 19:03 Zofran 4 Mg/2 Ml IM 12/17/16 18:44 4 mg ONCE STA Administration Vital Signs: Temp Pulse Resp BP Pulse Ox 12/17/16 17:14 97.4 F L 76 20 125/76 94 L Departure - Departure Time of Disposition: 19:25 Disposition: HOME SELF-CARE Discharge Problem: Backache Instructions: Chronic Back Pain (ED) Condition: Good Pt referred to PMD for follow-up: Yes Additional Instructions: keep appt with dr espino this week Allergies/Adverse Reactions: Allergies No Known Allergies Allergy (Verified 12/17/16 18:12) Home Medications: Ambulatory Orders Atorvastatin Calcium [Lipitor] 40 mg PO BEDTIME 05/24/16 Lisinopril/Hydrochlorothiazide [Lisinopril-Hctz 10-12.5 mg Tab] 1 each PO DAILY 05/24/16 Canagliflozin [Invokana] 300 mg PO DAILY 06/23/16 Insulin Glargine,Hum.rec.anlog [Lantus Solostar] 75 unit SQ BID 06/23/16 Insulin Lispro [Humalog] 10 unit SUBCUT TIDWM PRN 06/23/16 Diazepam [Valium] 2 mg PO BEDTIME 06/27/16 Pantoprazole Sodium [Protonix] 40 mg PO QDAC #30 tablet. 07/01/16 Aspirin [Aspirin EC] 81 mg PO 0800 09/24/16 Metoprolol Succinate 25 mg PO DAILY 09/24/16 Ticagrelor [Brilinta] 90 mg PO BID 09/24/16 Gabapentin [Neurontin] 300 mg PO BID #60 capsule 09/25/16 Docusate Sodium [Colace] 100 mg PO DAILY PRN 11/26/16 Hydrocodone/Acetaminophen [[place] 10-325 Tablet] 1 each PO Q8HR PRN 11/26/16 Disposition Discussed With: Patient
== END 2016-12-17 19:30 | disposition home or self-care (01) ==
LOC: ED 17:13
DX: M54.5 Low back pain (principal)
CPT/HCPCS: 96372; 99283

== ENCOUNTER 2016-12-25 22:03 | Outpatient (CLI) | payer OTHER ==
[2016-12-23 13:58] VITALS: BMI 34.9
== END 2016-12-25 22:04 | disposition home or self-care (01) ==
LOC: AMBL 22:03
PROVIDERS: ATTEND Internal Medicine Geriatric Medicine
DX: R07.9 Chest pain, unspecified (principal); Z95.1 Presence of aortocoronary bypass graft; Z95.5 Presence of coronary angioplasty implant and graft

== ENCOUNTER 2017-01-26 08:26 | Emergency (ER) | payer OTHER ==
[2017-01-26 08:34] VITALS: BP 139/84; TEMP 98.2; BMI 34.7
--- NOTE | 2017-01-26 08:36 | ED.PDOC ---
General ED Provider: Dr. AMELIA LESTER Chief Complaint: Abscess Stated Complaint: Abscess L groin; started 2 days ago Time Seen by Physician: 08:40 Mode of Arrival: Walk-In Information Source: Patient Primary Care Provider: AIME MONROE Nursing and Triage Documentation Reviewed and Agree: Yes Review of Systems - Review Of Systems Constitutional: Reports: No symptoms Skin: Reports: Change in color, Lesions (L groin; redness, swelling and tenderness) All Other Systems: Reviewed and Negative Past Medical History - Past Medical History Previously Healthy: Yes Endocrine: Reports: DM 2 Cardiovascular: Reports: CAD Respiratory: Reports: None Hematological: Reports: None Gastrointestinal: Reports: None Genitourinary: Reports: Kidney stones Neuro/Psych: Reports: None Musculoskeletal: Reports: Arthritis, Back Pain Cancer: Reports: None - Surgical History General Surgical History: Reports: CABG (2013), Back Surgery (left knee surgery , right shoulder, back surgery x 4) - Family History Family History: Reports: Unknown - Social History Smoking Status: Former smoker Hx Substance Use: No Alcohol Screening: None - Immunizations Influenza Vaccine within 12 Months: No Pneumococcal Vaccine up to Date: No Physical Exam - Physical Exam Appearance: Well-appearing Pain Distress: Moderate Skin: Warm, Dry, Normal color (Exscept Left groin/upper thigh - swelling approx 2 X 2 cm, marked erythema, no floculance) Neurological: Sensation intact, Motor intact Psychiatric: Affect appropriate, Mood appropriate Critical Care Note - Critical Care Note Total Time (mins): 7 Course - Course Vital Signs: Temp Pulse Resp BP Pulse Ox 01/26/17 08:26 98.2 F 79 20 139/84 97 Departure - Departure Time of Disposition: 08:44 Disposition: HOME SELF-CARE Discharge Problem: Cellulitis and abscess of left leg Instructions: Cellulitis (ED) Condition: Good Pt referred to PMD for follow-up: Yes (Call for appointment) Additional Instructions: Take antibiotic as prescribed; use warm compresses every 2 hours (when able) next 24 hours. Follow up with primary care provider. Return to ER if markedly worsening in next 36 hours. Prescriptions: Cephalexin [Keflex] 500 mg PO Q8HR #30 capsule Allergies/Adverse Reactions: Allergies ketorolac [From Toradol] Adverse Reaction (Verified 01/26/17 08:29) orphenadrine [From Norflex] Adverse Reaction (Verified 01/26/17 08:29) Home Medications: Ambulatory Orders Atorvastatin Calcium [Lipitor] 40 mg PO BEDTIME 05/24/16 Lisinopril/Hydrochlorothiazide [Lisinopril-Hctz 10-12.5 mg Tab] 1 each PO DAILY 05/24/16 Canagliflozin [Invokana] 300 mg PO DAILY 06/23/16 Insulin Glargine,Hum.rec.anlog [Lantus Solostar] 80 unit SQ BID 06/23/16 Insulin Lispro [Humalog] 10 unit SUBCUT TIDWM PRN 06/23/16 Diazepam [Valium] 2 mg PO BEDTIME 06/27/16 Pantoprazole Sodium [Protonix] 40 mg PO QDAC #30 tablet. 07/01/16 Aspirin [Aspirin EC] 81 mg PO 0800 09/24/16 Metoprolol Succinate 25 mg PO DAILY 09/24/16 Ticagrelor [Brilinta] 90 mg PO BID 09/24/16 Gabapentin [Neurontin] 300 mg PO BID #60 capsule 09/25/16 Docusate Sodium [Colace] 100 mg PO DAILY PRN 11/26/16 Hydrocodone/Acetaminophen [[place] 10-325 Tablet] 1 each PO Q8HR #6 tablet Cephalexin [Keflex] 500 mg PO Q8HR #30 capsule 01/26/17
== END 2017-01-26 08:57 | disposition home or self-care (01) ==
LOC: ED 08:26
DX: L02.416 Cutaneous abscess of left lower limb (principal); L03.116 Cellulitis of left lower limb
CPT/HCPCS: 99282

== ENCOUNTER 2017-02-16 13:52 | Outpatient (CLI) | END 2017-02-16 13:53 | disposition short-term general hospital (02) | LOC: AMBL 13:52 | PROVIDERS: ATTEND Internal Medicine | DX: S39.92XA Unspecified injury of lower back, initial encounter (principal); S09.90XA Unspecified injury of head, initial encounter; S19.9XXA Unspecified injury of neck, initial encounter; W19.XXXA Unspecified fall, initial encounter ==

== ENCOUNTER 2017-02-22 12:44 | Emergency (ER) ==
[2017-02-22 12:47] VITALS: BP 123/81; TEMP 98.2; BMI 34.9
[2017-02-22] MEDS ORDERED: STADOL IM STA (13:49)
[2017-02-22] MEDS ORDERED: VALIUM PO STA (13:49)
--- NOTE | 2017-02-22 14:03 | ED.PDOC ---
General ED Provider: Dr. VANNESSA HENDERSON Chief Complaint: Back Pain Stated Complaint: patient is a 51 year old male who states that as he sat down at [employer] he felt spasms start in his back. He also states he was suppose to have surgery a month ago but they cancelled due to having an abscess in groin that he had to have surgery on. Dr Monroe also confirms history. Time Seen by Physician: 13:49 Mode of Arrival: Walk-In Information Source: Patient Exam Limitations: No limitations Primary Care Provider: AIME MONROE Nursing and Triage Documentation Reviewed and Agree: Yes Musculoskeletal Complaint Exam - Back Pain Complaint/Exam Mechanism of Injury: Reports: No known trauma Onset/Duration: 1 day Symptoms Are: Still present Timing: Constant Initial Severity: Moderate Current Severity: Moderate Location: Reports: Diffuse Character: Reports: Spasmodic Aggravating: Reports: Movements Alleviating: Reports: None Associated Signs and Symptoms: Denies: Swelling, Redness, Bruising, Fever, Weakness, Numbness, Tingling, Abdominal pain, Flank pain, Bladder incontinence, Bowel incontinence, Weight loss, Pain with weight bearing Related History: Reports: Similar episode TAD Risk Factors: Reports: None AAA Risk Factors: Reports: None Cauda Equina Risk Factors: Reports: None Epidural Abcess Risk Factors: Reports: None Related Surgical History: Reports: None Focal Tenderness: Yes Paraspinal Muscle Tenderness: Yes Paraspinal Muscle Spasm: Yes Scoliosis: No Lordosis: No Kyphosis: No SLR Test: Right Positive, Left Positive Hip Motion Testing Pain: Right Negative, Left Negative Focal Weakness: Present: None Focal Sensory Loss: Present: None Gait: Present: Abnormal (due to pain ) Back Picture: 1 - pain and spams. Differential Diagnoses: Strain, Sprain Review of Systems - Review Of Systems Constitutional: Reports: No symptoms Eyes: Reports: No symptoms Ears, Nose, Mouth, Throat: Reports: No symptoms Respiratory: Reports: No symptoms Cardiac: Reports: No symptoms GI: Reports: No symptoms : Reports: No symptoms Musculoskeletal: Reports: Back pain, Muscle stiffness Skin: Reports: No symptoms Neurological: Reports: No symptoms Endocrine: Reports: No symptoms Hematologic/Lymphatic: Reports: No symptoms All Other Systems: Reviewed and Negative Past Medical History - Past Medical History Previously Healthy: Yes Endocrine: Reports: DM 2 Cardiovascular: Reports: CAD Respiratory: Reports: None Hematological: Reports: None Gastrointestinal: Reports: None Genitourinary: Reports: Kidney stones Neuro/Psych: Reports: None Musculoskeletal: Reports: Arthritis, Back Pain Cancer: Reports: None - Surgical History General Surgical History: Reports: CABG (2014), Back Surgery (left knee surgery , right shoulder, back surgery x 4) - Family History Family History: Reports: Unknown - Social History Smoking Status: Former smoker Hx Substance Use: No Alcohol Screening: None - Immunizations Influenza Vaccine within 12 Months: No Pneumococcal Vaccine up to Date: No Physical Exam - Physical Exam Appearance: Ill-appearing Ill-appearing: Moderate Pain Distress: Severe Neck: Supple Respiratory: Airway patent, Breath sounds clear, Breath sounds equal, Respirations nonlabored Cardiovascular: RRR, Pulses normal, No rub, No murmur GI/: Soft, Nontender, No masses, Bowel sounds normal, No Organomegaly Musculoskeletal: Limited ROM Skin: Warm Neurological: Sensation intact, Motor intact, Alert, Oriented Psychiatric: Anxious Critical Care Note - Critical Care Note Total Time (mins): 0 Course - Course Orders, Labs, Meds: Orders Category Date Time Status Butorphanol Tartrate [Stadol] MEDS 02/22/17 13:49 Discontinued 2 mg IM ONCE STA Diazepam [Valium] MEDS 02/22/17 13:49 Discontinued 5 mg PO ONCE STA Medications Discontinued Medications Generic Name Dose Route Start Last Admin Trade Name Freq PRN Reason Stop Dose Admin Butorphanol Tartrate 2 mg 02/22/17 13:49 02/22/17 14:10 Stadol IM 02/22/17 13:50 2 mg ONCE STA Administration Diazepam 5 mg 02/22/17 13:49 02/22/17 14:10 Valium PO 02/22/17 13:50 5 mg ONCE STA Administration Vital Signs: Temp Pulse Resp BP Pulse Ox 02/22/17 12:44 98.2 F 82 20 123/81 95 Departure - Departure Time of Disposition: 14:39 Disposition: HOME SELF-CARE Discharge Problem: Backache Instructions: Back Pain (ED) Condition: Stable Pt referred to PMD for follow-up: Yes Additional Instructions: Follow up with PCP in 3 days Take steroids as prescribed. Prescriptions: Methylprednisolone [Medrol Dosepak] 4 mg PO DIRECTED #1 pkg Allergies/Adverse Reactions: Allergies ketorolac [From Toradol] Adverse Reaction (Verified 02/22/17 12:47) orphenadrine [From Norflex] Adverse Reaction (Verified 02/22/17 12:47) Home Medications: Ambulatory Orders Atorvastatin Calcium [Lipitor] 40 mg PO BEDTIME 05/24/16 Lisinopril/Hydrochlorothiazide [Lisinopril-Hctz 10-12.5 mg Tab] 1 each PO DAILY 05/24/16 Canagliflozin [Invokana] 300 mg PO DAILY 06/23/16 Insulin Glargine,Hum.rec.anlog [Lantus Solostar] 80 unit SQ BID 06/23/16 Insulin Lispro [Humalog] 10 unit SUBCUT TIDWM PRN 06/23/16 Diazepam [Valium] 2 mg PO BEDTIME 06/27/16 Pantoprazole Sodium [Protonix] 40 mg PO QDAC #30 tablet. 07/01/16 Aspirin [Aspirin EC] 81 mg PO 0800 09/24/16 Ticagrelor [Brilinta] 90 mg PO BID 09/24/16 Gabapentin [Neurontin] 300 mg PO BID #60 capsule 09/25/16 Docusate Sodium [Colace] 100 mg PO DAILY PRN 11/26/16 Methylprednisolone [Medrol Dosepak] 4 mg PO DIRECTED #1 pkg 02/22/17 Disposition Discussed With: Patient, Family
== END 2017-02-22 15:54 | disposition home or self-care (01) ==
LOC: ED 12:44
DX: M54.9 Dorsalgia, unspecified (principal)
CPT/HCPCS: 96372; 99283

== ENCOUNTER 2017-03-28 09:42 | Emergency (ER) ==
[2017-03-28 09:50] VITALS: BP 128/86; TEMP 97; BMI 34.5
--- NOTE | 2017-03-28 09:56 | ED.PDOC ---
General ED Provider: Dr. VANNESSA HENDERSON Chief Complaint: Earache Stated Complaint: Patient is a 51 year old male who has a history of Shingles 3 months ago on the chest and neck who complains of left ear lobe pain with redness and swelling. Worried about shingles recurrence. Time Seen by Physician: 09:50 Mode of Arrival: Walk-In Information Source: Patient Exam Limitations: No limitations Primary Care Provider: AIME MONROE Nursing and Triage Documentation Reviewed and Agree: Yes Reviewed sepsis parameters & appropriate labs ordered?: Yes System Inflammatory Response Syndrome: Not Applicable Sepsis Protocol: For patient's 13 years and over: Temp is 96.8 and below OR 101 and greater Pulse >90 BPM Resp >20/minute Acutely Altered Mental Status Are patient's symptoms suggestive of a new infection, such as: -Pneumonia -Skin, Soft Tissue -Endocarditis -UTI -Bone, Joint Infection -Implantable Device -Acute Abdominal Infection -Wound Infection -Meningitis -Blood Stream Catheter Infection -Unknown System Inflammatory Response Syndrome: Not Applicable Skin Complaint Exam - Skin/Soft Tissue Complaint/Exam Onset/Duration: 1 day Symptoms Are: Still present Timing: Constant Initial Severity: Moderate Current Severity: Severe Location: Left eye Character: Reports: Redness, Swelling, Raised, Painful Aggravating: Reports: Touch Alleviating: Reports: None Associated Signs and Symptoms: Denies: Fever, Chills, Itching, Drainage, Bruising, Tenderness, Red streaks, Joint swelling Related History: Reports: Similar episode (with shingles on the left shoulder and neck few months ago ) Related Surgical History: Reports: None Recent Exposure to Others w/Similar Symptoms: Yes Skin Findings: Present: Skin lesion Joint Tenderness Present: No Differential Diagnoses: Infection Review of Systems - Review Of Systems Constitutional: Reports: No symptoms Eyes: Reports: No symptoms Ears, Nose, Mouth, Throat: Reports: Ear pain (left) Respiratory: Reports: No symptoms Cardiac: Reports: No symptoms GI: Reports: No symptoms : Reports: No symptoms Musculoskeletal: Reports: No symptoms Skin: Reports: Rash (erythema but not blisters noted yest ) Neurological: Reports: Anxiety Endocrine: Reports: No symptoms Hematologic/Lymphatic: Reports: No symptoms All Other Systems: Reviewed and Negative Past Medical History - Past Medical History Previously Healthy: Yes Endocrine: Reports: DM 2 Cardiovascular: Reports: CAD Respiratory: Reports: None Hematological: Reports: None Gastrointestinal: Reports: None Genitourinary: Reports: Kidney stones Neuro/Psych: Reports: None Musculoskeletal: Reports: Arthritis, Back Pain Cancer: Reports: None Other Pertinent Past Medical History: Shingles - Surgical History General Surgical History: Reports: CABG (2014), Back Surgery (left knee surgery , right shoulder, back surgery x 4) - Family History Family History: Reports: Unknown - Social History Smoking Status: Former smoker Hx Substance Use: No Alcohol Screening: None - Immunizations Tetanus Shot up to Date: Yes Influenza Vaccine within 12 Months: No Pneumococcal Vaccine up to Date: No Physical Exam - Physical Exam Appearance: Ill-appearing, Well-nourished Ill-appearing: Mild Pain Distress: Severe ENT: Erythema (of the left ear with tenderness to palpation. ) Neck: Supple Respiratory: Airway patent, Breath sounds clear, Breath sounds equal, Respirations nonlabored Cardiovascular: RRR, Pulses normal, No rub, No murmur GI/: Soft, Nontender, No masses, Bowel sounds normal, No Organomegaly Skin: Warm, Dry Neurological: Sensation intact, Alert, Oriented Psychiatric: Anxious Critical Care Note - Critical Care Note Total Time (mins): 0 Course - Course Vital Signs: Temp Pulse Resp BP Pulse Ox 03/28/17 09:43 97.0 F L 85 22 128/86 96 Departure - Departure Time of Disposition: 10:08 Disposition: HOME SELF-CARE Discharge Problem: Shingles Qualifiers: Herpes zoster complications: without complications Qualified Code(s): B02.9 - Zoster without complications Instructions: Shingles (ED) Condition: Fair Pt referred to PMD for follow-up: Yes IPMP verified?: No Additional Instructions: Take medications as prescribed Follow up with PCP next week return if worse Prescriptions: Hydrocodone/Acetaminophen [[place] 5-325 Tablet] 1 tab PO Q6HR PRN #20 tablet PRN Reason: PAIN Acyclovir 800 mg PO 5XD #50 tablet Allergies/Adverse Reactions: Allergies butorphanol [From Stadol] Adverse Reaction (Verified 03/28/17 09:51) ketorolac [From Toradol] Adverse Reaction (Verified 03/28/17 09:51) orphenadrine [From Norflex] Adverse Reaction (Verified 03/28/17 09:51) Home Medications: Ambulatory Orders Atorvastatin Calcium [Lipitor] 40 mg PO BEDTIME 05/24/16 Lisinopril/Hydrochlorothiazide [Lisinopril-Hctz 10-12.5 mg Tab] 10 each PO DAILY 05/24/16 Canagliflozin [Invokana] 300 mg PO DAILY 06/23/16 Insulin Glargine,Hum.rec.anlog [Lantus Solostar] 80 unit SQ BID 06/23/16 Insulin Lispro [Humalog] 10 unit SUBCUT TIDWM PRN 06/23/16 Diazepam [Valium] 2 mg PO BEDTIME 06/27/16 Pantoprazole Sodium [Protonix] 40 mg PO QDAC #30 tablet. 07/01/16 Aspirin [Aspirin EC] 81 mg PO 0800 09/24/16 Ticagrelor [Brilinta] 90 mg PO BID 09/24/16 Docusate Sodium [Colace] 100 mg PO DAILY PRN 11/26/16 Acyclovir 800 mg PO 5XD #50 tablet 03/28/17 Gabapentin [Neurontin] 300 mg PO TID 03/28/17 Hydrocodone/Acetaminophen [[place] 5-325 Tablet] 1 tab PO Q6HR PRN #20 tablet
== END 2017-03-28 10:20 | disposition home or self-care (01) ==
LOC: ED 09:42
DX: B02.9 Zoster without complications (principal)
CPT/HCPCS: 99282

== ENCOUNTER 2017-04-01 11:47 | Inpatient (IN) | payer OTHER ==
[2017-04-01 11:54] VITALS: BMI 34.7
--- NOTE | 2017-04-01 13:29 | CT ---
EXAM: CT chest without contrast HISTORY: Cough with nausea and vomiting COMPARISON: Chest x-ray 11/26/2016 and multiple priors TECHNIQUE: Serial axial images of the chest were obtained from the lung apices to the upper abdomen without contrast. These were viewed in multiple planes. FINDINGS: The thyroid is normal. The visualized vessels are unremarkable without aneurysm or stenos is. The heart is normal in size without pericardial effusion. There are no pathologically enlarged mediastinal or hilar lymph nodes. There are changes consistent with CABG. There is no pneumothorax or pleural effusion. There is no consolidation, nodule or mass. There is n o abnormal ground-glass. The airways are patent. The osseous structures demonstrate mild degenerati ve disease. The limited views of the upper abdomen are unremarkable. IMPRESSION: No acute cardiopulmonary process. Changes of previous CABG are present.
--- NOTE | 2017-04-01 13:32 | CT ---
EXAM: CT ABDOMEN AND PELVIS HISTORY: Abdominal pain TECHNIQUE: CT abdomen and pelvis without intravenous contrast. Images were reconstructed using 5 mm section thickness. Reformations were prepared. COMPARISON: FINDINGS: Diagnostic limitations exist without including contrast enhanced images. No focal hepatic or splenic lesions identified. Gallbladder, pancreas and adrenal glands within normal limits. Small cyst of t he right renal cortex medially. No hydronephrosis or ureteral obstruction. Minimal atherosclerotic disease. Stomach within normal limits. Normal appendix. General bowel gas pattern and appearance is within no rmal limits. Urinary bladder and prostate are within normal limits. There is no ascites or inflamma tory infiltration of the abdominal fat. Ventral abdominal wall is intact without herniation. There is moderate degenerative disc and facet di sease of the lower spine. Lung bases are clear. No pneumoperitoneum. IMPRESSION: 1. No acute intra-abdominal or pelvic abnormality.
--- NOTE | 2017-04-01 14:37 | ED.PDOC ---
General ED Provider: Dr. BERNA ENAMORADO Chief Complaint: Nausea/Vomiting Stated Complaint: nausea , vomiting Time Seen by Physician: 12:00 Mode of Arrival: Walk-In Information Source: Patient Exam Limitations: No limitations Primary Care Provider: AIME MONROE Nursing and Triage Documentation Reviewed and Agree: Yes Reviewed sepsis parameters & appropriate labs ordered?: Yes System Inflammatory Response Syndrome: Not Applicable Sepsis Protocol: For patient's 13 years and over: Temp is 96.8 and below OR 101 and greater Pulse >90 BPM Resp >20/minute Acutely Altered Mental Status Are patient's symptoms suggestive of a new infection, such as: -Pneumonia -Skin, Soft Tissue -Endocarditis -UTI -Bone, Joint Infection -Implantable Device -Acute Abdominal Infection -Wound Infection -Meningitis -Blood Stream Catheter Infection -Unknown System Inflammatory Response Syndrome: Not Applicable GI Complaint Exam - Abdominal Pain Complaint/Exam Onset: Gradual Duration: 2 days Symptoms Are: Still present Timing: Intermittent Initial Severity: Moderate Current Severity: Mild Location of Pain: Diffuse Character: Reports: Dull Aggravating: Reports: None Alleviating: Reports: Vomiting Associated Signs and Symptoms: Reports: Nausea, Vomiting. Denies: Diaphoresis, Fever, Cough, Chest pain, Dizziness, Back pain, Constipation, Blood in stool, Dysuria, Urinary frequency, Decreased urine output, Decreased appetite, Discharge, Diarrhea, Decreased activity Related History: Reports: Similar episode AAA Risk Factors: Reports: Hypertension Cardiac Risk Factors: Reports: DM, Hypertension Testicular Torsion Risk Factors: Reports: None Surgical Obstruction Risk Factors: Reports: None Related Surgical History: Reports: None Abdominal Findings: Present: None Differential Diagnoses: Appendicitis, Bowel Obstruction, Constipation, Diverticulitis, Irritable Bowel Syndrome, Pneumonia Quality Indicators for AMI: EKG in 10min. Quality Indicators for Cardiac Chest Pain: EKG in 10min. Review of Systems - Review Of Systems Constitutional: Reports: Malaise, Weakness Eyes: Reports: No symptoms Ears, Nose, Mouth, Throat: Reports: No symptoms Respiratory: Reports: No symptoms Cardiac: Reports: No symptoms GI: Reports: Nausea, Vomiting : Reports: No symptoms Musculoskeletal: Reports: No symptoms Skin: Reports: No symptoms Neurological: Reports: No symptoms Endocrine: Reports: No symptoms Hematologic/Lymphatic: Reports: No symptoms All Other Systems: Reviewed and Negative Past Medical History - Past Medical History Previously Healthy: Yes Endocrine: Reports: DM 2 Cardiovascular: Reports: CAD Respiratory: Reports: None Hematological: Reports: None Gastrointestinal: Reports: None Genitourinary: Reports: Kidney stones Neuro/Psych: Reports: None Musculoskeletal: Reports: Arthritis, Back Pain Cancer: Reports: None Other Pertinent Past Medical History: Shingles - Surgical History General Surgical History: Reports: CABG (2014), Back Surgery (left knee surgery , right shoulder, back surgery x 4) - Family History Family History: Reports: Unknown - Social History Smoking Status: Former smoker Hx Substance Use: No Alcohol Screening: None - Immunizations Influenza Vaccine within 12 Months: No Pneumococcal Vaccine up to Date: No Physical Exam - Physical Exam Appearance: Ill-appearing Ill-appearing: Mild Pain Distress: Mild Eyes: MOUNA, EOMI, Conjunctiva clear ENT: Dry mucosa Respiratory: Airway patent, Breath sounds clear, Breath sounds equal, Respirations nonlabored Cardiovascular: RRR, Pulses normal, No rub, No murmur GI/: Soft, Nontender, No masses, Bowel sounds normal, No Organomegaly Musculoskeletal: Normal strength, ROM intact, No edema, No calf tenderness Skin: Warm, Dry, Normal color Neurological: Sensation intact, Motor intact, Reflexes intact, Cranial nerves intact, Alert, Oriented Psychiatric: Affect appropriate, Mood appropriate Physician Notification - Case Discussed Physician Notified: pmd Time of Notification: 14:44 Admit To: Inpatient Critical Care Note - Critical Care Note Total Time (mins): 0 Course - Course Hematology/Chemistry: 04/01/17 12:30 04/01/17 12:50 Orders, Labs, Meds: Lab Review 04/01/17 04/01/17 04/01/17 12:30 12:50 12:50 WBC 7.29 RBC 4.83 Hgb 14.8 Hct 42.8 MCV 88.6 MCH 30.6 MCHC 34.6 RDW Coeff of Maritza 13.2 Plt Count 252 Immature Gran % (Auto) 0.3 Neut % (Auto) 64.3 Lymph % (Auto) 20.2 [place] % (Auto) 9.7 Eos % (Auto) 4.7 Baso % (Auto) 0.8 Immature Gran # (Auto) 0.0 Neut # 4.7 Lymph # 1.5 [place] # 0.7 Eos # 0.3 Baso # 0.1 Sodium 135 L Potassium 4.2 Chloride 102 Carbon Dioxide 21 Anion Gap 16.2 BUN 17 Creatinine 1.11 H Estimated GFR (MDRD) 69.00 BUN/Creatinine Ratio 15.31 Glucose 362 H Lactic Acid Calcium 9.7 Total Bilirubin 0.5 AST 24 ALT 29 Alkaline Phosphatase 74 Total Creatine Kinase 61 Troponin I < 0.0100 Total Protein 7.8 Albumin 3.8 Globulin 4.0 Albumin/Globulin Ratio 0.95 Procalcitonin 0.05 Influenza A (Rapid) Influenza B (Rapid) 04/01/17 04/01/17 12:50 13:20 WBC RBC Hgb Hct MCV MCH MCHC RDW Coeff of Maritza Plt Count Immature Gran % (Auto) Neut % (Auto) Lymph % (Auto) [place] % (Auto) Eos % (Auto) Baso % (Auto) Immature Gran # (Auto) Neut # Lymph # [place] # Eos # Baso # Sodium Potassium Chloride Carbon Dioxide Anion Gap BUN Creatinine Estimated GFR (MDRD) BUN/Creatinine Ratio Glucose Lactic Acid 30.3 H Calcium Total Bilirubin AST ALT Alkaline Phosphatase Total Creatine Kinase Troponin I Total Protein Albumin Globulin Albumin/Globulin Ratio Procalcitonin Influenza A (Rapid) Negative by naat Influenza B (Rapid) Negative by naat Orders Category Date Time Status EKG-(ED ONLY) Stat CARDIO 04/01/17 12:32 Completed BLOOD CULTURE (ED ONLY) Stat LAB 04/01/17 12:50 Received CBC W/ AUTO DIFF Stat LAB 04/01/17 12:30 Completed COMPREHENSIVE METABOLIC PANEL Stat LAB 04/01/17 12:50 Completed CREATINE KINASE Stat LAB 04/01/17 12:50 Completed FLU A/B MOLECULAR Stat LAB 04/01/17 13:20 Completed LACTIC ACID Stat LAB 04/01/17 12:50 Completed MOLECULAR GROUP A STREP Stat LAB 04/01/17 13:20 Completed PROCALCITONIN Stat LAB 04/01/17 12:50 Completed TROPONIN I Stat LAB 04/01/17 12:50 Completed Insulin Regular, Human [Humulin R] MEDS 04/01/17 14:43 Stat See Protocol SUBCUT ONCE STA CT ABDOMEN/PELVIS WO CONTRAST Stat RADS 04/01/17 12:[address] CHEST W/O CONTRAST Stat RADS 04/01/17 12:32 Completed Vital Signs: Temp Pulse Resp BP Pulse Ox 04/01/17 11:49 98.3 F 94 H 20 121/83 95 Departure - Departure Time of Disposition: 14:44 Disposition: ADMITTED INPATIENT Discharge Problem: Nausea, Vomiting, Dehydration Uncontrolled diabetes mellitus Qualifiers: Diabetes mellitus type: type 1 Instructions: Abdominal Pain (ED) Condition: Good Pt referred to PMD for follow-up: Yes IPMP verified?: Yes Additional Instructions: Please call your Family Physician as soon as possible to schedule a follow-up appointment. Allergies/Adverse Reactions: Allergies butorphanol [From Stadol] Adverse Reaction (Verified 04/01/17 11:55) ketorolac [From Toradol] Adverse Reaction (Verified 04/01/17 11:55) orphenadrine [From Norflex] Adverse Reaction (Verified 04/01/17 11:55) Home Medications: Ambulatory Orders Atorvastatin Calcium [Lipitor] 40 mg PO BEDTIME 05/24/16 Lisinopril/Hydrochlorothiazide [Lisinopril-Hctz 10-12.5 mg Tab] 10 each PO DAILY 05/24/16 Canagliflozin [Invokana] 300 mg PO DAILY 06/23/16 Insulin Glargine,Hum.rec.anlog [Lantus Solostar] 80 unit SQ BID 06/23/16 Insulin Lispro [Humalog] 10 unit SUBCUT TIDWM PRN 06/23/16 Diazepam [Valium] 2 mg PO BEDTIME 06/27/16 Pantoprazole Sodium [Protonix] 40 mg PO QDAC #30 tablet. 07/01/16 Aspirin [Aspirin EC] 81 mg PO 0800 09/24/16 Ticagrelor [Brilinta] 90 mg PO BID 09/24/16 Docusate Sodium [Colace] 100 mg PO DAILY PRN 11/26/16 Acyclovir 800 mg PO 5XD #50 tablet 03/28/17 Gabapentin [Neurontin] 300 mg PO TID 03/28/17 Hydrocodone/Acetaminophen [[place] 5-325 Tablet] 1 tab PO Q6HR PRN #20 tablet Disposition Discussed With: Patient
[2017-04-01] MEDS ORDERED: HUMULIN R SUBCUT STA (14:43)
[2017-04-01] MEDS ORDERED: COLACE PO PRN (15:47)
[2017-04-01] MEDS ORDERED: HUMALOG SUBCUT PRN (15:47)
[2017-04-01] MEDS ORDERED: SODIUM CHLORIDE 1,000 ML IV SCH (16:00)
[2017-04-01] MEDS: ZOFRAN 4 MG/2 ML IVP PRN (16:41)
[2017-04-01] MEDS: ZOVIRAX PO SCH ×2 (16:43→20:12)
[2017-04-01] MEDS: DECADRON 4 MG/ML SDV IM SCH (16:45)
[2017-04-01] MEDS ORDERED: ACYCLOVIR 800 MG PO SCH (17:00)
[2017-04-01] MEDS: HUMULIN R SUBCUT PRN ×2 (17:01→20:13)
[2017-04-01] MEDS: NORCO 5-325 PO PRN (19:57)
[2017-04-01] MEDS: BRILINTA PO SCH (20:12)
[2017-04-01] MEDS: LIPITOR PO SCH (20:12)
[2017-04-01] MEDS: NEURONTIN PO SCH (20:13)
[2017-04-01] MEDS: VALIUM PO SCH (20:13)
[2017-04-01] MEDS ORDERED: NON-FORMULARY MEDICATION (Atorvastatin Calcium [Lipitor] 40 MG) PO SCH (21:00)
[2017-04-02] MEDS ORDERED: SODIUM CHLORIDE 500 ML IV SCH (00:01)
[2017-04-02] MEDS ORDERED: SODIUM CHLORIDE 1,000 ML IV ONE (01:14)
[2017-04-02] MEDS: NORCO 5-325 PO PRN (04:46)
[2017-04-02] MEDS: ZOFRAN 4 MG/2 ML IVP PRN ×2 (04:46→17:11)
[2017-04-02] MEDS: ZOVIRAX PO SCH ×5 (05:34→20:04)
[2017-04-02] MEDS: PROTONIX PO SCH (05:35)
[2017-04-02] MEDS: HUMULIN R SUBCUT PRN ×3 (06:02→20:43)
--- NOTE | 2017-04-02 09:30 | PN ---
DATE OF SERVICE: 04/01/17 SUBJECTIVE: 51 year old white male was hospitalized with mild abdominal distress and acute gastroenteritis type of symptoms. REVIEW OF SYSTEMS: CONSTITUTIONAL: No night sweats. Fatigue. No fever or chills. Weakness. HEENT: Eyes: No visual changes. No eye pain. No eye discharge. ENT: No runny nose. No epistaxis. No sinus pain. No sore throat. No odynophagia. No congestion. RESPIRATORY: Mild cough, No congestion. No hemoptysis. No shortness of breath. CARDIOVASCULAR: No angina symptoms. No CHF symptoms. No atypical chest pain for CAD. No palpitations. No orthopnea. NO PND. GASTROINTESTINAL: No abdominal pain. Nausea and vomiting. Diarrhea. No hematemesis. No hematochezia.Poor appetite. GENITOURINARY: No urgency. No frequency. No dysuria. No hematuria. No obstructive symptoms. No discharge. No pain. No significant abnormal bleeding. MUSCULOSKELETAL: No musculoskeletal pain; no joint swelling. Generalized aches and pains. NEUROLOGICAL: No headache. No neck pain. No syncope. No seizures. No dizziness. PSYCHIATRIC: Not anxious. No depression. No suicidal thoughts. No homicidal thoughts. SKIN: No rash. No lesions. No wounds. ENDOCRINE: No unexplained weight loss. No weight gain. HEMATOLOGIC/LYMPHATIC: No anemia. No purpura. No petechiae. No prolonged or excessive bleeding. No palpable lymph nodes. PHYSICAL EXAMINATION: GENERAL: The patient is oriented to time, place and person. HEENT: Head normocephalic, atraumatic. Eyes: Extraocular muscles are intact. Pupils are equal, round and reactive to light and accommodation. Ears: No lesions. Nose appeared normal. Throat: No exudate or erythema. NECK: Supple. No JVD, no carotid bruit. No lymphadenopathy or thyromegaly. LUNGS: Clear to auscultation. Percussion note normal. Chest symmetrical. HEART: S1, S2, no S3. No murmurs. No cyanosis or clubbing. No ascites. Pulses: Dorsalis pedis and posterior tibial pulses +1 to +2 both sides. ABDOMEN: Soft. Nontender. Bowel sounds active. No CVA tenderness. No mass felt. EXTREMITIES: No edema. Full range of motion of all extremities, equal. NEUROLOGIC: No focal deficit. Cranial nerves II through XII are grossly intact. No headache, no double vision or headache. SKIN:Dry. Intact. Turgor - normal. Mucosa membrane dry. LYMPHATIC: No palpable lymph nodes/no lymphedema. MUSCULOSKELETAL: Normal joints with no swelling. Muscle tone is normal. LABS: The patient had CT scan of the chest which showed bypass surgery otherwise no other findings. CT of abdomen and pelvis with no acute findings. Hgb 14.8, hct 42, WBC 7,000 normal differential. The patient's renal functions were acceptable. ASSESSMENT: 1. Dehydration likely viral syndrome PLAN: 1. Give IV fluids 2. Dr. Langford consultation for abdominal pain CONDITION: Stable TIME SPENT: More than 30 minutes. Plan and coordination of the patient's care discussed in the presence of nurse. SUHA
[2017-04-02] MEDS: NEURONTIN PO SCH ×3 (10:03→20:04)
[2017-04-02] MEDS: DECADRON 4 MG/ML SDV IM SCH (10:03)
[2017-04-02] MEDS: BACTROBAN TP SCH ×2 (10:03→20:03)
[2017-04-02] MEDS: ZESTRIL PO SCH (10:03)
[2017-04-02] MEDS: BRILINTA PO SCH ×2 (10:04→20:03)
[2017-04-02] MEDS: HYDROCHLOROTHIAZIDE PO SCH (10:04)
[2017-04-02] MEDS: ASPIRIN EC PO SCH (10:04)
--- NOTE | 2017-04-02 10:58 | PCM.PROG ---
Attending Provider: ATTENDING PROVIDER: Dr. AIME MONROE This patient is seen with Audra Viera, Nurse Practitioner. DATE OF SERVICE: 04/02/17 SUBJECTIVE: This 51 year old WHITE/ M was hospitalized 04/01/17. The patient is lying in bed, alert. He was diagnosed with shingles a few days ago by ER physician. They seem to be resolving. Nausea is better this morning with Zofran, still with diarrhea. REVIEW OF SYSTEMS: CONSTITUTIONAL: No night sweats. No fatigue, malaise, lethargy. No fever or chills. HEENT: Eyes: No visual changes. No eye pain. No eye discharge. ENT: No runny nose. No epistaxis. No sinus pain. No odynophagia. No congestion. RESPIRATORY: No cough, no congestion. No hemoptysis. No shortness of breath. CARDIOVASCULAR: No angina symptoms. No CHF symptoms. No atypical chest pain for CAD. No palpitations. No orthopnea.. GASTROINTESTINAL: Diarrhea. No abdominal pain. No nausea or vomiting. No constipation. No hematemesis. No hematochezia. GENITOURINARY: No urgency. No frequency. No dysuria. No hematuria. No obstructive symptoms. No discharge. No pain. No significant abnormal bleeding. MUSCULOSKELETAL: Chronic back pain. NEUROLOGICAL: Awake, alert, oriented to time, place and person. No headache. No neck pain. No syncope. No seizures. No dizziness. PSYCHIATRIC: Not anxious. No depression. No suicidal thoughts. No homicidal thoughts. SKIN: Shingles left ear. ENDOCRINE: No unexplained weight loss. No weight gain. HEMATOLOGIC/LYMPHATIC: No anemia. No purpura. No petechiae. No prolonged or excessive bleeding. No palpable lymph nodes. PHYSICAL EXAMINATION: GENERAL: The patient is awake, alert and oriented, lying/sitting in bed in no distress. VITAL SIGNS: Temperature 97.9 F, Pulse 79, Respiratory Rate 16, BP 115/74, Pulse Ox 98% HEENT: Head normocephalic, atraumatic. Eyes: Extraocular muscles are intact. Pupils are equal, round and reactive to light and accommodation. Ears: No lesions. Nose appeared normal. Throat: No exudate or erythema. NECK: Supple. No JVD, no carotid bruit. No lymphadenopathy or thyromegaly. LUNGS: Diminished breath sounds. Clear to auscultation. Percussion note normal. Chest symmetrical. HEART: S1, S2, no S3. No murmurs. No cyanosis or clubbing. No ascites. Pulses: Dorsalis pedis and posterior tibial pulses +1 to +2 both sides. ABDOMEN: Soft. Non-tender. Bowel sounds active. No CVA tenderness. No mass felt. EXTREMITIES: No edema. Full range of motion of all extremities, equal. NEUROLOGIC: No focal deficit. Cranial nerves II through XII are grossly intact. No headache, no double vision or headache. SKIN: Warm, dry. Intact. Turgor-normal. Blister noted to left ear. Red raised rash across top of chest. LYMPHATIC: No palpable lymph nodes/no lymphedema. MUSCULOSKELETAL: Normal joints with no swelling. Muscle tone is normal. LAB REVIEW: 04/02/17 04:30 04/02/17 04:30 04/02/17 04:30: Sodium 139, Potassium 3.2 L, Chloride 114 H, Carbon Dioxide 18 L , Anion Gap 10.2, BUN 14, Creatinine 0.63, Estimated GFR (MDRD) 133.00, BUN/ Creatinine Ratio 22.22, Glucose 196 H D, Calcium 6.5 L, Total Bilirubin 0.3, AST 12 L, ALT 17, Alkaline Phosphatase 50, Total Protein 5.0 L, Albumin 2.4 L, Globulin 2.6, Albumin/Globulin Ratio 0.92 04/02/17 04:30: WBC 7.23, RBC 3.81 L, Hgb 11.4 L D, Hct 33.9 L D, MCV 89.0, MCH 29.9, MCHC 33.6, RDW Coeff of Maritza 13.0, Plt Count 228, Immature Gran % (Auto) 0.3, Neut % (Auto) 75.3, Lymph % (Auto) 17.8, [place] % (Auto) 5.8, Eos % (Auto) 0.4, Baso % (Auto) 0.4, Immature Gran # (Auto) 0.0, Neut # 5.4, Lymph # 1.3, [place] # 0.4, Eos # 0.0, Baso # 0.0 04/01/17 15:58: Puncture Site Rrad, O2 Saturation 96.0, ABG pH 7.408, ABG pCO2 38.2, ABG pO2 79.0 L, ABG HCO3 24.1, ABG Total CO2 25, ABG Base Excess -1, Abel Test +, FiO2 % 21.0 ASSESSMENT: 1. ACUTE GASTROENTERITIS 2. SHINGLES TO LEFT EAR 3. HYPOKALEMIA 4. DEHYDRATION PLAN: 1. Potassium 40 mEq b.i.d. 2. Bactroban cream to affected areas Plan and coordination of the patient's care discussed in the presence of Manager Card and nurse. CONDITION: Stable SCRIBED BY: Sadaf GLEZist scribed while in presence of service performed by Dr. Monroe/Audra Viera APRN on 04/02/17 ([id number])
[2017-04-02] MEDS ORDERED: NORCO 7.5-325 MG/15 ML PO PRN (11:50)
[2017-04-02] MEDS: NORCO 7.5-325 PO PRN ×2 (14:21→20:05)
[2017-04-02] MEDS ORDERED: ROBITUSSIN DM SYRUP PO STA (15:40)
[2017-04-02] MEDS: K-DUR PO SCH (17:10)
[2017-04-02] MEDS: LIPITOR PO SCH (20:04)
[2017-04-02] MEDS: VALIUM PO SCH (20:04)
[2017-04-02] MEDS ORDERED: ROBITUSSIN DM SYRUP PO ONE (21:00)
[2017-04-02] MEDS ORDERED: ROBITUSSIN AC SYRUP PO ONE (21:45)
[2017-04-03] MEDS: ZOVIRAX PO SCH ×2 (05:34→09:09)
[2017-04-03] MEDS: PROTONIX PO SCH (05:34)
[2017-04-03] MEDS: NORCO 7.5-325 PO PRN ×2 (05:35→11:09)
[2017-04-03] MEDS: HUMULIN R SUBCUT PRN ×2 (05:37→11:03)
[2017-04-03] MEDS ORDERED: DECADRON 4 MG/ML SDV IVP STA (08:35)
[2017-04-03] MEDS ORDERED: INSULIN GLARGINE HUM REC ANLOG 80 UNIT SQ SCH (09:00)
[2017-04-03] MEDS ORDERED: LANTUS SUBCUT SCH ×2 (09:00→21:00)
[2017-04-03] MEDS: ASPIRIN EC PO SCH (09:06)
[2017-04-03] MEDS: BACTROBAN TP SCH (09:06)
[2017-04-03] MEDS: BRILINTA PO SCH (09:06)
[2017-04-03] MEDS: HYDROCHLOROTHIAZIDE PO SCH (09:07)
[2017-04-03] MEDS: K-DUR PO SCH (09:07)
[2017-04-03] MEDS: ZESTRIL PO SCH (09:08)
[2017-04-03] MEDS: NEURONTIN PO SCH (09:08)
[2017-04-03] MEDS ORDERED: PHENERGAN WITH CODEINE 6.25/10 MG/5 ML PO STA (09:42)
[2017-04-03 10:35] VITALS: BP 108/69; TEMP 97.9
--- NOTE | 2017-04-03 11:15 | PCM.PROG ---
Attending Provider: ATTENDING PROVIDER: Dr. AIME MONROE This patient is seen with Audra Viera, Nurse Practitioner. DATE OF SERVICE: 04/03/17 SUBJECTIVE: This 51 year old WHITE/ M was hospitalized 04/01/17. The patient is lying in bed, is alert, has been up and about walking around. Nausea improved. He states he feels like he has developed a cough. REVIEW OF SYSTEMS: CONSTITUTIONAL: No night sweats. No fatigue, malaise, lethargy. No fever or chills. HEENT: Eyes: No visual changes. No eye pain. No eye discharge. ENT: No runny nose. No epistaxis. No sinus pain. No odynophagia. No congestion. RESPIRATORY: Cough. No congestion. No hemoptysis. No shortness of breath. CARDIOVASCULAR: No angina symptoms. No CHF symptoms. No atypical chest pain for CAD. No palpitations. No orthopnea.. GASTROINTESTINAL: No abdominal pain. No nausea or vomiting. No diarrhea or constipation. No hematemesis. No hematochezia. GENITOURINARY: No urgency. No frequency. No dysuria. No hematuria. No obstructive symptoms. No discharge. No pain. No significant abnormal bleeding. MUSCULOSKELETAL: No musculoskeletal pain; no joint swelling. NEUROLOGICAL: Awake, alert, oriented to time, place and person. No headache. No neck pain. No syncope. No seizures. No dizziness. PSYCHIATRIC: Not anxious. No depression. No suicidal thoughts. No homicidal thoughts. SKIN: No rash. No lesions. No wounds. ENDOCRINE: No unexplained weight loss. No weight gain. HEMATOLOGIC/LYMPHATIC: No anemia. No purpura. No petechiae. No prolonged or excessive bleeding. No palpable lymph nodes. PHYSICAL EXAMINATION: GENERAL: The patient is awake, alert and oriented, lying/sitting in bed in no distress. VITAL SIGNS: Temperature 97.4 F, Pulse 71, Respiratory Rate 16, BP 109/65, Pulse Ox 97% HEENT: Head normocephalic, atraumatic. Eyes: Extraocular muscles are intact. Pupils are equal, round and reactive to light and accommodation. Ears: No lesions. Nose appeared normal. Throat: No exudate or erythema. NECK: Supple. No JVD, no carotid bruit. No lymphadenopathy or thyromegaly. LUNGS: Diminished breath sounds bilaterally. Clear to auscultation. Percussion note normal. Chest symmetrical. HEART: S1, S2, no S3. No murmurs. No cyanosis or clubbing. No ascites. Pulses: Dorsalis pedis and posterior tibial pulses +1 to +2 both sides. ABDOMEN: Soft. Non-tender. Bowel sounds active. No CVA tenderness. No mass felt. EXTREMITIES: No edema. Full range of motion of all extremities, equal. NEUROLOGIC: No focal deficit. Cranial nerves II through XII are grossly intact. No headache, no double vision or headache. SKIN: Not dry. Intact. Turgor-normal. LYMPHATIC: No palpable lymph nodes/no lymphedema. MUSCULOSKELETAL: Normal joints with no swelling. Muscle tone is normal. LAB REVIEW: 04/03/17 05:15 04/03/17 05:15 04/03/17 05:15: Sodium 133 L, Potassium 4.5, Chloride 94 L D, Carbon Dioxide 27 D, Anion Gap 16.5, BUN 23 H, Creatinine 1.24 H D, Estimated GFR (MDRD) 61.00, BUN/Creatinine Ratio 18.54, Glucose 391 H, Calcium 10.5 H, Total Bilirubin 0.5, AST 13 L, ALT 22, Alkaline Phosphatase 91 D, Total Protein 8.4 H, Albumin 3.9, Globulin 4.5, Albumin/Globulin Ratio 0.87 04/03/17 05:15: WBC 9.36, RBC 5.11, Hgb 15.3 D, Hct 44.8 D, MCV 87.7, MCH 29.9 , MCHC 34.2, RDW Coeff of Maritza 13.1, Plt Count 310 D, Immature Gran % (Auto) 0.3 , Neut % (Auto) 62.2, Lymph % (Auto) 26.9, [place] % (Auto) 8.4, Eos % (Auto) 1.9, Baso % (Auto) 0.3, Immature Gran # (Auto) 0.0, Neut # 5.8, Lymph # 2.5, [place] # 0.8, Eos # 0.2, Baso # 0.0 ASSESSMENT: 1. ACUTE GASTROENTERITIS, RESOLVED 2. SHINGLES TO LEFT EAR, IMPROVING 3. HYPOKALEMIA, RESOLVED 4. DEHYDRATION, RESOLVED 5. COUGH PLAN: 1. Keflex 500 mg t.i.d. times 10 days 2. Finish Zovirax 3. Prednisone 10 b.i.d times 5 days 4. Discharge home 5. Phenergan with Codeine 1 to 2 teaspoons q.6hr p.r.n. 6. 1 cc Decadron before discharge home Plan and coordination of the patient's care discussed in the presence of Public Health Officer and nurse. CONDITION: Stable SCRIBED BY: NINA BAKER Tank Car Inspector scribed while in presence of service performed by Dr. Monroe/Audra Viera APRN on 04/03/17 ([id number])
--- NOTE | 2017-04-03 11:34 | CM.DICTOOL ---
ADMISSION: 04/01/17 15:14 DISCHARGE: 2017 DATE OF SERVICE: 04/03/17 FINAL DIAGNOSIS Dehydration Gastroenteritis Uncontrolled diabetes mellitus Shingles, Left Ear Hypokalemia [place], 1985 CAD Stent Application Hypertension Dyslipidemia CABG, 2014 Back Surgery, Several LVH LVEF 40%, 2017 LAST VITALS Temp Pulse Resp BP Pulse Ox 97.9 F 80 18 108/69 95 04/03/17 10:00 04/03/17 10:00 04/03/17 10:00 04/03/17 10:00 04/03/17 10:00 ACTIVE HOME MEDICATIONS Acetaminophen/Hydrocodone Bitart ([place] 7.5-325) 1 tab PO Q6HR PRN PRN Reason: Mild Pain Last Admin: 04/03/17 05:35 Dose: 1 tab Acyclovir (Zovirax) 800 mg PO 5XD [facility] Last Admin: 04/03/17 09:09 Dose: 800 mg Aspirin (Aspirin Ec) 81 mg PO DAILYWM [facility] Last Admin: 04/03/17 09:06 Dose: 81 mg Atorvastatin Calcium (Lipitor) 40 mg PO BEDTIME [facility] Last Admin: 04/02/17 20:04 Dose: 40 mg Diazepam (Valium) 2 mg PO BEDTIME [facility] Last Admin: 04/02/17 20:04 Dose: 2 mg Docusate Sodium (Colace) 100 mg PO DAILY PRN PRN Reason: Constipation Gabapentin (Neurontin) 300 mg PO TID [facility] Last Admin: 04/03/17 09:08 Dose: 300 mg Hydrochlorothiazide (Hydrochlorothiazide) 25 mg PO DAILY [facility] Last Admin: 04/03/17 09:07 Dose: 25 mg Insulin Glargine (Lantus) 80 unit SUBCUT BID [facility] Insulin Human Lispro (Humalog) 10 unit SUBCUT TIDWM PRN PRN Reason: glucose over 200 Lisinopril (Zestril) 10 mg PO DAILY [facility] Last Admin: 04/03/17 09:08 Dose: 10 mg Canagliflozin (Invokana) 300 mg PO DAILY Last Admin: Pantoprazole Sodium (Protonix) 40 mg PO QDAC [facility] Last Admin: 04/03/17 05:34 Dose: 40 mg Ticagrelor (Brilinta) 90 mg PO BID [facility] Last Admin: 04/03/17 09:06 Dose: 90 mg ALLERGIES butorphanol [From Stadol] Adverse Reaction (Verified 04/01/17 11:55) ketorolac [From Toradol] Adverse Reaction (Verified 04/01/17 11:55) orphenadrine [From Norflex] Adverse Reaction (Verified 04/01/17 11:55) NEW PRESCRIPTIONS: Phenergan with Codeine 1-2 teaspoons prn Q 6 hours Prednisone 10 mg BID for 5 days Keflex 500 mg TID for 10 days SMOKING: Not Applicable DISEASE SPECIFIC EDUCATION: Shingles Medications Dehydration Appointment LAB REVIEW: 04/03/17 05:15 04/03/17 05:15 04/03/17 05:15: Sodium 133 L, Potassium 4.5, Chloride 94 L D, Carbon Dioxide 27 D, Anion Gap 16.5, BUN 23 H, Creatinine 1.24 H D, Estimated GFR (MDRD) 61.00, BUN/Creatinine Ratio 18.54, Glucose 391 H, Calcium 10.5 H, Total Bilirubin 0.5, AST 13 L, ALT 22, Alkaline Phosphatase 91 D, Total Protein 8.4 H, Albumin 3.9, Globulin 4.5, Albumin/Globulin Ratio 0.87 04/03/17 05:15: WBC 9.36, RBC 5.11, Hgb 15.3 D, Hct 44.8 D, MCV 87.7, MCH 29.9 , MCHC 34.2, RDW Coeff of Maritza 13.1, Plt Count 310 D, Immature Gran % (Auto) 0.3 , Neut % (Auto) 62.2, Lymph % (Auto) 26.9, [place] % (Auto) 8.4, Eos % (Auto) 1.9, Baso % (Auto) 0.3, Immature Gran # (Auto) 0.0, Neut # 5.8, Lymph # 2.5, [place] # 0.8, Eos # 0.2, Baso # 0.0 PLAN: Discharge home Diet: Consistent Carbohydrate Activity: Resume as tolerated Continue to check your blood sugars at least 2-3 times daily Continue medications as listed on nursing discharge information sheet Complete a total of 5 days of Acyclovir May continue to apply Bactroban to left ear An appointment is scheduled with Dr. Murphy/Audra Viera APRN on at 10:15 am Mr. Steen is alert and oriented x 3. He is independent with Activities of Daily Living. He is ambulatory in the hallway without assistance of the nursing staff or use of an assistive device. He denies nausea, diarrhea or abdominal pain. Meal intakes are 100%. Skin is in good condition except for scabbing noted to the left ear. No blistering or lesions noted to the left side of the face or neck. No drainage is noted to the left ear. He reports coughing, but the cough is non-productive. Shai Murphy MD Audra Viera APRN
--- NOTE | 2017-04-07 08:11 | PN ---
DATE OF SERVICE: 04/02/17 SUBJECTIVE: The patient was sitting up in the bed awake with no abdominal pain and eating better. No nausea and no vomiting. He complained of pain on the left side of the face especially the left ear area because of shingles Herpes Zoster. The patient is being treated with Acyclovir. The patient is going to be followed by Dr. Langford, he is on consult and I will be leaving town. The patient was seen and examined with the Nurse Practitioner. CONDITION: Stable. TIME SPENT: More than 30 minutes. Plan and coordination of the patient's care discussed in the presence of nurse. SUHA
--- NOTE | 2017-04-07 11:32 | CONS ---
DATE OF CONSULTATION: 04/02/17 HISTORY OF PRESENT ILLNESS: 51 year old male , patient of Dr. Murphy was admitted 04/01/17 because of nausea and vomiting. The patient is diabetic and his blood sugar was uncontrolled. The patient's nausea and vomiting has resolved and had no problems on 04/02/17. He did consume 100% of his snack. He is still complaining of a non productive cough. He does have some scabbing areas in the midportion of the [place] anterior which was diagnosed as herpes zoster. He told me that he had some itching and when he looked at it he noted scabs and crusty areas. There is no real pain. There are no other areas in the ear that is infected except the midportion of the [place] anteriorly. We would need a viral culture to see if indeed this patient has herpes zoster or maybe herpes simplex type 2. NECK: No mass and no bruit LUNGS: Clear to auscultation in both sides and no wheezing HEART: Audible and regular with good tones ABDOMEN: Nontender, Bowel sounds are active. No further vomiting. CONDITION: Stable VITALS: Temperature 97.9, pulse 86, blood pressure 120/74, respiratory rate 20, oxygen saturation 98% at room air. Slightly lower hgb and hct and that is probably from hydration, EGFR has fluctuated remarkable as well as his sugar. This patient been receiving Decadron also. MTDD
--- NOTE | 2017-04-07 11:51 | CONS ---
DATE OF VISIT: 04/03/17 SUBJECTIVE: The patient today is alert, ambulatory with dry cough with no fever. He had no further diarrhea or vomiting. The patient is eating. His only main problem is just a cough which is dry and nonproductive. His color is good, not dyspneic or tachypneic. VITAL SIGNS: Temperature 97.9, pulse 80, blood pressure 108/69, respiratory rate 18, oxygen saturation 95 at room air. FACE: symmetrical and equal with no facial weakness. No tenderness in the frontal maxillary sinus area to palpation under pressure. LUNGS: Clear to auscultation posteriorly throughout. Anteriorly is clear HEART: Normal sinus rhythm Abdomen: No longer tender The patient will have a culture of the left ear on the skin lesion on the [address]. This is a viral culture. The patient had been resumed on his Lantus for the diabetes. He is supposed to get Lantus 80 units SUBCUE twice a day. Also getting Humalog continued SUBCUE three times a day as needed. This patient's BMI Is elevated 34.7. LUNGS: Clear to auscultation in both sides HEART: Normal sinus rhythm No other complains except for the dry cough. He is going home to resume his previous medications and he is to be followed by Dr. Murphy next week. He also will be prescribed an antibiotic. The patient was advised to see the doctor sooner or return to the emergency room with any concerns. SUHA
--- NOTE | 2017-04-09 08:56 | PN ---
DATE OF VISIT: 04/02/17 SUBJECTIVE: 51 year old male patient of Dr. Grant was admitted because of nausea and vomiting. The patient is diabetic and his blood sugar was uncontrolled. The patient's vomiting and nausea has resolved and he had no problems on 04/02/17. He did consume 100% of his snack. He is still complaining of nonproductive cough. He does have some scabbing areas in the midportion of the helix anterior, which was diagnosis as herpes zoster. He told me that he had some itching and when he looked at it he noted scabs and crusty areas. There is no real pain. There are no other areas in the ear that is effected, except in the midportion of the helix anteriorly. We would need a viral culture to see if indeed this patient has herpes zoster or maybe simplex type II. NECK: No masses and no bruit. LUNGS: Clear to auscultation in both sides and no wheezing. HEART: Audible and regular with good tones. ABDOMEN: Nontender. Bowel sounds are active. No further diarrhea or vomiting. VITAL SIGNS: 04/02/17 at 6 p.m. showed a temperature of 97.9, pulse 86, blood pressure 120/74, respiratory rate 20, oxygen saturation 98 at room air. The patient has slightly lower hemoglobin and hematocrit that probably is from hydration. E GFR has fluctuated remarkably, as well as the sugar. This patient had been receiving Decadron also. CONDITION: Stable. MTDD
--- NOTE | 2017-04-09 09:25 | PN ---
DATE OF VISIT: 04/03/17 SUBJECTIVE: The patient, today, is alert, ambulatory with a dry cough with no fever. He had no further diarrhea or vomiting. The patient is eating. His only main problem is just the cough, which is dry or nonproductive. His color is good and he is not dyspneic, nor tachypneic. VITAL SIGNS: At 10 o'clock on 04/03/17 showed a temperature of 97.9, pulse of 80 , blood pressure 108/69, respiratory rate 18, oxygen saturation 95 at room air. FACE: Symmetrical and equal with no facial weakness. No tenderness in the frontal or maxillary sinus areas to palpation under pressure. LUNGS: Clear to auscultation posteriorly throughout. The lungs also anteriorly is clear. HEART: Normal sinus rhythm. ABDOMEN: No longer tender. The patient will have a culture of the left ear on the skin lesion in the helix. This is a viral culture. The patient had been resumed on his Lantus for the diabetes. He supposed to get Lantus 80 units subcutaneously twice a day. He is also getting Humalog 10 units subcutaneously three times a day as needed. This patient's BMI is elevated at 34.7. No other complaints, except for the dry cough. He is going home and to resume his previous medications and he is to be followed by Dr. Murphy next week. He also will be prescribed an antibiotic. The patient was advised to see the doctor sooner or return to the emergency room with any concerns. SUHA
--- NOTE | 2017-05-01 13:32 | HP ---
DATE OF SERVICE: 04/02/17 (ADMITTED 04/01) HISTORY OF PRESENT ILLNESS: This is a 51-year-old white male who presents to the emergency room with nausea and vomiting. He is currently being treated for shingles that he has on his ear and the left side of his upper chest. PAST MEDICAL HISTORY: Chronic back pain - he sees Dr. Figueroa Recent CABG Coronary artery disease Diabetes mellitus Type 2 Hypertension Obesity Nephrolithiasis Recent shingles which are recurrent COPD Former smoker PAST SURGICAL HISTORY: CABG 2014 Recent stent in 2017 Back surgery Left knee surgery Right shoulder surgery REVIEW OF SYSTEMS: CONSTITUTIONAL: Fatigue, weakness. No night sweats. No malaise, lethargy. No fever or chills. HEENT: Eyes: No visual changes. No eye pain. No eye discharge. ENT: No runny nose. No epistaxis. No sinus pain. No sore throat. No odynophagia. No ear pain. No congestion. RESPIRATORY: No cough, no congestion. No hemoptysis. No shortness of breath. CARDIOVASCULAR: No angina symptoms. No CHF symptoms. No atypical chest pain for CAD. No palpitations. No orthopnea. GASTROINTESTINAL: Nausea, vomiting and diarrhea. No abdominal pain. No constipation. No hematemesis. No hematochezia. GENITOURINARY: No urgency. No frequency. No dysuria. No hematuria. No obstructive symptoms. No discharge. No pain. No significant abnormal bleeding. MUSCULOSKELETAL: No musculoskeletal pain. No joint swelling. No arthritis. NEUROLOGICAL: No headache. No neck pain. No syncope. No seizures. No dizziness. PSYCHIATRIC: Not anxious. No depression. No suicidal thoughts. No homicidal thoughts. SKIN: No rash. No lesions. No wounds. ENDOCRINE: No unexplained weight loss. No weight gain. HEMATOLOGIC/LYMPHATIC: No anemia. No purpura. No petechiae. No prolonged or excessive bleeding. No palpable lymph nodes. PERSONAL/FAMILY/SOCIAL HISTORY: The patient is a former smoker. No alcohol or illicit drug use. He currently lives at home with his girlfriend. MEDICATIONS: (HOME MEDICATIONS) Lipitor 40 mg daily Lisinopril HCTZ 10/12.5 daily Invokana 300 mg daily Lantus 80 units SubQ b.i.d. Humalog 10 units SubQ t.i.d. p.r.n. Valium 2 mg at bedtime Protonix 40 mg daily Aspirin 81 mg daily Brilinta 90 mg b.i.d. Colace 100 mg p.r.n. Acyclovir 800 mg p.o. five times a day for five days Neurontin 300 mg t.i.d. [place] 5/325 mg q.6hr p.r.n. ALLERGIES: STADOL, TORADOL, NORFLEX PHYSICAL EXAMINATION: VITAL SIGNS: Temperature 98.3, heart rate 94, respirations 20, BP 121/83, pulse ox 95%. HEENT: Head normocephalic, atraumatic. Eyes: Extraocular muscles are intact. Pupils are equal, round and reactive to light and accommodation. Ears: No lesions. Nose appeared normal. Throat: No exudate or erythema. NECK: Supple. No JVD, no carotid bruit. No lymphadenopathy or thyromegaly. LUNGS: Diminished breath sounds bilaterally. Clear to auscultation. Percussion note normal. Chest symmetrical. HEART: S1, S2, no S3. No murmurs. No cyanosis or clubbing. No ascites. Pulses: Dorsalis pedis and posterior tibial pulses +1 to +2 both sides. ABDOMEN: Soft. Nontender. Bowel sounds active. No CVA tenderness. No mass felt. EXTREMITIES: No edema. Full range of motion of all extremities, equal. NEUROLOGIC: No focal deficit. Cranial nerves II through XII are grossly intact. No headache, no double vision or headache. SKIN: Dry. He has scabbing to the left ear consistent with shingles with a light red rash on his upper chest, which is questionable for contact dermatitis vs shingles. Intact. Turgor - normal. LYMPHATIC: No palpable lymph nodes/no lymphedema. MUSCULOSKELETAL: Normal joints with no swelling. Muscle tone is normal. LABS: White count 7.29, hemoglobin 14.8, hematocrit 42.8, platelets 252. Sodium 135, potassium 4.2, BUN 17, creatinine 1.11, glucose 362, total bili 0.58, AST 24, ALT 29, alkaline phosphatase 74, total protein 7.8, albumin 3.8, globulin 4.0. Influenza A and B are both negative. CT of the abdomen and pelvis showed no acute intraabdominal or pelvic abnormality. CT of the chest showed no acute cardiopulmonary process. Changes of CABG are present. ASSESSMENT: 1. ACUTE GASTROENTERITIS 2. HYPOKALEMIA 3. HERPES ZOSTER TO THE LEFT EAR 4. CHRONIC BACK PAIN 5. DEHYDRATION PLAN: 1. Will admit to the floor 2. IV fluids, D5 1/2 NS at 75 cc/hr 3. Protonix 40 mg b.i.d. p.o. 4. Zofran 4 mg q.6hr IV 5. Routine telemetry orders 6. CBC/CMP daily 7. Regular diet 8. Will follow closely TIME SPENT: More than 70 minutes. MTDD
--- NOTE | 2017-05-01 13:55 | DS ---
DATE OF SERVICE: 04/03/17 FINAL DIAGNOSIS: 1. DEHYDRATION 2. GASTROENTERITIS 3. UNCONTROLLED DIABETES MELLITUS 4. SHINGLES, LEFT EAR 5. HYPOKALEMIA 6. UT, 1984 7. CAD 8. STENT APPLICATION 9. HYPERTENSION 10. DYSLIPIDEMIA 11. CABG, 2013 12. BACK SURGERY, SEVERAL 13. LVH 14. LVEF 40%, 2017 DISCHARGE INSTRUCTIONS: 1. Followup appointment is scheduled with Dr. Murphy/Audra Viera APRN on at 10:15 a.m. 2. Continue to check blood sugars at least 2 to 3 times daily 3. Continue medications as listed on longterm discharge information sheet 4. Complete a total of 5 days of Acyclovir 5. May continue to apply Bactroban to left ear MEDICATIONS AT DISCHARGE: Acetaminophen/Hydrocodone one tab p.o. q.6hr p.r.n. Zovirax 800 mg p.o. 5 timesD PRIMITIVO Aspirin 81 mg p.o. daily with meal PRIMITIVO Lipitor 40 mg p.o. bedtime PRIMITIVO Valium 2 mg p.o. bedtime PRIMITIVO Docusate Sodium (Colace) 100 mg p.o. daily p.r.n. Neurontin 300 mg p.o. t.i.d. PRIMITIVO Hydrochlorothiazide 25 mg p.o. daily PRIMITIVO Lantus 80 unit subcut b.i.d. PRIMITIVO Lispro (Humalog) 10 unit subcut t.i.d. with meal p.r.n. Zestril 10 mg p.o. daily PRIMITIVO Invokana 300 mg p.o. daily Protonix 40 mg p.o. q.d a.c.PRIMITIVO Brilinta 90 mg p.o. b.i.d. PRIMITIVO NEW PRESCRIPTIONS: Phenergan with Codeine 1-2 teaspoons p.r.n. q.6hr Prednisone 10 mg b.i.d. for 5 days Keflex 500 mg t.i.d. for 10 days DIET INSTRUCTIONS: Consistent carbohydrate ACTIVITY: Resume as tolerated SMOKING: N/A DISEASE SPECIFIC EDUCATION: Shingles Medications Dehydration Appointment HOSPITAL COURSE: This is a 51-year-old male who presented to the emergency room complaining of nausea, vomiting and diarrhea. Kidney function was slightly elevated due to dehydration. CT of the abdomen and pelvis as well as the chest were done which were all normal. He was admitted, placed on IV fluids NS at 125 cc/hr, given Zofran 4 mg IV q.6hr. All of his home medications were continued. He had previously been to the emergency room for Herpes Zoster on his left ear and he is currently on Acyclovir 800 mg five times a day times five days. The lesion on his ear is scabbed and seems to be resolving. There are some reddish lesions on his chest which appear to be possible contact dermatitis versus actual shingles. He was given 1 cc Decadron IM on admission and Zofran on admission. His nausea resolved rather quickly. He did experience two bouts of diarrhea while hospitalized. On the day after admission, his potassium dropped to 3.2, started him on oral potassium 40 mEq b.i.d. We started using Bactroban ointment to the scabbed lesion on his ear and continued his Acyclovir. Over the course of the past 48 hours, his nausea and vomiting have resolved. He has been up and about walking around eating 75 to 100% of his meals for the past 24 hours. He does state that he does feel like he has developed somewhat of a cough with pain with coughing associated with his previous CABG. CT of the chest was normal. We will send him home on Keflex 500 mg t.i.d. times 7 days along with Prednisone 10 mg b.i.d. for the next 5 days. He is to continue his Acyclovir. We will give him another 1 cc of Decadron IM prior to discharge. Today, on day of discharge, his labs have significantly improved. BUN 14, creatinine 0.63, sodium 139, potassium 3.5, white count 7.23, hemoglobin 11.5, hematocrit 33.9. Vital signs have been stable. Temperature 97.9, heart rate 79, respirations 16, BP 115/74, pulse ox 98%. He will be discharged home in stable condition and will followup with him next week. TIME SPENT: More than 60 minutes. SUHA
== END 2017-04-03 13:27 | disposition home or self-care (01) | DRG 641 ==
LOC: ED 11:47 → MEDSURG A 15:14
PROVIDERS: ADMIT Internal Medicine; ATTEND Internal Medicine
DX: E86.0 Dehydration (principal); B02.8 Zoster with other complications; I50.1 Left ventricular failure, unspecified; K52.9 Noninfective gastroenteritis and colitis, unspecified; E10.65 Type 1 diabetes mellitus with hyperglycemia; E87.6 Hypokalemia; I25.2 Old myocardial infarction; I10 Essential (primary) hypertension; E78.5 Hyperlipidemia, unspecified; Z95.1 Presence of aortocoronary bypass graft; Z98.890 Other specified postprocedural states
CPT/HCPCS: 36415; 80053; 82550; 82803; 82962; 83605; 84145; 84484; 85025; 87040; 87252; 87502; 87651; 93005; 93010; 99222; 99223; 99232; 99239; 99284

== ENCOUNTER 2017-04-23 15:04 | Emergency (ER) ==
[2017-04-23 15:26] VITALS: TEMP 99.4; BMI 34.2
--- NOTE | 2017-04-23 16:59 | ED.PDOC ---
General ED Provider: Dr. CAYETANO BUSBY Chief Complaint: Dizziness Stated Complaint: 2 week history of dizziness Time Seen by Physician: 15:10 Mode of Arrival: Wheelchair Information Source: Patient Primary Care Provider: AIME MONROE Nursing and Triage Documentation Reviewed and Agree: Yes Reviewed sepsis parameters & appropriate labs ordered?: Yes System Inflammatory Response Syndrome: Not Applicable Sepsis Protocol: For patient's 13 years and over: Temp is 96.8 and below OR 101 and greater Pulse >90 BPM Resp >20/minute Acutely Altered Mental Status Are patient's symptoms suggestive of a new infection, such as: -Pneumonia -Skin, Soft Tissue -Endocarditis -UTI -Bone, Joint Infection -Implantable Device -Acute Abdominal Infection -Wound Infection -Meningitis -Blood Stream Catheter Infection -Unknown System Inflammatory Response Syndrome: Not Applicable Neurological Complaint Exam - Dizziness Complaint/Exam Onset: Gradual Symptoms Are: Resolved Timing: Intermittent Episodes Lasting: Minutes Initial Severity: Mild Current Severity: Mild Character: Reports: Lightheaded Aggravating: Reports: Position change, Change in head position Alleviating: Reports: Rest Associated Signs and Symptoms: Denies: Nausea, Vomiting, Diaphoresis, Tinnitus, Chest pain, Short of air, Palpitations, Unsteady gait, GI blood loss, Visual changes Related History: Similar episode Cardiac Risk Factors: Reports: Diabetes, Elevated lipids, CAD CVA Risk Factors: Reports: Diabetes, Hypertension, PVD, CAD JVD Present: No Carotid Bruit Present: No Nystagmus Present: No Gag Reflex Present: Yes Meningeal Signs Positive: No Focal Weakness: Present: None Focal Sensory Loss: Present: None Ygusmp-xy-[id number]: Normal Findings Review of Systems - Review Of Systems Constitutional: Reports: No symptoms Eyes: Reports: No symptoms Ears, Nose, Mouth, Throat: Reports: No symptoms Respiratory: Reports: No symptoms Cardiac: Reports: No symptoms GI: Reports: No symptoms : Reports: No symptoms Musculoskeletal: Reports: No symptoms Skin: Reports: No symptoms Neurological: Reports: Emotional problems, Headache, Tingling Endocrine: Reports: No symptoms Hematologic/Lymphatic: Reports: No symptoms All Other Systems: Reviewed and Negative Past Medical History - Past Medical History Previously Healthy: Yes Endocrine: Reports: DM 2 Cardiovascular: Reports: CAD Respiratory: Reports: None Hematological: Reports: None Gastrointestinal: Reports: None Genitourinary: Reports: Kidney stones Neuro/Psych: Reports: None Musculoskeletal: Reports: Arthritis, Back Pain Cancer: Reports: None Other Pertinent Past Medical History: Shingles - Surgical History General Surgical History: Reports: CABG (2014), Back Surgery (left knee surgery , right shoulder, back surgery x 4) - Family History Family History: Reports: Unknown - Social History Smoking Status: Former smoker Hx Substance Use: No Alcohol Screening: None - Immunizations Influenza Vaccine within 12 Months: No Pneumococcal Vaccine up to Date: No Physical Exam - Physical Exam Appearance: Well-appearing, Obese Ill-appearing: None Pain Distress: None Eyes: MOUNA, EOMI, Conjunctiva clear, Conjunctiva inflammed ENT: Ears normal, Nose normal, Oropharynx normal Neck: Supple Respiratory: Airway patent, Breath sounds clear, Breath sounds equal Cardiovascular: RRR, Pulses normal, No rub, No murmur GI/: Soft, Nontender, No masses, Bowel sounds normal Musculoskeletal: Normal strength, ROM intact, No edema Skin: Warm, Dry, Normal color, Pale Neurological: Sensation intact, Motor intact, Reflexes intact, Alert, Oriented Psychiatric: Affect appropriate, Mood appropriate, Anxious Interpretation - Radiology Interpretation Radiology Interpretation By: Radiologist Radiology Results: No acute changes Exam Interpreted: CT Scan Re-Evaluation - Re-Evaluation Time of Re-Evaluation: 18:30 Status: Improved Vital Signs Stable: Yes Appearance: NAD Lungs: Clear Skin: Warm and Dry Neuro: Alert and Oriented X3 CV: RRR Additional Comments: Ambulates without difficulty and Rhombergs negative Critical Care Note - Critical Care Note Total Time (mins): 0 Course - Course Hematology/Chemistry: 04/23/17 17:27 04/23/17 17:27 Orders, Labs, Meds: Lab Review 04/23/17 04/23/17 04/23/17 17:27 17:27 17:37 WBC 13.05 H RBC 4.62 L Hgb 14.2 Hct 41.2 L MCV 89.2 MCH 30.7 MCHC 34.5 RDW Coeff of [place] 13.8 Plt Count 280 Immature Gran % (Auto) 0.2 Neut % (Auto) 64.5 Lymph % (Auto) 26.1 [place] % (Auto) 6.3 Eos % (Auto) 2.5 Baso % (Auto) 0.4 Immature Gran # (Auto) 0.0 Neut # 8.4 H Lymph # 3.4 Cooper # 0.8 Eos # 0.3 Baso # 0.1 Sodium 138 Potassium 4.4 Chloride 103 Carbon Dioxide 26 Anion Gap 13.4 BUN 13 Creatinine 1.06 Estimated GFR (MDRD) 73.00 BUN/Creatinine Ratio 12.26 Glucose 264 H Calcium 9.7 Total Bilirubin 0.3 AST 11 L ALT 19 Alkaline Phosphatase 82 Total Protein 7.4 Albumin 3.4 Globulin 4.0 Albumin/Globulin Ratio 0.85 Urine Color Yellow Urine Clarity Clear Urine pH 6.5 Ur Specific [place] 1.010 Urine Protein Negative Urine Glucose (UA) 2+ Urine Ketones Negative Urine Blood Negative Urine Nitrite Negative Urine Bilirubin Negative Urine Urobilinogen 0.2 Ur Leukocyte Esterase Negative Orders Category Date Time Status EKG-(ED ONLY) Stat CARDIO 04/23/17 17:15 Completed CBC W/ AUTO DIFF Stat LAB 04/23/17 17:27 Completed CMP [COMPREHENSIVE METABOLIC PANEL] Stat LAB 04/23/17 17:27 Completed URINALYSIS C & S IF INDICATED Stat LAB 04/23/17 17:[address] CERVICAL SPINE W/O CONTRAST Stat RADS 04/23/17 17:[address] FOOT LEFT WITHOUT CONTRAST Stat RADS 04/23/17 17:[address] HEAD W/O CONTRAST Stat RADS 04/23/17 17:13 Completed Vital Signs: Temp Pulse Resp BP Pulse Ox 04/23/17 17:54 80 21 101/58 L 04/23/17 15:04 99.4 F 87 20 120/77 96 Departure - Departure Time of Disposition: 19:00 Disposition: HOME SELF-CARE Discharge Problem: Dizziness, Falling episodes, Cervical strain, acute, Heel pain Instructions: Cervical Strain (ED), Cervical Spinal Stenosis (ED), Lightheadedness (ED), Degenerative Disc Disease (ED) Condition: Good Pt referred to PMD for follow-up: Yes (follow up for evaluation and if symptoms persist MRI Scan Brain, Cerv Spine) IPMP verified?: No Prescriptions: Meclizine HCl 12.5 mg PO Q6-8H PRN #10 tablet PRN Reason: Dizziness Allergies/Adverse Reactions: Allergies butorphanol [From Stadol] Adverse Reaction (Verified 04/23/17 15:13) ketorolac [From Toradol] Adverse Reaction (Verified 04/23/17 15:13) orphenadrine [From Norflex] Adverse Reaction (Verified 04/23/17 15:13) Home Medications: Ambulatory Orders Atorvastatin Calcium [Lipitor] 40 mg PO BEDTIME 05/24/16 Lisinopril/Hydrochlorothiazide [Lisinopril-Hctz 10-12.5 mg Tab] 10 each PO DAILY 05/24/16 Canagliflozin [Invokana] 300 mg PO DAILY 06/23/16 Insulin Glargine,Hum.rec.anlog [Lantus Solostar] 80 unit SQ BID 06/23/16 Insulin Lispro [Humalog] 10 unit SUBCUT TIDWM PRN 06/23/16 Diazepam [Valium] 2 mg PO BEDTIME 06/27/16 Pantoprazole Sodium [Protonix] 40 mg PO QDAC #30 tablet. 07/01/16 Aspirin [Aspirin EC] 81 mg PO 0800 09/24/16 Ticagrelor [Brilinta] 90 mg PO BID 09/24/16 Docusate Sodium [Colace] 100 mg PO DAILY PRN 11/26/16 Gabapentin [Neurontin] 300 mg PO TID 03/28/17 Cephalexin [Keflex] 500 mg PO Q8HR #10 capsule 04/03/17 Meclizine HCl 12.5 mg PO Q6-8H PRN #10 tablet 04/23/17
[2017-04-23 17:55] VITALS: BP 101/58
--- NOTE | 2017-04-23 18:16 | CT ---
EXAM: CT head without contrast 04/23/2017. Sagittal and coronal reformatted images obtained HISTORY: Dizziness COMPARISON: 10/07/2016 FINDINGS: There is no evidence of intracranial hemorrhage. The midline is maintained. There is no h ydrocephalus. Generalized atrophy and chronic small vessel ischemic changes. No cerebellar tonsilla r ectopia. Evaluation of the calvarium shows no fracture. The mastoid air cells are normally pneuma tized. IMPRESSION: No acute intracranial abnormality.
--- NOTE | 2017-04-23 18:19 | CT ---
EXAM: CT cervical spine without contrast HISTORY: Fall with neck pain TECHNIQUE: Multi-slice transaxial helical with coronal and sagittal reformatted views. COMPARISON: None FINDINGS: The C6-C7 intervertebral joint space is severely narrowed. The other intervertebral level s are mildly narrowed diffusely. The cervical lordosis is decreased. The vertebrae have normal heigh t and alignment. No acute fractures or lithesis are observed. The prevertebral soft tissues have nor mal width. The facet alignment is appropriate. No cervical ribs are appreciated. Segmental analysis: C2-C3: No minimal disc protrusion effaces the thecal sac without central canal or neural foramen sten osis. C3-C4: A minimal disc spur complex effaces the thecal sac. The central canal diameter is mildly narr owed. The right facet and uncovertebral joint hypertrophic with mild right neural foramen stenosis. The left neural foramen is maintained. C4-C5: A mild to spur complex effaces the thecal sac. The central canal diameter is mildly narrowed. The facets and uncovertebral joints are hypertrophic without significant neural foramen stenosis. C5-C6: A mild to moderate disc protrusion effaces the thecal sac. Central canal diameter is mildly n arrowed. No significant neural foramen stenosis. C6-C7: A disc spur complex effaces the thecal sac. Central canal diameter is maintained. The facets and uncovertebral joints are hypertrophic with moderate left neural foramen stenosis. The right tianna ral foramen is maintained. C7-T1: No significant disc herniation, central canal stenosis, or neural foramen stenosis. IMPRESSION: 1. No acute fracture or lithesis. 2. Severe degenerative disc disease at C6-C7 and mild degenerative disc disease at the other interve rtebral levels. 3. Cervical straightening. 4. Mild central canal stenosis and C3-C4, C4-C5, and C5-C6. 5. Neural foramen stenosis; mild right at C3-C4 and moderate left at C6-C7.
--- NOTE | 2017-04-23 18:21 | CT ---
EXAM: CT left foot without intravenous contrast 04/23/2017. Sagittal and coronal reformatted images obtained HISTORY: Achilles pain. Fall COMPARISON: None. FINDINGS: There is no gross soft tissue abnormality. The Achilles insertion site appears intact. T here is a small amount calcification within the distal aspect of the Achilles insertion site. This c ould be due to chronic injury. The osseous structures throughout the foot appear intact without evid ence of fracture. Mild chronic osteoarthritic degenerative change. IMPRESSION: 1. No acute osseous abnormality. 2. The Achilles insertion site is intact. 3. There is a small amount calcification within the distal Achilles which could represent chronic in jury. 4. Chronic osteoarthritic degenerative change throughout the ankle and foot. 5. If there is clinical desire to evaluate for ligamentous or tendinous pathology then MRI could be obtained.
== END 2017-04-23 19:10 | disposition home or self-care (01) ==
LOC: ED 15:04
DX: R42 Dizziness and giddiness (principal); S16.1XXA Strain of muscle, fascia and tendon at neck level, initial encounter; M79.672 Pain in left foot; W19.XXXA Unspecified fall, initial encounter; Z91.81 History of falling; E11.9 Type 2 diabetes mellitus without complications; E78.5 Hyperlipidemia, unspecified; I10 Essential (primary) hypertension; I25.810 Atherosclerosis of coronary artery bypass graft(s) without angina pectoris; I73.9 Peripheral vascular disease, unspecified; Z79.899 Other long term (current) drug therapy
CPT/HCPCS: 36415; 80053; 81001; 85025; 93005; 93010; 99283; 99284

== ENCOUNTER 2017-04-25 20:31 | Outpatient (CLI) | END 2017-04-25 20:32 | disposition short-term general hospital (02) | LOC: AMBL 20:31 | PROVIDERS: ATTEND Internal Medicine Geriatric Medicine | DX: R42 Dizziness and giddiness (principal); M54.2 Cervicalgia; M54.9 Dorsalgia, unspecified; M79.631 Pain in right forearm; M79.652 Pain in left thigh; W19.XXXA Unspecified fall, initial encounter; Z91.81 History of falling ==

== ENCOUNTER 2017-05-27 09:48 | Outpatient (POV) | END 2017-05-27 17:00 | LOC: OUTPT 09:48 | PROVIDERS: ATTEND Otolaryngology | DX: R42 Dizziness and giddiness (principal) ==

== ENCOUNTER 2017-06-03 08:42 | Outpatient (CLI) ==
--- NOTE | 2017-06-03 10:20 | CT ---
EXAM: CT of the abdomen pelvis with contrast History: Abdominal pain. Comparison: CT lumbar spine 06/03/2017, CT abdomen pelvis 04/01/2017 Technique: Multiplanar CT images through the abdomen pelvis were obtained following administration o f IV contrast Findings: Lung bases are clear. Coronary calcifications. No acute osseous abnormalities. Degenerati ve changes of the spine. No gallstones identified by CT. No focal liver or splenic lesions. 1.3 cm benign cyst within the ri ght kidney. No enhancing renal masses. Adrenal glands are within normal limits. Pancreas is unrema rkable. No bowel obstruction. No free air. No ascites. Mild atherosclerotic vascular calcificatio ns. No lymphadenopathy. Bladder is mild to moderately distended. There is no bladder wall thickeni ng. Prostate is not enlarged. No perirectal inflammation. The appendix is normal. Impression: 1. No acute intra-abdominal or pelvic process. 2. Simple right renal cyst.
--- NOTE | 2017-06-03 10:32 | CT ---
EXAM: CT of the lumbar spine without contrast History: Lower back pain. Comparison: Lumbar spine CT 12/17/2016 Technique: Multiplanar CT images through the lumbar spine were obtained without the administration o f IV contrast Findings: Atherosclerotic vascular calcifications. Mild to moderate bladder distension. No acute fracture or subluxation of the lumbar spine. Stable mild retrolisthesis of L5 on S1 and L3 on L4. No change in the severe disc space narrowing at L5-S1 and moderate to severe disc space narro wing at L3-L4 and L4-L5 as well as L1-L2. T12-L1: No significant disc bulge or central canal stenosis. No significant bony neural foraminal na rrowing. L1-L2: Small disc bulge effacing the anterior thecal sac with no significant central canal stenosis. Mild bilateral bony neural foraminal narrowing secondary to ligamentous and facet hypertrophy. L2-L3: Small to modest disc bulge effacing the anterior thecal sac with mild central canal stenosis. Mild to moderate bilateral bony neural foraminal narrowing secondary to ligamentous and facet hypert rophy. L3-L4: Modest left paracentral disc protrusion effacing the anterior thecal sac with moderate central canal stenosis. Severe left and mild to moderate right bony neural foraminal narrowing secondary to ligamentous and facet hypertrophy L4-L5: Modest left paracentral disc protrusion effacing the anterior thecal sac with moderate centra l canal stenosis. Severe left and mild to moderate right bony neural foraminal narrowing secondary t o ligamentous and facet hypertrophy. L5-S1: Small posterior disc osteophyte complex with no significant bony central canal stenosis. Sev ere bilateral bony neural foraminal narrowing secondary to ligamentous and facet perching feet. Impression: 1. No acute osseous abnormality of the lumbar spine. 2. Degenerative changes with level by level analysis as detailed above not significantly changed com pared to the prior study.
== END 2017-06-03 08:43 | disposition home or self-care (01) ==
LOC: RAD 08:42
PROVIDERS: ATTEND Internal Medicine
DX: M54.5 Low back pain (principal); R10.9 Unspecified abdominal pain

== ENCOUNTER 2017-07-21 10:02 | Emergency (ER) | payer OTHER ==
[2017-07-21 10:17] VITALS: BP 160/89; TEMP 96.8; BMI 34.5
--- NOTE | 2017-07-21 11:03 | ED.PDOC ---
General ED Provider: Dr. CAYETANO BUSBY Chief Complaint: Back Pain Stated Complaint: Severe back pain. 51 y/o white male patient presents for evaluation of his chief complaint of severe lower back pain. States he was WEEDEATING this past THURSDAY at which time his foot became stuck in some mud resulting in straining-twisting his back falling to the ground. Stated his is unable to STRAIGHTEN UP WHEN STANDING. In addition was scheuled for colonoscopy this for evaluation of abnormal sensation in his Rectum-" it feel numb". States similar to hands and fingers getting numb. Is was intermittent and since injury sensation has intensified with pressure/numb sensation to the area of his rectum. Time Seen by Physician: 10:30 Mode of Arrival: Walk-In Information Source: Patient Primary Care Provider: AIME MONROE Nursing and Triage Documentation Reviewed and Agree: Yes Reviewed sepsis parameters & appropriate labs ordered?: Yes System Inflammatory Response Syndrome: Not Applicable Sepsis Protocol: For patient's 13 years and over: Temp is 96.8 and below OR 101 and greater Pulse >90 BPM Resp >20/minute Acutely Altered Mental Status Are patient's symptoms suggestive of a new infection, such as: -Pneumonia -Skin, Soft Tissue -Endocarditis -UTI -Bone, Joint Infection -Implantable Device -Acute Abdominal Infection -Wound Infection -Meningitis -Blood Stream Catheter Infection -Unknown System Inflammatory Response Syndrome: Not Applicable Musculoskeletal Complaint Exam - Back Pain Complaint/Exam Symptoms Are: Still present Timing: Intermittent Episodes Lasting: Hours Initial Severity: Moderate Current Severity: Mild Location: Reports: Diffuse Character: Reports: Sharp, Aching, Throbbing, Stiffness, Burning Aggravating: Reports: Movements Alleviating: Reports: Rest (Denies Bowel or Bladder dsyfunction States PCP aware of his Rectal symptoms) Associated Signs and Symptoms: Denies: Swelling, Redness, Bruising, Fever, Weakness, Numbness, Tingling (rectal numbness sensation ), Abdominal pain, Flank pain, Bladder incontinence, Bowel incontinence, Weight loss, Pain with weight bearing Related History: Denies: Similar episode, Occupational injury, Previous back injury TAD Risk Factors: Reports: None AAA Risk Factors: Reports: None Cauda Equina Risk Factors: Reports: Perineal anesthesia Epidural Abcess Risk Factors: Reports: None Paraspinal Muscle Tenderness: No Paraspinal Muscle Spasm: No Scoliosis: No Lordosis: No Kyphosis: No SLR Test: Right Negative, Left Negative Focal Weakness: Present: None Focal Sensory Loss: Present: None Gait: Present: Normal Differential Diagnoses: Cauda Equina Syndrome, Strain, Sprain Review of Systems - Review Of Systems Constitutional: Reports: No symptoms Eyes: Reports: No symptoms Ears, Nose, Mouth, Throat: Reports: No symptoms Respiratory: Reports: No symptoms Cardiac: Reports: No symptoms GI: Reports: No symptoms : Reports: No symptoms Musculoskeletal: Reports: Back pain Skin: Reports: No symptoms Neurological: Reports: No symptoms Endocrine: Reports: No symptoms Hematologic/Lymphatic: Reports: No symptoms All Other Systems: Reviewed and Negative Past Medical History - Past Medical History Previously Healthy: Yes Endocrine: Reports: DM 2 Cardiovascular: Reports: CAD Respiratory: Reports: None Hematological: Reports: None Gastrointestinal: Reports: None Genitourinary: Reports: Kidney stones Neuro/Psych: Reports: None Musculoskeletal: Reports: Arthritis, Back Pain Cancer: Reports: None Other Pertinent Past Medical History: Shingles - Surgical History General Surgical History: Reports: CABG (2014), Back Surgery (left knee surgery , right shoulder, back surgery x 4) - Family History Family History: Reports: Unknown - Social History Smoking Status: Former smoker Hx Substance Use: No Alcohol Screening: None - Immunizations Influenza Vaccine within 12 Months: No Pneumococcal Vaccine up to Date: No Physical Exam - Physical Exam Appearance: Well-appearing, No pain distress, Well-nourished Ill-appearing: None Pain Distress: None Eyes: MOUNA, EOMI, Conjunctiva clear ENT: Ears normal, Nose normal, Oropharynx normal Respiratory: Airway patent, Breath sounds clear, Breath sounds equal, Respirations nonlabored Cardiovascular: RRR, Pulses normal, No rub, No murmur GI/: Soft (AMELIA -no perineal paresthesia or loss of sensation. No findings to AMELIA. Denies loss of Bowel /bladder control), Nontender, No masses, Bowel sounds normal, No Organomegaly Musculoskeletal: Normal strength (Tenderness to palpation over BL lumbar spine and RT SI), ROM intact, No edema, No calf tenderness Skin: Warm, Dry, Normal color Neurological: Sensation intact, Motor intact, Reflexes intact, Cranial nerves intact, Alert, Oriented Psychiatric: Affect appropriate, Mood appropriate Critical Care Note - Critical Care Note Total Time (mins): 0 Course - Course Orders, Labs, Meds: Orders Category Date Time Status OCCULT BLOOD, STOOL Stat LAB 07/21/17 13:04 Uncollected Acetaminophen [Tylenol] MEDS 07/21/17 11:41 Discontinued 650 mg PO ONCE STA CT LUMBAR SPINE W/O CONTRAST Stat RADS 07/21/17 11:[address] PELVIS W/O CONTRAST Stat RADS 07/21/17 11:43 Completed Medications Discontinued Medications Generic Name Dose Route Start Last Admin Trade Name Fara PRN Reason Stop Dose Admin Acetaminophen 650 mg 07/21/17 11:41 07/21/17 12:05 Tylenol PO 07/21/17 11:42 650 mg ONCE STA Administration Vital Signs: Temp Pulse Resp BP Pulse Ox 07/21/17 10:03 96.8 F L 94 H 18 160/89 H 97 Departure - Departure Time of Disposition: 13:10 Disposition: HOME SELF-CARE Discharge Problem: Lumbar back pain, Degenerative lumbar spinal stenosis Discharge Problem: (Ruled Out): Spinal arthritis deformans Instructions: Low Back Strain (ED), Chronic Back Pain (ED) Condition: Fair Pt referred to PMD for follow-up: Yes (Needs to follow up with PCP and spinal specialist) IPMP verified?: No Additional Instructions: Remain on existing home analgesics Keep apt for colonoscopy this See PCP in 1 week Allergies/Adverse Reactions: Allergies butorphanol [From Stadol] Adverse Reaction (Verified 07/21/17 10:09) ketorolac [From Toradol] Adverse Reaction (Verified 07/21/17 10:09) orphenadrine [From Norflex] Adverse Reaction (Verified 07/21/17 10:09) Home Medications: Ambulatory Orders Atorvastatin Calcium [Lipitor] 40 mg PO BEDTIME 05/24/16 Lisinopril/Hydrochlorothiazide [Lisinopril-Hctz 10-12.5 mg Tab] 10 each PO DAILY 05/24/16 Insulin Lispro [Humalog] 10 unit SUBCUT TIDWM PRN 06/23/16 Ticagrelor [Brilinta] 90 mg PO BID 09/24/16 Aspirin 81 mg PO ONCE 05/27/17 Diazepam 2 mg PO BEDTIME 05/27/17 Gabapentin 300 mg PO TID 05/27/17 Insulin Glargine,Hum.rec.anlog [Lantus] 80 unit SQ BID vial 05/27/17 Pantoprazole Sodium [Protonix] 25 mg PO DAILY 05/27/17 Disposition Discussed With: Patient
[2017-07-21] MEDS ORDERED: TYLENOL PO STA (11:41)
--- NOTE | 2017-07-21 12:24 | CT ---
EXAM: CT lumbar spine without contrast. HISTORY: Pain in the lower back after twisting injury COMPARISON: CT lumbar spine 06/03/2017 and multiple priors TECHNIQUE: Serial axial images of the spine were obtained from the lower thoracic spine through the pelvis without contrast. These were viewed in multiple planes. FINDINGS: Vertebral bodies demonstrate no compression fracture. There is 0.5 cm of retrolisthesis o f L5 on S1. No additional areas of subluxation are present. There are disc osteophytes and moderate facet arthropathy throughout the remaining lumbar spine. There is no lytic or blastic lesion. Ther e is no abnormal curvature. The posterior processes and the transverse processes are normal. There is degenerative disease of the right sacroiliac joint. L1-L2: There is a small broad-based disc bulge and facet arthropathy with no significant central or n eural foraminal narrowing. L2-L3: There is a broad-based disc bulge and facet arthropathy with mild bilateral neural foraminal n arrowing. L3-L4: Large broad-based disc bulge and significant facet arthropathy with severe left neural foramin al narrowing. L4-L5: Broad-based disc bulge with facet arthropathy and a moderate to severe left and mild right tianna ral foraminal narrowing. L5-S1: Broad-based disc bulge and facet arthropathy with bilateral severe neural foraminal narrowing. Limited views of the soft tissues are unremarkable. IMPRESSION: 1. No acute compression fracture with grade 1 retrolisthesis of L5 on S1. 2. Multilevel degenerative disease with level by level measurements as above with severe bilateral n eural foraminal narrowing noted L5-S1.
--- NOTE | 2017-07-21 12:25 | CT ---
EXAM: CT pelvis without contrast HISTORY: Fall COMPARISON: CT abdomen pelvis 06/03/2017 TECHNIQUE: CT pelvis performed without intravenous contrast. Coronal and sagittal reformatted image s obtained. FINDINGS: Small bilateral fat containing inguinal hernias. Small fat-containing periumbilical herni a. Visualized bowel unremarkable. Bladder is distended. Prostate top normal in size. Mild to mode rate atherosclerosis. There are degenerative changes in the spine that are incompletely imaged. Ple ase refer to separate report CT lumbar spine no fracture or dislocation. Sacroiliac joints intact wi th partial bridging on the right. Mild osteoarthritis bilateral hips with mild joint space narrowing and small osteophyte formation. IMPRESSION: 1. No fracture or dislocation. 2. Mild osteoarthritis of the hips. 3. Distended bladder. 4. Atherosclerosis.
== END 2017-07-21 13:22 | disposition home or self-care (01) ==
LOC: ED 10:02
DX: M54.5 Low back pain (principal); M48.061 Spinal stenosis, lumbar region without neurogenic claudication; R19.8 Other specified symptoms and signs involving the digestive system and abdomen; R20.0 Anesthesia of skin; X50.1XXA Overexertion from prolonged static or awkward postures, initial encounter; W19.XXXA Unspecified fall, initial encounter
CPT/HCPCS: 82272; 99283

== ENCOUNTER 2017-09-13 10:12 | Emergency (ER) | payer OTHER ==
[2017-09-13 10:29] VITALS: BP 127/90; TEMP 97.6; BMI 34.9
--- NOTE | 2017-09-13 10:33 | ED.PDOC ---
General ED Provider: Dr. CAYETANO BOWLING-ER Chief Complaint: Earache Stated Complaint: my ear hurts--adriane had the same thing on the other ear Time Seen by Physician: 10:32 Mode of Arrival: Walk-In Information Source: Patient Exam Limitations: No limitations Primary Care Provider: AIME ESPINO Nursing and Triage Documentation Reviewed and Agree: Yes Does patient meet sepsis criteria?: No System Inflammatory Response Syndrome: Not Applicable Sepsis Protocol: For patient's 13 years and over: Temp is 96.8 and below OR 101 and greater Pulse >90 BPM Resp >20/minute Acutely Altered Mental Status Are patient's symptoms suggestive of a new infection, such as: -Pneumonia -Skin, Soft Tissue -Endocarditis -UTI -Bone, Joint Infection -Implantable Device -Acute Abdominal Infection -Wound Infection -Meningitis -Blood Stream Catheter Infection -Unknown Skin Complaint Exam - Skin/Soft Tissue Complaint/Exam Onset/Duration: 2 dasy Symptoms Are: Still present Timing: Constant Initial Severity: Mild Current Severity: Mild Location: right external ear Character: Reports: Redness, Swelling, Painful Aggravating: Reports: Touch Alleviating: Reports: None Associated Signs and Symptoms: Reports: Tenderness, Red streaks Related History: Reports: Insect bite/sting Related Surgical History: Reports: None Recent Exposure to Others w/Similar Symptoms: No Skin Findings: Present: Erythema Joint Tenderness Present: No Differential Diagnoses: Cellulitis, Infection, Other Review of Systems - Review Of Systems Constitutional: Reports: No symptoms Eyes: Reports: No symptoms Ears, Nose, Mouth, Throat: Reports: No symptoms Respiratory: Reports: No symptoms Cardiac: Reports: No symptoms GI: Reports: No symptoms : Reports: No symptoms Musculoskeletal: Reports: No symptoms Skin: Reports: Rash Neurological: Reports: No symptoms Endocrine: Reports: No symptoms Hematologic/Lymphatic: Reports: No symptoms All Other Systems: Reviewed and Negative Past Medical History - Past Medical History Previously Healthy: Yes Endocrine: Reports: DM 2 Cardiovascular: Reports: CAD Respiratory: Reports: None Hematological: Reports: None Gastrointestinal: Reports: None Genitourinary: Reports: Kidney stones Neuro/Psych: Reports: None Musculoskeletal: Reports: Arthritis, Back Pain Cancer: Reports: None Other Pertinent Past Medical History: Shingles - Surgical History General Surgical History: Reports: CABG (2014), Back Surgery (left knee surgery , right shoulder, back surgery x 4) - Family History Family History: Reports: Unknown - Social History Smoking Status: Former smoker Hx Substance Use: No Alcohol Screening: None - Immunizations Influenza Vaccine within 12 Months: No Pneumococcal Vaccine up to Date: No Physical Exam - Physical Exam Appearance: Well-appearing, No pain distress, Well-nourished Eyes: MOUNA ENT: Ears normal, Nose normal, Oropharynx normal Neck: Supple Respiratory: Airway patent, Breath sounds clear, Breath sounds equal, Respirations nonlabored Cardiovascular: RRR, Pulses normal, No rub, No murmur GI/: Soft, Nontender, No masses, Bowel sounds normal, No Organomegaly Musculoskeletal: Normal strength, ROM intact, No edema, No calf tenderness Skin: Warm, Dry, Normal color Neurological: Sensation intact, Motor intact, Reflexes intact, Cranial nerves intact, Alert, Oriented Psychiatric: Affect appropriate, Mood appropriate Critical Care Note - Critical Care Note Total Time (mins): 0 Course - Course Vital Signs: Temp Pulse Resp BP Pulse Ox 09/13/17 10:14 97.6 F 88 16 127/90 96 Departure - Departure Time of Disposition: 10:34 Disposition: HOME SELF-CARE Discharge Problem: Ear wound Qualifiers: Encounter type: initial encounter Open wound type: unspecified Laterality: right Qualified Code(s): S01.301A - Unspecified open wound of right ear, initial encounter Instructions: Acute Wound Care (ED) Condition: Good Pt referred to PMD for follow-up: No IPMP verified?: No Additional Instructions: zovirax 800mg qid x 7 days---norco 7.5mg q 4hrs prn pain#10---clindamycin 300mg tid x 7days---bactroban ointment apply to the ear bid---f/u wt dr espino this week Allergies/Adverse Reactions: Allergies butorphanol [From Stadol] Adverse Reaction (Verified 09/13/17 10:20) ketorolac [From Toradol] Adverse Reaction (Verified 09/13/17 10:20) orphenadrine [From Norflex] Adverse Reaction (Verified 09/13/17 10:20) Home Medications: Ambulatory Orders Atorvastatin Calcium [Lipitor] 40 mg PO BEDTIME 05/24/16 Lisinopril/Hydrochlorothiazide [Lisinopril-Hctz 10-12.5 mg Tab] 10 each PO DAILY 05/24/16 Insulin Lispro [Humalog] 10 unit SUBCUT TIDWM PRN 06/23/16 Ticagrelor [Brilinta] 90 mg PO BID 09/24/16 Aspirin 81 mg PO ONCE 05/27/17 Diazepam 2 mg PO BEDTIME 05/27/17 Gabapentin 300 mg PO TID 05/27/17 Insulin Glargine,Hum.rec.anlog [Lantus] 80 unit SQ BID vial 05/27/17 Pantoprazole Sodium [Protonix] 25 mg PO DAILY 05/27/17 Disposition Discussed With: Patient
== END 2017-09-13 11:01 | disposition home or self-care (01) ==
LOC: ED 10:12
DX: S01.301A Unspecified open wound of right ear, initial encounter (principal)
CPT/HCPCS: 99282

== ENCOUNTER 2017-09-24 14:30 | Emergency (ER) ==
[2017-09-24] MEDS ORDERED: DILAUDID 0.5 MG/0.5 ML SYRINGE IM STA (14:36)
[2017-09-24] MEDS ORDERED: ZOFRAN 4 MG/2 ML IM STA (14:37)
[2017-09-24 14:42] VITALS: BP 103/73; TEMP 99.5; BMI 34.8
--- NOTE | 2017-09-24 15:24 | CT ---
EXAM: CT of the lumbar spine without contrast History: Lower back pain radiating down left leg. Comparison: Lumbar spine CT 07/21/2017 Technique: Multiplanar CT images of the lumbar spine were obtained without the administration of IV c ontrast. Findings: No acute fracture or subluxation of the lumbar spine. No change in the multilevel degener ative disc space narrowing which is moderate to severe at L3-L4, L4-L5 and L5-S1 with endplate scler osis, disc phenomenon. T12-L1: No significant bony central canal stenosis or bony neural foraminal narrowing. L1-L2: No significant bony central canal stenosis or bony neural foraminal narrowing. L2-L3: Mild to moderate bony central canal stenosis. Moderate bilateral bony neural foraminal narro wing secondary to ligamentous and facet hypertrophy. L3-L4: Mild to moderate bony central canal stenosis. Severe left and mild to moderate right bony ne ural foraminal narrowing secondary to ligamentous and facet hypertrophy. L4-L5: Mild to moderate bony central canal stenosis. Severe left and mild to moderate right bony ne ural foraminal narrowing secondary to ligamentous and facet hypertrophy. L5-S1: No significant bony central canal stenosis. Severe bilateral bony neural foraminal narrowing secondary to ligamentous facet perching feet and probably worse on the left. Impression: 1. No acute osseous abnormality of the lumbar spine. 2. Level by level analysis with severe left-sided bony neural foraminal narrowing from L3-S1.
--- NOTE | 2017-09-24 16:12 | ED.PDOC ---
General ED Provider: Dr. BERNA ENAMORADO Chief Complaint: Back Pain Stated Complaint: low back pain Time Seen by Physician: 14:32 (seen with pt's RN at all times ) Mode of Arrival: Wheelchair Information Source: Patient Exam Limitations: No limitations Primary Care Provider: AIME MONROE Nursing and Triage Documentation Reviewed and Agree: Yes Does patient meet sepsis criteria?: No If yes, has appropriate treatment been initiated?: No System Inflammatory Response Syndrome: Not Applicable Sepsis Protocol: For patient's 13 years and over: Temp is 96.8 and below OR 101 and greater Pulse >90 BPM Resp >20/minute Acutely Altered Mental Status Are patient's symptoms suggestive of a new infection, such as: -Pneumonia -Skin, Soft Tissue -Endocarditis -UTI -Bone, Joint Infection -Implantable Device -Acute Abdominal Infection -Wound Infection -Meningitis -Blood Stream Catheter Infection -Unknown Musculoskeletal Complaint Exam - Back Pain Complaint/Exam Mechanism of Injury: Reports: No known trauma, Other (history of back pain will have surgery in 3 weeks ) Onset/Duration: 1 day Symptoms Are: Still present Timing: Intermittent Episodes Lasting: Hours Initial Severity: Severe Current Severity: Severe Location: Reports: Discrete Character: Reports: Aching Aggravating: Reports: Movements, Lifting, Bending, Walking Alleviating: Reports: Rest, Position Associated Signs and Symptoms: Denies: Swelling, Redness, Bruising, Fever, Weakness, Numbness, Tingling, Abdominal pain, Flank pain, Bladder incontinence, Bowel incontinence, Weight loss, Pain with weight bearing TAD Risk Factors: Reports: None AAA Risk Factors: Reports: Hypertension Cauda Equina Risk Factors: Reports: None Epidural Abcess Risk Factors: Reports: None Focal Tenderness: No Paraspinal Muscle Tenderness: No Paraspinal Muscle Spasm: No Scoliosis: No Lordosis: No Kyphosis: No SLR Test: Right Positive, Left Positive Hip Motion Testing Pain: Right Negative, Left Negative Focal Weakness: Present: None Focal Sensory Loss: Present: None Gait: Present: Unable Differential Diagnoses: Arthritis, Strain, Sprain Review of Systems - Review Of Systems Constitutional: Reports: No symptoms Eyes: Reports: No symptoms Ears, Nose, Mouth, Throat: Reports: No symptoms Respiratory: Reports: No symptoms Cardiac: Reports: No symptoms GI: Reports: No symptoms : Reports: No symptoms Musculoskeletal: Reports: Back pain Skin: Reports: No symptoms Neurological: Reports: No symptoms Endocrine: Reports: No symptoms Hematologic/Lymphatic: Reports: No symptoms All Other Systems: Reviewed and Negative Past Medical History - Past Medical History Previously Healthy: Yes Endocrine: Reports: DM 2 Cardiovascular: Reports: CAD Respiratory: Reports: None Hematological: Reports: None Gastrointestinal: Reports: None Genitourinary: Reports: Kidney stones Neuro/Psych: Reports: None Musculoskeletal: Reports: Arthritis, Back Pain Cancer: Reports: None Other Pertinent Past Medical History: Shingles - Surgical History General Surgical History: Reports: CABG (2014), Back Surgery (left knee surgery , right shoulder, back surgery x 4) - Family History Family History: Reports: Unknown - Social History Smoking Status: Former smoker Hx Substance Use: No Alcohol Screening: None - Immunizations Influenza Vaccine within 12 Months: No Pneumococcal Vaccine up to Date: No Physical Exam - Physical Exam Appearance: Well-appearing, No pain distress, Well-nourished Eyes: MOUNA, EOMI, Conjunctiva clear ENT: Ears normal, Nose normal, Oropharynx normal Respiratory: Airway patent, Breath sounds clear, Breath sounds equal, Respirations nonlabored Cardiovascular: RRR, Pulses normal, No rub, No murmur GI/: Soft, Nontender, No masses, Bowel sounds normal, No Organomegaly Musculoskeletal: Normal strength, ROM intact, No edema, No calf tenderness Skin: Warm, Dry, Normal color Neurological: Sensation intact, Motor intact, Reflexes intact, Cranial nerves intact, Alert, Oriented Psychiatric: Affect appropriate, Mood appropriate Interpretation - Radiology Interpretation Radiology Interpretation By: Radiologist Radiology Results: No acute changes Critical Care Note - Critical Care Note Total Time (mins): 0 Course - Course Orders, Labs, Meds: Orders Category Date Time Status Hydromorphone HCl [Dilaudid 0.5 mg/0.5 ml Syringe] MEDS 09/24/17 14:36 Discontinued 0.5 mg IM ONCE STA Ondansetron HCl/Pf [Zofran 4 mg/2 ml] MEDS 09/24/17 14:37 Discontinued 4 mg IM ONCE STA CT LUMBAR SPINE W/O CONTRAST Stat RADS 09/24/17 14:36 Completed Medications Discontinued Medications Generic Name Dose Route Start Last Admin Trade Name Freq PRN Reason Stop Dose Admin Hydromorphone HCl 0.5 mg 09/24/17 14:36 09/24/17 15:07 Dilaudid IM 09/24/17 14:37 0.5 mg ONCE STA Administration Ondansetron HCl 4 mg 09/24/17 14:37 09/24/17 15:05 Zofran 4 Mg/2 Ml IM 09/24/17 14:38 4 mg ONCE STA Administration Vital Signs: Temp Pulse Resp BP Pulse Ox 09/24/17 14:32 99.5 F 86 20 103/73 97 Departure - Departure Time of Disposition: 16:12 Disposition: HOME SELF-CARE Discharge Problem: Low back pain Qualifiers: Chronicity: acute Back pain laterality: unspecified Sciatica presence: without sciatica Qualified Code(s): M54.5 - Low back pain Instructions: Acute Low Back Pain (ED), Chronic Back Pain (ED), Arthralgia (ED) , Back Pain (ED), Lower Back Exercises (ED) Condition: Good Pt referred to PMD for follow-up: Yes IPMP verified?: No Additional Instructions: Please call your Family Physician as soon as possible to schedule a follow-up appointment. Allergies/Adverse Reactions: Allergies butorphanol [From Stadol] Adverse Reaction (Verified 09/24/17 14:46) ketorolac [From Toradol] Adverse Reaction (Verified 09/24/17 14:46) orphenadrine [From Norflex] Adverse Reaction (Verified 09/24/17 14:46) Home Medications: Ambulatory Orders Atorvastatin Calcium [Lipitor] 40 mg PO BEDTIME 05/24/16 Lisinopril/Hydrochlorothiazide [Lisinopril-Hctz 10-12.5 mg Tab] 10 each PO DAILY 05/24/16 Insulin Lispro [Humalog] 10 unit SUBCUT TIDWM PRN 06/23/16 Ticagrelor [Brilinta] 90 mg PO BID 09/24/16 Aspirin 81 mg PO ONCE 05/27/17 Diazepam 2 mg PO BEDTIME 05/27/17 Gabapentin 300 mg PO TID 05/27/17 Insulin Glargine,Hum.rec.anlog [Lantus] 90 unit SQ BID vial 05/27/17 Pantoprazole Sodium [Protonix] 25 mg PO DAILY 05/27/17 Hydrocodone Bit/Acetaminophen [[place]cf[place] 5-325] 1 each PO BID PRN 09/24/17
== END 2017-09-24 16:40 | disposition home or self-care (01) ==
LOC: ED 14:30
DX: M54.5 Low back pain (principal)
CPT/HCPCS: 96372; 99283

== ENCOUNTER 2017-12-15 15:24 | Emergency (ER) | payer OTHER ==
[2017-12-15 15:33] VITALS: BP 103/71; TEMP 98.1; BMI 33.0
[2017-12-15] MEDS ORDERED: HUMULIN R SUBCUT STA (16:33)
[2017-12-15] MEDS ORDERED: LIDOCAINE HCL 1% SDV IM STA (16:35)
[2017-12-15] MEDS ORDERED: ROCEPHIN IM STA (16:35)
--- NOTE | 2017-12-15 16:36 | ED.PDOC ---
General ED Provider: Dr. BERNA ENAMORADO Chief Complaint: Rash Stated Complaint: RASH X1 MONTH Time Seen by Physician: 15:30 (THE RASH CHRONIC ISSUE AND HAS PAIN BOTH FEET ) Mode of Arrival: Walk-In Information Source: Patient Exam Limitations: No limitations Primary Care Provider: AIME MONROE Nursing and Triage Documentation Reviewed and Agree: Yes Does patient meet sepsis criteria?: No System Inflammatory Response Syndrome: Not Applicable (SEE PHOTOS) Sepsis Protocol: For patient's 13 years and over: Temp is 96.8 and below OR 101 and greater Pulse >90 BPM Resp >20/minute Acutely Altered Mental Status Are patient's symptoms suggestive of a new infection, such as: -Pneumonia -Skin, Soft Tissue -Endocarditis -UTI -Bone, Joint Infection -Implantable Device -Acute Abdominal Infection -Wound Infection -Meningitis -Blood Stream Catheter Infection -Unknown Skin Complaint Exam - Skin/Soft Tissue Complaint/Exam Onset/Duration: 1 WMOTH FEELS PAIN ON BOTH FEET Symptoms Are: Still present Timing: Constant Initial Severity: Mild Current Severity: Mild Character: Reports: Swelling, Painful Aggravating: Reports: None Alleviating: Reports: None Associated Signs and Symptoms: Reports: Red streaks (FEET SEE PHOTOS) Related Surgical History: Reports: None Recent Exposure to Others w/Similar Symptoms: No Skin Findings: Present: Erythema Differential Diagnoses: Cellulitis, Infection, Other (VASCULITIS) Review of Systems - Review Of Systems Constitutional: Reports: No symptoms Eyes: Reports: No symptoms Ears, Nose, Mouth, Throat: Reports: No symptoms Respiratory: Reports: No symptoms Cardiac: Reports: No symptoms GI: Reports: No symptoms : Reports: No symptoms Musculoskeletal: Reports: No symptoms Skin: Reports: Rash (SEE PHOTOS) Neurological: Reports: No symptoms Endocrine: Reports: No symptoms Hematologic/Lymphatic: Reports: No symptoms All Other Systems: Reviewed and Negative Past Medical History - Past Medical History Previously Healthy: Yes Endocrine: Reports: DM 2 Cardiovascular: Reports: CAD Respiratory: Reports: None Hematological: Reports: None Gastrointestinal: Reports: None Genitourinary: Reports: Kidney stones Neuro/Psych: Reports: None Musculoskeletal: Reports: Arthritis, Back Pain Cancer: Reports: None Other Pertinent Past Medical History: Shingles - Surgical History General Surgical History: Reports: CABG (2014), Back Surgery (left knee surgery , right shoulder, back surgery x 4) - Family History Family History: Reports: Unknown - Social History Smoking Status: Former smoker, Dips snuff Hx Substance Use: No Alcohol Screening: None - Immunizations Tetanus Shot up to Date: Yes Influenza Vaccine within 12 Months: No Pneumococcal Vaccine up to Date: No Physical Exam - Physical Exam Appearance: Well-appearing, No pain distress, Well-nourished Eyes: MOUNA, EOMI, Conjunctiva clear ENT: Ears normal, Nose normal, Oropharynx normal Respiratory: Airway patent, Breath sounds clear, Breath sounds equal, Respirations nonlabored Cardiovascular: RRR, Pulses normal, No rub, No murmur GI/: Soft, Nontender, No masses, Bowel sounds normal, No Organomegaly Musculoskeletal: Normal strength, ROM intact, No edema, No calf tenderness Skin: Warm, Dry (RASH BILATERAL LOWER EXT SEE PHOTOS ) Neurological: Sensation intact, Motor intact, Reflexes intact, Cranial nerves intact, Alert, Oriented Psychiatric: Affect appropriate, Mood appropriate Physician Notification - Case Discussed Physician Notified: PMD Time of Notification: 16:37 (CHANGES ARE CHRONIC ) Critical Care Note - Critical Care Note Total Time (mins): 0 Course - Course Hematology/Chemistry: 12/15/17 16:00 12/15/17 16:00 Orders, Labs, Meds: Lab Review 12/15/17 12/15/17 12/15/17 16:00 16:00 16:00 WBC 8.97 RBC 3.71 L Hgb 10.9 L Hct 33.2 L MCV 89.5 MCH 29.4 MCHC 32.8 RDW Coeff of Maritza 14.4 Plt Count 281 Immature Gran % (Auto) 0.4 Neut % (Auto) 83.6 Lymph % (Auto) 10.9 Burt % (Auto) 3.8 Eos % (Auto) 1.1 Baso % (Auto) 0.2 Immature Gran # (Auto) 0.0 Neut # (Auto) 7.5 H Lymph # (Auto) 1.0 Burt # (Auto) 0.3 L Eos # (Auto) 0.1 Baso # (Auto) 0.0 Sodium 131.4 L Potassium 5.28 H Chloride 96.1 L Carbon Dioxide 23.7 Anion Gap 16.88 BUN 14.0 Creatinine 0.64 Estimated GFR (MDRD) 130.00 BUN/Creatinine Ratio 21.87 Glucose 501.1 H* Lactic Acid 3.71 H Calcium 9.12 Total Bilirubin 0.24 AST 20.8 ALT 28.7 Alkaline Phosphatase 104.4 Total Protein 6.99 Albumin 4.00 Globulin 2.99 Albumin/Globulin Ratio 1.33 Procalcitonin 12/15/17 16:00 WBC RBC Hgb Hct MCV MCH MCHC RDW Coeff of Maritza Plt Count Immature Gran % (Auto) Neut % (Auto) Lymph % (Auto) Burt % (Auto) Eos % (Auto) Baso % (Auto) Immature Gran # (Auto) Neut # (Auto) Lymph # (Auto) Burt # (Auto) Eos # (Auto) Baso # (Auto) Sodium Potassium Chloride Carbon Dioxide Anion Gap BUN Creatinine Estimated GFR (MDRD) BUN/Creatinine Ratio Glucose Lactic Acid Calcium Total Bilirubin AST ALT Alkaline Phosphatase Total Protein Albumin Globulin Albumin/Globulin Ratio Procalcitonin < 0.05 Orders Category Date Time Status BLOOD CULTURE (ED ONLY) Stat LAB 12/15/17 16:00 Received CBC W/ AUTO DIFF Stat LAB 12/15/17 16:00 Completed COMPREHENSIVE METABOLIC PANEL Stat LAB 12/15/17 16:00 Completed LACTIC ACID Stat LAB 12/15/17 16:00 Completed PROCALCITONIN Stat LAB 12/15/17 16:00 Completed Insulin Regular, Human [Humulin R] MEDS 12/15/17 16:33 Stat 7 unit SUBCUT ONCE STA Vital Signs: Temp Pulse Resp BP Pulse Ox 12/15/17 15:28 98.1 F 94 H 16 103/71 98 Departure - Departure Time of Disposition: 16:37 (SPOKE TO PMD SERUM GLUCOSE AND POTASSIUM DISCUSSED PMD STATED THESE CHANGES ARE CHRONIC PT SHOULD BE TREATED WITH INSULIN SQ ) Disposition: HOME SELF-CARE Discharge Problem: Acute hyperkalemia, Hyperkalemia Uncontrolled diabetes mellitus Qualifiers: Diabetes mellitus type: other specified (including MARY KAY) Glycemic state: with hyperglycemia Qualified Code(s): E13.65 - Other specified diabetes mellitus with hyperglycemia Cellulitis Qualifiers: Site of cellulitis of extremity: lower extremity Laterality: unspecified laterality Instructions: Acute Rash (ED), Cellulitis (ED), Hyperkalemia (ED) Condition: Good Pt referred to PMD for follow-up: Yes IPMP verified?: No Additional Instructions: Please call your Family Physician as soon as possible to schedule a follow-up appointment.I SPOKE TO YOUR DOCTOR THE RASH ACCORDING YOUR MD IS CHRONIC AND YOUR BLOOD SUGAR IS HIGH WHICH HE WOULD LIKE TO HAVE ISSUE TREATED AND YOU CAN CONTACT HIM SOON POSSIBLE Prescriptions: Amoxicillin 500 mg PO Q6HR #30 tablet Allergies/Adverse Reactions: Allergies butorphanol [From Stadol] Adverse Reaction (Verified 12/15/17 15:26) ketorolac [From Toradol] Adverse Reaction (Verified 12/15/17 15:26) orphenadrine [From Norflex] Adverse Reaction (Verified 12/15/17 15:26) Home Medications: Ambulatory Orders Atorvastatin Calcium [Lipitor] 40 mg PO BEDTIME 05/24/16 Lisinopril/Hydrochlorothiazide [Lisinopril-Hctz 10-12.5 mg Tab] 10 each PO DAILY 05/24/16 Insulin Lispro [Humalog] 10 unit SUBCUT TIDWM PRN 06/23/16 Ticagrelor [Brilinta] 90 mg PO BID 09/24/16 Aspirin 81 mg PO ONCE 05/27/17 Diazepam 2 mg PO BEDTIME 05/27/17 Gabapentin 300 mg PO TID 05/27/17 Insulin Glargine,Hum.rec.anlog [Lantus] 90 unit SQ BID vial 05/27/17 Pantoprazole Sodium [Protonix] 25 mg PO DAILY 05/27/17 Amoxicillin 500 mg PO Q6HR #30 tablet 12/15/17 Oxycodone-Acetaminophen 10-325 [Percocet 10-325] 1 tab PO Q4H 12/15/17
== END 2017-12-15 17:26 | disposition home or self-care (01) ==
LOC: ED 15:24
DX: E87.5 Hyperkalemia (principal); E11.65 Type 2 diabetes mellitus with hyperglycemia; L03.119 Cellulitis of unspecified part of limb; R21 Rash and other nonspecific skin eruption; M79.672 Pain in left foot; M79.671 Pain in right foot; I25.810 Atherosclerosis of coronary artery bypass graft(s) without angina pectoris; Z79.899 Other long term (current) drug therapy; Z72.0 Tobacco use
CPT/HCPCS: 36415; 80053; 83605; 84145; 85025; 87040; 96372; 99283

== ENCOUNTER 2017-12-17 00:18 | Outpatient (CLI) | END 2017-12-17 00:37 | disposition short-term general hospital (02) | LOC: AMBL 00:18 | PROVIDERS: ATTEND Family Medicine | DX: M79.672 Pain in left foot (principal); M79.671 Pain in right foot; S91.302A Unspecified open wound, left foot, initial encounter; S91.301A Unspecified open wound, right foot, initial encounter ==

== ENCOUNTER 2018-01-25 07:27 | Emergency (ER) | payer OTHER ==
[2018-01-25 07:34] VITALS: BP 152/99; TEMP 97; BMI 31.6
[2018-01-25] MEDS ORDERED: MORPHINE 4 MG/ML SYRINGE IVP STA (07:46)
[2018-01-25] MEDS ORDERED: SODIUM CHLORIDE 1,000 ML IV STA ×3 (07:46→10:57)
[2018-01-25] MEDS ORDERED: ZOFRAN 4 MG/2 ML IVP STA (07:47)
[2018-01-25] MEDS ORDERED: HUMULIN R 100 UNIT in SODIUM CHLORIDE 100 ML IV SCH (09:30)
[2018-01-25] MEDS ORDERED: SODIUM BICARBONATE 7.5% IVP STA (09:48)
[2018-01-25] MEDS ORDERED: HUMULIN R IVP STA (10:02)
--- NOTE | 2018-01-25 10:08 | CT ---
EXAM: CT of the chest with contrast History: Short of breath, chest pain and vomiting, cough. Comparison: Chest CT 04/01/2017, CT abdomen pelvis 01/25/2018 Technique: Multiplanar CT images through the thorax were obtained following administration of IV con trast. Findings: Heart size is normal. Coronary calcifications. Sternotomy wires. No pericardial effusio n. Great vessels are unremarkable. No pathologically enlarged thoracic lymph nodes. No consolidati on. No pleural fluid and no pneumothorax. No suspicious lung masses or lung nodules. For details in the upper abdomen, please see dedicated CT abdomen pelvis done on the same day. No ac [place] osseous abnormalities. Impression: No acute intrathoracic process
--- NOTE | 2018-01-25 10:10 | CT ---
EXAM: CT of the abdomen pelvis with contrast History: Abdominal pain and vomiting. Comparison: CT abdomen pelvis 06/03/2017 Technique: Multiplanar CT images through the abdomen pelvis were obtained following administration o f IV contrast Findings: Lung bases are clear. No acute osseous abnormalities. Postsurgical changes of the lumbar spine. Gallbladder is distended. No focal liver or splenic lesions. 1.5 cm simple right renal cyst. No hy dronephrosis. No perinephric stranding. Adrenal glands are unremarkable. Pancreas is within normal limits. No bowel obstruction. The appendix is normal. Scattered colonic stool. No bladder wall t hickening. Prostate is not enlarged. No perirectal inflammation. Impression: 1. Distended gallbladder. Recommend further evaluation with ultrasound. 2. Simple right renal cyst
--- NOTE | 2018-01-25 10:52 | ED.PDOC ---
General ED Provider: Dr. BERNA ENAMORADO Chief Complaint: Nausea/Vomiting Stated Complaint: N/V, ABDOMINAL CRAMPS Time Seen by Physician: 07:33 (SEEN WITH ENTIRE NURSING STAFF CLAIMS HIS INSULIN WAS STOLEN ) Mode of Arrival: Walk-In Information Source: Patient Exam Limitations: No limitations Primary Care Provider: AIME MONROE Nursing and Triage Documentation Reviewed and Agree: Yes Does patient meet sepsis criteria?: No System Inflammatory Response Syndrome: Not Applicable Sepsis Protocol: For patient's 13 years and over: Temp is 96.8 and below OR 101 and greater Pulse >90 BPM Resp >20/minute Acutely Altered Mental Status Are patient's symptoms suggestive of a new infection, such as: -Pneumonia -Skin, Soft Tissue -Endocarditis -UTI -Bone, Joint Infection -Implantable Device -Acute Abdominal Infection -Wound Infection -Meningitis -Blood Stream Catheter Infection -Unknown GI Complaint Exam - Vomiting/Diarrhea Complaint/Exam Onset/Duration: 3 DAYS Symptoms Are: Resolved Episodes of Vomiting over last 24 Hours: 10 Episodes of Diarrhea Over Last 24 Hours: 0 Initial Severity: Moderate Current Severity: None Character of Vomiting: Reports: Non-bilious Aggravating: Reports: None Alleviating: Reports: None Associated Signs and Symptoms: Reports: Abdominal pain. Denies: Dizziness, Light-headedness, Melena, Hematemesis, Fever, Cramping Non-GI Risk Factors: Reports: None Surgical Obstruction Risk Factors: Reports: None Related Surgical History: Reports: None Abdominal Findings: Present: None Kussmaul Respirations Present: Yes Differential Diagnoses: Dehydration, Gastritis, Viral Gastroenteritis, Bacterial Gastroenteritis, UTI Review of Systems - Review Of Systems Constitutional: Reports: Malaise, Weakness Eyes: Reports: No symptoms Ears, Nose, Mouth, Throat: Reports: No symptoms Respiratory: Reports: No symptoms Cardiac: Reports: No symptoms GI: Reports: Abdominal pain, Vomiting : Reports: No symptoms Musculoskeletal: Reports: No symptoms Skin: Reports: No symptoms Neurological: Reports: No symptoms Endocrine: Reports: No symptoms Hematologic/Lymphatic: Reports: No symptoms All Other Systems: Reviewed and Negative Past Medical History - Past Medical History Previously Healthy: Yes Endocrine: Reports: DM 2 Cardiovascular: Reports: CAD Respiratory: Reports: None Hematological: Reports: None Gastrointestinal: Reports: None Genitourinary: Reports: Kidney stones Neuro/Psych: Reports: None Musculoskeletal: Reports: Arthritis, Back Pain Cancer: Reports: None Other Pertinent Past Medical History: Shingles - Surgical History General Surgical History: Reports: CABG (2014), Back Surgery (left knee surgery , right shoulder, back surgery x 4) - Family History Family History: Reports: Unknown - Social History Smoking Status: Former smoker, Dips snuff Hx Substance Use: No Alcohol Screening: None - Immunizations Influenza Vaccine within 12 Months: No Pneumococcal Vaccine up to Date: No Physical Exam - Physical Exam Appearance: Well-appearing, No pain distress, Well-nourished Ill-appearing: Severe Pain Distress: Severe Eyes: MOUNA, EOMI, Conjunctiva clear ENT: Dry mucosa Respiratory: Airway patent, Breath sounds clear, Breath sounds equal, Respirations nonlabored Cardiovascular: RRR, Pulses normal, No rub, No murmur GI/: Soft, Nontender, No masses, Bowel sounds normal, No Organomegaly Musculoskeletal: Normal strength, ROM intact, No edema, No calf tenderness Skin: Warm, Dry, Normal color Neurological: Sensation intact, Motor intact, Reflexes intact, Cranial nerves intact, Alert, Oriented Psychiatric: Affect appropriate, Mood appropriate Interpretation - Radiology Interpretation Radiology Interpretation By: Radiologist Radiology Results: No acute changes - 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 Rhythm: Sinus - EKG Interpretation Rate: Tachy (OLD INFERIOR WALL [place] BAIATRIAL ENLARGEMENT ) Rhythm: Sinus Rate: Normal Rhythm: Sinus Ectopy: None [place]: NL Re-Evaluation - Re-Evaluation Time of Re-Evaluation: 08:00 Status: Unchanged Vital Signs Stable: Yes Pain Level: 0 Appearance: NAD Lungs: Clear Skin: Warm and Dry Neuro: Alert and Oriented X3 CV: RRR - Re-Evaluation Time of Re-Evaluation: 10:00 Status: Improved Vital Signs Stable: Yes Pain Level: 0 Appearance: NAD Skin: Warm and Dry Neuro: Alert and Oriented X3 CV: RRR (IMPROVED TRANSFER DISCUSSED) Physician Notification - Case Discussed Physician Notified: PATRICK Time of Notification: 10:00 (TRANSFER ) Physician Notified: KATHY Time of Notification: 10:55 (TRANSFER NOW) Critical Care Note - Critical Care Note Total Time (mins): 0 Course - Course Hematology/Chemistry: 01/25/18 08:05 01/25/18 08:05 Orders, Labs, Meds: Lab Review 01/25/18 01/25/18 01/25/18 08:05 08:05 08:05 WBC 16.81 H RBC 5.57 Hgb 15.8 Hct 48.0 MCV 86.2 MCH 28.4 MCHC 32.9 RDW Coeff of Maritza 14.3 Plt Count 463 H Immature Gran % (Auto) 0.5 Neut % (Auto) 92.8 Lymph % (Auto) 4.8 L [place] % (Auto) 1.6 Eos % (Auto) 0.1 Baso % (Auto) 0.2 Immature Gran # (Auto) 0.1 Neut # (Auto) 15.6 H Lymph # (Auto) 0.8 [place] # (Auto) 0.3 L Eos # (Auto) 0.0 Baso # (Auto) 0.0 PT 10.4 INR 1.04 APTT 26.0 Puncture Site O2 Saturation ABG pH ABG pCO2 ABG pO2 ABG HCO3 ABG Total CO2 ABG Base Excess Abel Test FiO2 % Sodium 135.0 L Potassium 6.00 H Chloride 99.0 Carbon Dioxide < 5.0 L* Anion Gap [id number] BUN 21.0 H Creatinine 1.30 H Estimated GFR (MDRD) 58.00 BUN/Creatinine Ratio 16.15 Glucose 489.0 H Lactic Acid Calcium 9.90 Total Bilirubin 0.40 AST 27.0 ALT 18.0 Alkaline Phosphatase 115.0 Total Creatine Kinase 35.0 L Troponin I < 0.010 Total Protein 9.10 H Albumin 5.20 H Globulin 3.90 Albumin/Globulin Ratio 1.33 Amylase 47.0 Lipase 46.0 Procalcitonin Urine Color Urine Clarity Urine pH Ur Specific Keeler Urine Protein Urine Glucose (UA) Urine Ketones Urine Blood Urine Nitrite Urine Bilirubin Urine Urobilinogen Ur Leukocyte Esterase Urine Microscopic WBC Ur Squamous Epith Cells Hyaline Casts Influ A Molecular Assay Influ B Molecular Assay 01/25/18 01/25/18 01/25/18 08:05 08:05 08:05 WBC RBC Hgb Hct MCV MCH MCHC RDW Coeff of Maritza Plt Count Immature Gran % (Auto) Neut % (Auto) Lymph % (Auto) [place] % (Auto) Eos % (Auto) Baso % (Auto) Immature Gran # (Auto) Neut # (Auto) Lymph # (Auto) [place] # (Auto) Eos # (Auto) Baso # (Auto) PT INR APTT Puncture Site O2 Saturation ABG pH ABG pCO2 ABG pO2 ABG HCO3 ABG Total CO2 ABG Base Excess Abel Test FiO2 % Sodium Potassium Chloride Carbon Dioxide Anion Gap BUN Creatinine Estimated GFR (MDRD) BUN/Creatinine Ratio Glucose Lactic Acid 2.30 H Calcium Total Bilirubin AST ALT Alkaline Phosphatase Total Creatine Kinase Troponin I Total Protein Albumin Globulin Albumin/Globulin Ratio Amylase Lipase Procalcitonin 1.29 Urine Color Urine Clarity Urine pH Ur Specific Keeler Urine Protein Urine Glucose (UA) Urine Ketones Urine Blood Urine Nitrite Urine Bilirubin Urine Urobilinogen Ur Leukocyte Esterase Urine Microscopic WBC Ur Squamous Epith Cells Hyaline Casts Influ A Molecular Assay Negative by naat Influ B Molecular Assay Negative by naat 01/25/18 01/25/18 08:05 09:20 WBC RBC Hgb Hct MCV MCH MCHC RDW Coeff of Maritza Plt Count Immature Gran % (Auto) Neut % (Auto) Lymph % (Auto) [place] % (Auto) Eos % (Auto) Baso % (Auto) Immature Gran # (Auto) Neut # (Auto) Lymph # (Auto) [place] # (Auto) Eos # (Auto) Baso # (Auto) PT INR APTT Puncture Site R brach O2 Saturation 96.0 ABG pH 7.121 L* ABG pCO2 13.2 L ABG pO2 108.0 H ABG HCO3 4.3 L ABG Total CO2 < 5 L ABG Base Excess -25 L Abel Test + FiO2 % 21.0 Sodium Potassium Chloride Carbon Dioxide Anion Gap BUN Creatinine Estimated GFR (MDRD) BUN/Creatinine Ratio Glucose Lactic Acid Calcium Total Bilirubin AST ALT Alkaline Phosphatase Total Creatine Kinase Troponin I Total Protein Albumin Globulin Albumin/Globulin Ratio Amylase Lipase Procalcitonin Urine Color Light Urine Clarity Clear Urine pH 5.0 Ur Specific Keeler 1.025 Urine Protein 2+ Urine Glucose (UA) 2+ Urine Ketones 4+ Urine Blood Trace-lysed Urine Nitrite Negative Urine Bilirubin 1+ Urine Urobilinogen 0.2 Ur Leukocyte Esterase Negative Urine Microscopic WBC 0-2 Ur Squamous Epith Cells 0-2 Hyaline Casts 0-2 Influ A Molecular Assay Influ B Molecular Assay Orders Category Date Time Status ABG DRAW REQUEST Stat CARDIO 01/25/18 07:48 Completed EKG-(ED ONLY) Stat CARDIO 01/25/18 07:45 Completed EKG-(ED ONLY) Stat CARDIO 01/25/18 09:11 Completed NPO REMINDER: IMAGING ONCE CARE 01/25/18 07:48 Completed NPO REMINDER: IMAGING ONCE CARE 01/25/18 10:27 Active ED IV/MEDIPORT/POWERPORT .ONCE EMERGENCY 11/19/18 07:45 Active ABG Stat LAB 01/25/18 09:20 Completed AMYLASE Stat LAB 01/25/18 08:05 Completed BLOOD CULTURE (ED ONLY) Stat LAB 01/25/18 08:05 Received CBC W/ AUTO DIFF Stat LAB 01/25/18 08:05 Completed COMPREHENSIVE METABOLIC PANEL Stat LAB 01/25/18 08:05 Completed CREATINE KINASE Stat LAB 01/25/18 08:05 Completed FLU A/B MOLECULAR Stat LAB 01/25/18 08:05 Completed LACTIC ACID Stat LAB 01/25/18 08:05 Completed LIPASE Stat LAB 01/25/18 08:05 Completed MOLECULAR GROUP A STREP Stat LAB 01/25/18 08:05 Completed PARTIAL THROMBOPLASTIN TIME Stat LAB 01/25/18 08:05 Completed PROCALCITONIN Stat LAB 01/25/18 08:05 Completed PT WITH INR Stat LAB 01/25/18 08:05 Completed TROPONIN I Stat LAB 01/25/18 08:05 Completed URINALYSIS C & S IF INDICATED Stat LAB 01/25/18 08:05 Completed 0.9 % Sodium Chloride [Saline Flush] MEDS 01/25/18 07:45 Active 1 syr IVF PRN PRN 0.9 % Sodium Chloride [Sodium Chloride] 100 ml MEDS 01/25/18 09:30 Active Insulin Regular, Human [Humulin R] 100 unit IV 5 unit/hr Insulin Regular, Human [Humulin R] MEDS 01/25/18 10:02 Discontinued 15 unit IVP ONCE STA Morphine Sulfate [Morphine 4 mg/ml Syringe] MEDS 01/25/18 07:46 Discontinued 4 mg IVP ONCE STA Ondansetron HCl/Pf [Zofran 4 mg/2 ml] MEDS 01/25/18 07:47 Discontinued 4 mg IVP ONCE STA Sodium Bicarb 7.5% [Sodium Bicarbonate 7.5%] MEDS 01/25/18 09:48 Discontinued 44.6 meq IVP ONCE STA Sodium Chloride 0.9% [Sodium Chloride] 1,000 ml MEDS 01/25/18 07:46 Discontinued IV BOLUS Sodium Chloride 0.9% [Sodium Chloride] 1,000 ml MEDS 01/25/18 09:[address] ABDOMEN/PELVIS W CONTRAST Stat RADS 01/25/18 07:[address] CHEST W/CONTRAST Stat RADS 01/25/18 07:47 Completed ULTRASOUND ABDOMEN, RT. UPPER QUAD [U/S ABDOMEN, RT. RADS 01/25/18 10:27 Ordered UPPER QUAD] Stat Medications Generic Name Dose Route Start Last Admin Trade Name Freq PRN Reason Stop Dose Admin Insulin Human Regular 100 unit 100 mls @ 5 mls/hr 01/25/18 09:30 01/25/18 09: 48 / Sodium Chloride IV 5 unit/hr .Q20H PRIMITIVO 5 mls/hr Administration Protocol 5 UNIT/HR Sodium Chloride 1 syr 01/25/18 07:45 01/25/18 08:18 Saline Flush IVF 1 syr PRN PRN Administration To flush IV Discontinued Medications Generic Name Dose Route Start Last Admin Trade Name Freq PRN Reason Stop Dose Admin Sodium Chloride 1,000 mls @ 1,000 mls/hr 01/25/18 07:46 01/25/18 08:18 Sodium Chloride IV 01/25/18 08:45 1,000 mls/hr BOLUS STA Administration Sodium Chloride 1,000 mls @ 1,000 mls/hr 01/25/18 09:35 01/25/18 09:48 Sodium Chloride IV 01/25/18 10:34 1,000 mls/hr BOLUS STA Administration Insulin Human Regular 15 unit 01/25/18 10:02 01/25/18 10:18 Humulin R IVP 01/25/18 10:03 15 unit ONCE STA Administration Morphine Sulfate 4 mg 01/25/18 07:46 01/25/18 08:26 Morphine 4 Mg/Ml Syringe IVP 01/25/18 07:47 4 mg ONCE STA Administration Ondansetron HCl 4 mg 01/25/18 07:47 01/25/18 08:20 Zofran 4 Mg/2 Ml IVP 01/25/18 07:48 4 mg ONCE STA Administration Sodium Bicarbonate 44.6 meq 01/25/18 09:48 01/25/18 10:23 Sodium Bicarbonate 7.5% IVP 01/25/18 09:49 44.6 meq ONCE STA Administration Vital Signs: Temp Pulse Resp BP Pulse Ox 01/25/18 07:27 97 F L 123 H 22 152/99 H 98 Departure - Departure Time of Disposition: 10:53 Disposition: HOME SELF-CARE Discharge Problem: DKA, type 1 Qualifiers: Diabetes mellitus complication detail: without coma Qualified Code(s): E10.10 - Type 1 diabetes mellitus with ketoacidosis without coma Instructions: Diabetic Ketoacidosis (DC) Condition: Good Pt referred to PMD for follow-up: Yes IPMP verified?: No Additional Instructions: Please call your Family Physician as soon as possible to schedule a follow-up appointment. Allergies/Adverse Reactions: Allergies butorphanol [From Stadol] Adverse Reaction (Verified 01/25/18 07:36) ketorolac [From Toradol] Adverse Reaction (Verified 01/25/18 07:36) orphenadrine [From Norflex] Adverse Reaction (Verified 01/25/18 07:36) Home Medications: Ambulatory Orders Atorvastatin Calcium [Lipitor] 40 mg PO BEDTIME 05/24/16 Lisinopril/Hydrochlorothiazide [Lisinopril-Hctz 10-12.5 mg Tab] 10 each PO DAILY 05/24/16 Insulin Lispro [Humalog] 10 unit SUBCUT TIDWM PRN 06/23/16 Ticagrelor [Brilinta] 90 mg PO BID 09/24/16 Aspirin 81 mg PO ONCE 05/27/17 Diazepam 2 mg PO BEDTIME 05/27/17 Gabapentin 600 mg PO TID 05/27/17 Insulin Glargine,Hum.rec.anlog [Lantus] 90 unit SQ BID vial 05/27/17 Pantoprazole Sodium [Protonix] 25 mg PO DAILY 05/27/17 Oxycodone-Acetaminophen 10-325 [Percocet 10-325] 1 tab PO Q4H 12/15/17 Transfer Form Completed: Yes Disposition Discussed With: Patient
--- NOTE | 2018-01-25 11:06 | US ---
EXAM: Limited right upper quadrant ultrasound. HISTORY: Right upper quadrant pain. Distended gallbladder seen on CT COMPARISON: CT abdomen pelvis from same day TECHNIQUE: Mckeon scale, color and Doppler ultrasound evaluation of the right upper quadrant. FINDINGS: LIVER: There is normal echotexture without solid mass lesions or intrahepatic ductal dilatation. Port al venous flow is antegrade. Liver size is normal. GALLBLADDER: Somewhat distended. There is sludge identified. Gallbladder wall thickness is 0.25 cm. T here is no sonographic Harper sign. COMMON BILE DUCT: 0.64 cm. No filling defects. PANCREAS: Not seen. RIGHT KIDNEY: Not seen. There is no ascites or visualized adenopathy. IMPRESSION: 1. Distended gallbladder containing sludge.
== END 2018-01-25 11:45 | disposition short-term general hospital (02) ==
LOC: ED 07:27
DX: E10.10 Type 1 diabetes mellitus with ketoacidosis without coma (principal); R53.1 Weakness; R11.10 Vomiting, unspecified; R10.9 Unspecified abdominal pain; I25.810 Atherosclerosis of coronary artery bypass graft(s) without angina pectoris; Z79.899 Other long term (current) drug therapy; Z87.442 Personal history of urinary calculi; Z72.0 Tobacco use; M79.605 Pain in left leg; M79.604 Pain in right leg
CPT/HCPCS: 36415; 80053; 81001; 82150; 82550; 82803; 82962; 83605; 83690; 84145; 84484; 85025; 85610; 85730; 87040; 87502; 87651; 93005; 93010; 96361; 96365; 96375; 99285

== ENCOUNTER 2018-07-31 11:00 | Outpatient (CLI) | END 2018-07-31 11:18 | disposition short-term general hospital (02) | LOC: AMBL 11:00 | PROVIDERS: ATTEND Internal Medicine Geriatric Medicine | DX: R53.1 Weakness (principal); R07.9 Chest pain, unspecified; R10.13 Epigastric pain; R06.03 Acute respiratory distress; R11.2 Nausea with vomiting, unspecified; R20.0 Anesthesia of skin; R73.9 Hyperglycemia, unspecified; S09.90XA Unspecified injury of head, initial encounter; W19.XXXA Unspecified fall, initial encounter ==

== ENCOUNTER 2018-10-24 19:25 | Outpatient (CLI) ==
[2018-09-14 09:33] VITALS: BMI 34.2
== END 2018-10-24 19:26 | disposition home or self-care (01) ==
LOC: AMBL 19:25
PROVIDERS: ATTEND Family Medicine
DX: R07.9 Chest pain, unspecified (principal)